=== PATIENT | male | born 1940 | race Caucasian/White ===

== ENCOUNTER → 2019-12-05 13:00 | Outpatient (BNVA) | payer MEDICARE, SELFPAY | PROVIDERS: Visit Provider Nurse Practitioner Family | DX: I10 Essential (primary) hypertension (principal); F17.200 Nicotine dependence, unspecified, uncomplicated; J44.9 Chronic obstructive pulmonary disease, unspecified | CPT/HCPCS: 80053; 80061; 85025 ==

== ENCOUNTER 2020-01-25 14:19 | Inpatient (IN) | payer MEDICARE, SELFPAY ==
[2020-01-25] VITALS (55 sets, daily range): BP systolic 67–133; BP diastolic 37–84; PULSE 77–126; RESP 16–40; TEMP 36.6–37.6; O2SAT 66–100; BMI 20.9
--- NOTE | 2020-01-25 | CTR_ITS ---
PROCEDURE INFORMATION: Exam: CT Pelvis Without Contrast; Skeletal Exam date and time: 01/25/2020 9:35 PM Age: 79 years old Clinical indication: Injury or trauma; Initial encounter; Blunt trauma (contusions or hematomas); Bilateral; Pelvic region; Patient HX: C/O lbp, sacral and hip pain with difficulty ambulating post fall; Additional info: Hip and sacral pain TECHNIQUE: Imaging protocol: Computed tomography images of the pelvis without contrast. Exam focused on the skeletal structures. Radiation optimization: All CT scans at this facility use at least one of these dose optimization techniques: automated exposure control; mA and/or kV adjustment per patient size (includes targeted exams where dose is matched to clinical indication); or iterative reconstruction. COMPARISON: CT abdomen pelvis wo con [id number] 01/25/2020 4:49 PM RADIATION DOSE METRICS: Total DLP (mGy-cm): 215.05 FINDINGS: Tubes, catheters and devices: A balloon bladder catheter is present. Stomach and bowel: There is no evidence of intestinal perforation or obstruction. Bones/joints: There is a nondisplaced isolated fracture of the left greater trochanter. No left subcapital or intertrochanteric femur fracture. No additional acute fracture in the pelvis. There is mild subcutaneous edema lateral to the left femur fracture. There is severe degenerative changes in the lumbar spine as described on the lumbar spine CT report of the same day. There is diffuse osteopenia. There are moderate degenerative changes in the hip joints. Old healed fractures of the right inferior pubic ramus and right acetabulum are noted with bridging bone. No acute sacral fracture. There are moderate degenerative changes in the sacroiliac joints. Soft tissues: Unremarkable. Other findings: No evidence of avascular necrosis CT/CT pelvis wo con [id number] IMPRESSION: 1. There is a nondisplaced isolated fracture of the left greater trochanter. No left subcapital or intertrochanteric femur fracture. Old healed pelvic fractures are noted. 2. Severe degenerative changes in the spine are noted. Radiation Dose CTDIVOL = (mGy): DLP = 215.05 (mGy-cm)
--- NOTE | 2020-01-25 14:39 | XRR_ITS ---
PROCEDURE INFORMATION: Exam: XR Chest, 1 View Exam date and time: 01/25/2020 2:46 PM Age: 79 years old Clinical indication: Shortness of breath; Additional info: Dyspnea/cough TECHNIQUE: Imaging protocol: XR of the chest Views: 1 view. COMPARISON: No relevant prior studies available. FINDINGS: Lungs: Unremarkable. No consolidation. Pleural space: Unremarkable. No pleural effusion. No pneumothorax. Heart/Mediastinum: Unremarkable. No cardiomegaly. Bones/joints: Unremarkable. XR/XR chest 1V portable [id number] IMPRESSION: No acute findings.
--- NOTE | 2020-01-25 14:42 | ECG_ITS ---
[facility] Test Date: 2020-01-25 Pat Name: Gordon Gooden Department: Room: Gender: Male Structural Drafter: : 1940 Requested By: Abdoul Power Order Number: [id number] Akhil MD: Karine Jama M.D. Measurements Intervals [place] Rate: 105 P: [place]: -1 QRS: -54 QRSD: 93 T: 77 QT: 415 QTc: 549 Interpretive Statements ATRIAL FIBRILLATION WITH RAPID VENTRICULAR RESPONSE WITH ABERRANT CONDUCTION OR VENTRICULAR PREMATURE COMPLEXES LEFT ANTERIOR FASCICULAR BLOCK [QRS AXIS <= -45, QR IN I, RS IN II] ST DEVIATION AND MODERATE T-WAVE ABNORMALITY, CONSIDER ANTEROLATERAL ISCHEMIA [-0.1+ mV T WAVE IN V3-V6] Compared to ECG 07/19/2017 11:58:04 Aberrant conduction of supraventricular beat(s) now present Left anterior fascicular block now present T-wave abnormality now present Possible ischemia now present Sinus rhythm no longer present Left ventricular hypertrophy no longer present Electronically Signed On 01-25-2020 18:12:19 CDT by Karine Jama M.D. [id number]
[2020-01-25 14:46] LABS: ABG PCO2 31.9 mmHg (35-45); ABG PH Result 7.35 (7.35-7.45); HCO3 ABG 17.6 mmol/L (22-26)
--- NOTE | 2020-01-25 14:46 | W.ED.SOB ---
HPI - SOB/Dyspnea General: Chief Complaint: Shortness of Breath/Dyspnea Stated Complaint: RESP DISTRESS Time Seen by Provider: 01/25/20 14:37 History of Present Illness: HPI Narrative: 79-year-old male brought in by EMS with shortness of breath, he arrived with CPAP on. Recheck CPAP after a month a nonrebreather and his sats are at 90% see gases below. He is not able to give any history his did arrive and I went to talk to her she states he has been very sleepy lately please complained of anything there is been no complaint of fever. No nausea vomiting or diarrhea no one else at home is been sick he is not any chest or abdominal pain he usually sees nurse practitioner and mammaoth since Dr. Carlos retired. As far as the is aware he is not had any change of medicines recently. Initially when the patient arrived to talk to him he stated he wanted to be intubated however is not aware of time place or person I talked to the she is adamant that he did not want to be intubated at any point. MD elicited complaint: shortness of breath Pertinent past history: COPD Onset (ago): day(s) Timing: constant Severity: mild Exacerbating factors: exertion Relieving factors: oxygen, rest and upright position Known history of: COPD Associated symptoms: Deny cough, myalgias, rash or sense of impending doom Treatment prior to arrival: oxygen Review of Systems General: Reports: ROS unobtainable due to medical condition and ROS unobtainable due to mental status PFSH ED PFSH: Medical History Cancer, epiglottis COPD (chronic obstructive pulmonary disease) Hx of radiation therapy Hypertension Smoker unmotivated to quit Surgical History No significant past surgical history Family History Other Healthy adult Social History Smoking and tobacco status: current every day smoker cigarettes Packs smoked per day: 1.5 Alcohol intake: never Substance/Drug Use: never Household members: spouse Marital status: Current occupational status: retired Physical Exam Const: GENERAL APPEARANCE: cooperative and lethargic ORIENTATION/CONSCIOUSNESS: Yes lethargic HENMT: COMMON NORMALS: normocephalic and atraumatic HEAD & SCALP: normocephalic and atraumatic Eye: COMMON NORMALS: Equal, round and reactive pupils present, EOMs intact bilaterally, conjunctivae normal and no scleral icterus CONJUNCTIVA: Yes conjunctivae normal PUPIL: Yes Equal, round and reactive pupils present Neck/C-Spine: COMMON NORMALS: no lymphadenopathy, supple and no JVD Lymph: LYMPHATIC: no lymphadenopathy noted and no lymphedema noted Resp: EFFORT & INSPECTION: No able to speak in complete sentences AUSCULTATION: rales bilateral at the base and diminished lung sounds Cardio: COMMON NORMALS: no JVD RATE: tachycardic RHYTHM: abnormal rhythm irregularly irregular GI: COMMON NORMALS: Soft to palpation and No hepatosplenomegaly present AUSCULTATION: Yes normoactive bowel sounds PALPATION: Yes Soft to palpation, No Tenderness to palpation present (GI), No Guarding due to palpation present (GI) and Yes No hepatosplenomegaly present Extremity: COMMON NORMALS: normal to inspection, capillary refill normal, no clubbing, cyanosis or edema, no calf tenderness and no pedal edema Neuro: SENSORIUM/ORIENTATION: Yes lethargic Skin: COMMON NORMALS: no rashes or lesions noted GENERAL SKIN EXAM: no rashes or lesions noted Course Vital Signs: Vital signs: Vital Signs Temperature 97.9 F 01/27/20 04:00 Pulse Rate 100 01/27/20 05:00 Respiratory Rate 18 01/27/20 05:00 Blood Pressure 124/70 01/27/20 05:00 Pulse Oximetry 91 01/27/20 05:00 MDM - SOB/Dyspnea MDM Narrative: Medical decision making narrative: Initial blood pressure and 70 systolic patient responded very well to a fluid bolus pressure improved to 120 27 systolic he is in atrial fibrillation. Blood gases were good. He was switched to a BiPAP and is maintaining well. He is in atrial fibrillation. Linder was placed patient had a large amount of urine out and also had significant hematuria CT shows hydronephrosis and hydroureter. He has an elevated d-dimer although not some the source of clot at this point we did start him on heparin. He has no acute ST changes but does have elevated troponin. Finally has significant breakdown of the skin of the scrotum and penis almost appears as herpetic in nature there are no vesicles. With BiPAP he became more conscious and he denies significant pain of the penis. Discussed Dr. Mcgee will admit to the ICU. Currently he is on dopamine and BiPAP as well as heparin. Lab Data: Labs: Lab Results 01/25/20 01/25/20 01/25/20 Range/Units 14:10 14:29 14:29 WBC (4.0-10.0) 10^3/ uL RBC (4.1-5.3) 10^6/u L Hgb (11.7-16.6) g/dL Hct (42.0-52.0) % MCV (80-94) fL MCH (28.0-34.0) pg MCHC (30.0-36.0) g/dL RDW (12.1-15.1) % Plt Count (130-400) 10^3/c mm MPV (7.4-10.4) fL Neut % (Auto) % Lymph % (Auto) % Parke % (Auto) % Eos % (Auto) % Baso % (Auto) % Neut # (Auto) (1.8-7.7) 10^3/u L Lymph # (Auto) (0.8-4.8) 10^3/u L Parke # (Auto) (0.2-0.9) 10^3/u L Eos # (Auto) (0.0-0.8) 10^3/u L Baso # (Auto) (0.0-0.1) 10^3/u L Nucleated RBC % (a uto) % Nucleated RBCs # /100WBC PT 14.60 (12.1-14.9) SECO NDS INR 1.11 (0.8-1.2) APTT 26.5 (23.9-36.7) SECO NDS Fibrinogen 651 H (174-498) mg/dL D-Dimer >= 20.00 H (0-0.59) ug/mIFE U Specimen Type Art Sample Site Lt brach ABG pH 7.35 (7.35-7.45) ABG pCO2 31.9 L (35-45) mmHg ABG pO2 138.0 H (80.0-100.0) mmH g ABG HCO3 17.6 L (22-26) mmol/L ABG O2 Saturation 98.9 ABG Base Excess -7.0 L (-2.0-2.0) mmol/ L Jaime Test Na Hematocrit 41.2 L (42-52) % Hgb O2 Saturation 97.5 (95-100) % Carboxyhemoglobin 0.9 (0.4-20.1) %THgb Methemoglobin 0.4 (0.4-1.5) % Total Hemoglobin 13.4 L (14-18) g/dL Sodium 141.0 139 (131-143) mmol/L Potassium 3.4 L 3.7 (3.5-5.0) mmol/L Glucose 141.0 H 132 H (70-115) mg/dL Ionized Calcium 1.1 (1.1-1.4) mmol/L O2 Delivery Device Nrb O2 Liters/Min 15.0 % FiO2 100.0 % Specimen Drawn By [employer] Estate Appraiser ID Gd Chloride 101 (98-107) mmol/L Carbon Dioxide 18 L (22-29) mmol/L Anion Gap 23.7 H (5-19) BUN 55 H (8-23) mg/dL Creatinine 2.8 H (0.7-1.2) mg/dL GFR Calculation Not Reportable Estimat Average Gl ucose Hemoglobin A1c (4.0-6.0) % Calculated Osmolal ity 288 (285-295) mOsm/k g Lactic Acid (0.5-2.2) mmol/L Lactic Acid (Sepsi s) (0.5-2.2) mmol/L Calcium 8.3 L (8.5-10.5) mg/dL Magnesium 2.6 H (1.7-2.3) mg/dL Ferritin 511 H (30-400) ng/mL Total Bilirubin 1.4 H (0.15-1.2) mg/dL AST 28 (0-40) U/L ALT 24 (0-41) U/L Alkaline Phosphata se 90 (40-130) IU/L Lactate Dehydrogen ase 243 H (135-225) U/L Troponin T Baselin e (0-15) ng/L Troponin T 120 Min cowlitz (0-15) ng/L Delta Troponin T (0-10) ABS# C-Reactive Protein 151.2 H (0.0-4.9) mg/L NT-Pro-B Natriuret Pep 3617 H (0-450) pg/mL Total Protein 7.1 (6.6-8.7) g/dL Albumin 3.4 L (3.5-5.2) g/dL Globulin 3.7 (1.3-4.6) g/dL Triglycerides (0-150) mg/dL Cholesterol (0-200) mg/dL LDL Cholesterol, C alc (50-129) mg/dL Total VLDL Cholest renato (0-30) mg/dL HDL Cholesterol (60-100) mg/dL Cholesterol/HDL Ra joi (1.0-5.00) mg/dL Procalcitonin 0.48 (0-0.5) ng/mL Urine Color (Yellow) Urine Appearance (CLEAR) Urine pH (5-7) Ur Specific Gravit y (1.005-1.030) Urine Protein (Negative) Urine Glucose (UA) (Normal) Urine Ketones (Negative) Urine Blood (Negative) Urine Nitrate (Negative) Urine Bilirubin (NEGATIVE) Urine Urobilinogen (Negative) mg/dL Ur Leukocyte Anupama ase (Negative) Urine RBC (0-2) /hpf Urine WBC (0-5) /hpf Ur Squamous Epith Cells (0-5) Amorphous Sediment Urine Bacteria (NONE) SARS-CoV-2 Ag (Rap id) (Negative) 01/25/20 01/25/20 01/25/20 Range/Units 14:29 14:29 14:29 WBC 18.9 H (4.0-10.0) 10^3/ uL RBC 4.46 (4.1-5.3) 10^6/u L Hgb 13.4 (11.7-16.6) g/dL Hct 41.9 L (42.0-52.0) % MCV 93.9 (80-94) fL MCH 30.0 (28.0-34.0) pg MCHC 32.0 (30.0-36.0) g/dL RDW 15.3 H (12.1-15.1) % Plt Count 300 (130-400) 10^3/c mm MPV 11.7 H (7.4-10.4) fL Neut % (Auto) 91.6 % Lymph % (Auto) 2.9 % Parke % (Auto) 4.4 % Eos % (Auto) 0.1 % Baso % (Auto) 0.2 % Neut # (Auto) 17.29 H (1.8-7.7) 10^3/u L Lymph # (Auto) 0.6 L (0.8-4.8) 10^3/u L Parke # (Auto) 0.8 (0.2-0.9) 10^3/u L Eos # (Auto) 0.0 (0.0-0.8) 10^3/u L Baso # (Auto) 0.0 (0.0-0.1) 10^3/u L Nucleated RBC % (a uto) 0 % Nucleated RBCs # 0.0 /100WBC PT (12.1-14.9) SECO NDS INR (0.8-1.2) APTT (23.9-36.7) SECO NDS Fibrinogen (174-498) mg/dL D-Dimer (0-0.59) ug/mIFE U Specimen Type Sample Site ABG pH (7.35-7.45) ABG pCO2 (35-45) mmHg ABG pO2 (80.0-100.0) mmH g ABG HCO3 (22-26) mmol/L ABG O2 Saturation ABG Base Excess (-2.0-2.0) mmol/ L Jaime Test Hematocrit (42-52) % Hgb O2 Saturation (95-100) % Carboxyhemoglobin (0.4-20.1) %THgb Methemoglobin (0.4-1.5) % Total Hemoglobin (14-18) g/dL Sodium (131-143) mmol/L Potassium (3.5-5.0) mmol/L Glucose (70-115) mg/dL Ionized Calcium (1.1-1.4) mmol/L O2 Delivery Device O2 Liters/Min % FiO2 % Specimen Drawn By Commercial Real Estate Appraiser ID Chloride ([id number]) mmol/L Carbon Dioxide (22-29) mmol/L Anion Gap (5-19) BUN (8-23) mg/dL Creatinine (0.7-1.2) mg/dL GFR Calculation Estimat Average Gl ucose Hemoglobin A1c (4.0-6.0) % Calculated Osmolal ity (285-295) mOsm/k g Lactic Acid (0.5-2.2) mmol/L Lactic Acid (Sepsi s) (0.5-2.2) mmol/L Calcium (8.5-10.5) mg/dL Magnesium (1.7-2.3) mg/dL Ferritin (30-400) ng/mL Total Bilirubin (0.15-1.2) mg/dL AST (0-40) U/L ALT (0-41) U/L Alkaline Phosphata se (40-130) IU/L Lactate Dehydrogen ase (135-225) U/L Troponin T Baselin e 87 H (0-15) ng/L Troponin T 120 Min cowlitz (0-15) ng/L Delta Troponin T (0-10) ABS# C-Reactive Protein (0.0-4.9) mg/L NT-Pro-B Natriuret Pep (0-450) pg/mL Total Protein (6.6-8.7) g/dL Albumin (3.5-5.2) g/dL Globulin (1.3-4.6) g/dL Triglycerides 73 (0-150) mg/dL Cholesterol 116 (0-200) mg/dL LDL Cholesterol, C alc 67 (50-129) mg/dL Total VLDL Cholest renato 15 (0-30) mg/dL HDL Cholesterol 34 L (60-100) mg/dL Cholesterol/HDL Ra joi 3.41 (1.0-5.00) mg/dL Procalcitonin (0-0.5) ng/mL Urine Color (Yellow) Urine Appearance (CLEAR) Urine pH (5-7) Ur Specific Gravit y (1.005-1.030) Urine Protein (Negative) Urine Glucose (UA) (Normal) Urine Ketones (Negative) Urine Blood (Negative) Urine Nitrate (Negative) Urine Bilirubin (NEGATIVE) Urine Urobilinogen (Negative) mg/dL Ur Leukocyte Anupama ase (Negative) Urine RBC (0-2) /hpf Urine WBC (0-5) /hpf Ur Squamous Epith Cells (0-5) Amorphous Sediment Urine Bacteria (NONE) SARS-CoV-2 Ag (Rap id) (Negative) 01/25/20 01/25/20 01/25/20 Range/Units 14:40 14:44 16:25 WBC (4.0-10.0) 10^3/ uL RBC (4.1-5.3) 10^6/u L Hgb (11.7-16.6) g/dL Hct (42.0-52.0) % MCV (80-94) fL MCH (28.0-34.0) pg MCHC (30.0-36.0) g/dL RDW (12.1-15.1) % Plt Count (130-400) 10^3/c mm MPV (7.4-10.4) fL Neut % (Auto) % Lymph % (Auto) % Parke % (Auto) % Eos % (Auto) % Baso % (Auto) % Neut # (Auto) (1.8-7.7) 10^3/u L Lymph # (Auto) (0.8-4.8) 10^3/u L Parke # (Auto) (0.2-0.9) 10^3/u L Eos # (Auto) (0.0-0.8) 10^3/u L Baso # (Auto) (0.0-0.1) 10^3/u L Nucleated RBC % (a uto) % Nucleated RBCs # /100WBC PT (12.1-14.9) SECO NDS INR (0.8-1.2) APTT (23.9-36.7) SECO NDS Fibrinogen (174-498) mg/dL D-Dimer (0-0.59) ug/mIFE U Specimen Type Sample Site ABG pH (7.35-7.45) ABG pCO2 (35-45) mmHg ABG pO2 (80.0-100.0) mmH g ABG HCO3 (22-26) mmol/L ABG O2 Saturation ABG Base Excess (-2.0-2.0) mmol/ L Jaime Test Hematocrit (42-52) % Hgb O2 Saturation (95-100) % Carboxyhemoglobin (0.4-20.1) %THgb Methemoglobin (0.4-1.5) % Total Hemoglobin (14-18) g/dL Sodium (131-143) mmol/L Potassium (3.5-5.0) mmol/L Glucose (70-115) mg/dL Ionized Calcium (1.1-1.4) mmol/L O2 Delivery Device O2 Liters/Min % FiO2 % Specimen Drawn By Commercial Real Estate Appraiser ID Chloride (98-107) mmol/L Carbon Dioxide (22-29) mmol/L Anion Gap (5-19) BUN (8-23) mg/dL Creatinine (0.7-1.2) mg/dL GFR Calculation Estimat Average Gl ucose Hemoglobin A1c (4.0-6.0) % Calculated Osmolal ity (285-295) mOsm/k g Lactic Acid 4.3 H* (0.5-2.2) mmol/L Lactic Acid (Sepsi s) (0.5-2.2) mmol/L Calcium (8.5-10.5) mg/dL Magnesium (1.7-2.3) mg/dL Ferritin (30-400) ng/mL Total Bilirubin (0.15-1.2) mg/dL AST (0-40) U/L ALT (0-41) U/L Alkaline Phosphata se (40-130) IU/L Lactate Dehydrogen ase (135-225) U/L Troponin T Baselin e (0-15) ng/L Troponin T 120 Min cowlitz 119.6 H (0-15) ng/L Delta Troponin T 32.6 H* (0-10) ABS# C-Reactive Protein (0.0-4.9) mg/L NT-Pro-B Natriuret Pep (0-450) pg/mL Total Protein (6.6-8.7) g/dL Albumin (3.5-5.2) g/dL Globulin (1.3-4.6) g/dL Triglycerides (0-150) mg/dL Cholesterol (0-200) mg/dL LDL Cholesterol, C alc (50-129) mg/dL Total VLDL Cholest renato (0-30) mg/dL HDL Cholesterol (60-100) mg/dL Cholesterol/HDL Ra joi (1.0-5.00) mg/dL Procalcitonin (0-0.5) ng/mL Urine Color (Yellow) Urine Appearance (CLEAR) Urine pH (5-7) Ur Specific Gravit y (1.005-1.030) Urine Protein (Negative) Urine Glucose (UA) (Normal) Urine Ketones (Negative) Urine Blood (Negative) Urine Nitrate (Negative) Urine Bilirubin (NEGATIVE) Urine Urobilinogen (Negative) mg/dL Ur Leukocyte Anupama ase (Negative) Urine RBC (0-2) /hpf Urine WBC (0-5) /hpf Ur Squamous Epith Cells (0-5) Amorphous Sediment Urine Bacteria (NONE) SARS-CoV-2 Ag (Rap id) Negative (Negative) 01/25/20 01/25/20 01/25/20 Range/Units 16:25 16:30 17:39 WBC (4.0-10.0) 10^3/ uL RBC (4.1-5.3) 10^6/u L Hgb (11.7-16.6) g/dL Hct (42.0-52.0) % MCV (80-94) fL MCH (28.0-34.0) pg MCHC (30.0-36.0) g/dL RDW (12.1-15.1) % Plt Count (130-400) 10^3/c mm MPV (7.4-10.4) fL Neut % (Auto) % Lymph % (Auto) % Parke % (Auto) % Eos % (Auto) % Baso % (Auto) % Neut # (Auto) (1.8-7.7) 10^3/u L Lymph # (Auto) (0.8-4.8) 10^3/u L Parke # (Auto) (0.2-0.9) 10^3/u L Eos # (Auto) (0.0-0.8) 10^3/u L Baso # (Auto) (0.0-0.1) 10^3/u L Nucleated RBC % (a uto) % Nucleated RBCs # /100WBC PT (12.1-14.9) SECO NDS INR (0.8-1.2) APTT (23.9-36.7) SECO NDS Fibrinogen (174-498) mg/dL D-Dimer (0-0.59) ug/mIFE U Specimen Type Sample Site ABG pH (7.35-7.45) ABG pCO2 (35-45) mmHg ABG pO2 (80.0-100.0) mmH g ABG HCO3 (22-26) mmol/L ABG O2 Saturation ABG Base Excess (-2.0-2.0) mmol/ L Jaime Test Hematocrit (42-52) % Hgb O2 Saturation (95-100) % Carboxyhemoglobin (0.4-20.1) %THgb Methemoglobin (0.4-1.5) % Total Hemoglobin (14-18) g/dL Sodium (131-143) mmol/L Potassium (3.5-5.0) mmol/L Glucose (70-115) mg/dL Ionized Calcium (1.1-1.4) mmol/L O2 Delivery Device O2 Liters/Min % FiO2 % Specimen Drawn By Commercial Real Estate Appraiser ID Chloride (98-107) mmol/L Carbon Dioxide (22-29) mmol/L Anion Gap (5-19) BUN (8-23) mg/dL Creatinine (0.7-1.2) mg/dL GFR Calculation Estimat Average Gl ucose 111 Hemoglobin A1c 5.5 (4.0-6.0) % Calculated Osmolal ity (285-295) mOsm/k g Lactic Acid (0.5-2.2) mmol/L Lactic Acid (Sepsi s) 2.5 H (0.5-2.2) mmol/L Calcium (8.5-10.5) mg/dL Magnesium (1.7-2.3) mg/dL Ferritin (30-400) ng/mL Total Bilirubin (0.15-1.2) mg/dL AST (0-40) U/L ALT (0-41) U/L Alkaline Phosphata se (40-130) IU/L Lactate Dehydrogen ase (135-225) U/L Troponin T Baselin e (0-15) ng/L Troponin T 120 Min cowlitz (0-15) ng/L Delta Troponin T (0-10) ABS# C-Reactive Protein (0.0-4.9) mg/L NT-Pro-B Natriuret Pep (0-450) pg/mL Total Protein (6.6-8.7) g/dL Albumin (3.5-5.2) g/dL Globulin (1.3-4.6) g/dL Triglycerides (0-150) mg/dL Cholesterol (0-200) mg/dL LDL Cholesterol, C alc (50-129) mg/dL Total VLDL Cholest renato (0-30) mg/dL HDL Cholesterol (60-100) mg/dL Cholesterol/HDL Ra joi (1.0-5.00) mg/dL Procalcitonin (0-0.5) ng/mL Urine Color Red (Yellow) Urine Appearance Bloody A (CLEAR) Urine pH 9 H (5-7) Ur Specific Gravit y 1.010 (1.005-1.030) Urine Protein 1+ H (Negative) Urine Glucose (UA) Norm (Normal) Urine Ketones Negative (Negative) Urine Blood 3+ H (Negative) Urine Nitrate Negative (Negative) Urine Bilirubin Neg (NEGATIVE) Urine Urobilinogen Norm (Negative) mg/dL Ur Leukocyte Anupama ase 1+ H (Negative) Urine RBC Too numerous to c nt H (0-2) /hpf Urine WBC 5-10 H (0-5) /hpf Ur Squamous Epith Cells None (0-5) Amorphous Sediment Not Reportable Urine Bacteria 3+ H (NONE) SARS-CoV-2 Ag (Rap id) (Negative) Discharge Plan Discharge Patient Disposition: Admitted As Inpatient Admit Provider: Jacinto Mcgee Clinical Impression: Sepsis, Hematuria, Acute urinary retention, Rash of genital area, LASHON (acute kidney injury), Elevated d-dimer, A-fib, Troponin level elevated Condition: Stable Interventions: ED Discharge Assessment Last Done: 01/25/20 18:56 ED Charges Last Done: 01/25/20 18:56 Discharge Date/Time: 01/25/20 18:57 Coding Level of Care Code ED Implementation Engineer 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
[2020-01-25 14:47] LABS: Blood Gas Operator Identificat GD; Oxygen Device NRB; Oxygen Saturation ABG 98.9; Potassium Level - ABG 3.4 mmol/L (3.5-5.0)
[2020-01-25 14:48] LABS: Arterial Blood Gas Hematocrit 41.2 % (42-52); Blood Gas Sample Site LT BRACH; Blood Gas Sample Type ART; Carboxyhemoglobin 0.9 %THgb (0.4-20.1); HGB O2 Sat 97.5 % (95-100); Ionized Calcium Level - ABG 1.1 mmol/L (1.1-1.4); Methemoglobin 0.4 % (0.4-1.5); Total Hemoglobin 13.4 g/dL (14-18)
[2020-01-25] MEDS: sodium chloride 0.9% 1,769.01 ML 1769 ML IV (14:50)
[2020-01-25] MEDS: levofloxacin-dextrose 5 % 750 MG/150 ML PREMIX 100 MG IV (15:00)
[2020-01-25 15:11] LABS: Basophils % 0.2 %; Eosinophils % 0.1 %; Hematocrit 41.9 % (42.0-52.0); Hemoglobin 13.4 g/dL (11.7-16.6); Lymphocytes # 0.6 10^3/uL (0.8-4.8); Lymphocytes % 2.9 %; Mean Corpuscular Volume 93.9 fL (80-94); Mean Platelet Volume 11.7 fL (7.4-10.4); Monocytes # 0.8 10^3/uL (0.2-0.9); Monocytes % 4.4 %; Neutrophils # 17.29 10^3/uL (1.8-7.7); Neutrophils % 91.6 %; Nucleated Red Blood Cells % 0 %; Platelet Count 300 10^3/cmm (130-400); Red Blood Count 4.46 10^6/uL (4.1-5.3); Red Cell Distribution Width 15.3 % (12.1-15.1); White Blood Count 18.9 10^3/uL (4.0-10.0)
[2020-01-25 15:18] LABS: INR 1.11 (0.8-1.2)
[2020-01-25 15:19] LABS: Fibrinogen 651 mg/dL (174-498); Partial Thromboplastin Time 26.5 SECONDS (23.9-36.7)
[2020-01-25 15:30] LABS: Troponin(5th) Baseline 87 ng/L (0-15)
[2020-01-25 15:36] LABS: D Dimer >= 20.00 ug/mIFEU (0-0.59); NT Pro B Type Natriuretic Pept 3617 pg/mL (0-450); Procalcitonin 0.48 ng/mL (0-0.5)
[2020-01-25 15:38] LABS: SARS Covid-2 Antigen Negative (Negative)
[2020-01-25 15:48] LABS: Alanine Aminotransferase 24 U/L (0-41); Albumin Level 3.4 g/dL (3.5-5.2); Alkaline Phosphatase 90 IU/L (40-130); Anion Gap 23.7 (5-19); Aspartate Amino Transferase 28 U/L (0-40); Blood Urea Nitrogen 55 mg/dL (8-23); C Reactive Protein 151.2 mg/L (0.0-4.9); Calcium 8.3 mg/dL (8.5-10.5); Carbon Dioxide 18 mmol/L (22-29); Chloride 101 mmol/L (98-107); Ferritin 511 ng/mL (30-400); Globulin 3.7 g/dL (1.3-4.6); Glucose 132 mg/dL (65-115); Lactate Dehydrogenase 243 U/L (135-225); Magnesium 2.6 mg/dL (1.7-2.3); Osmolality Calculated 288 mOsm/kg (285-295); Potassium 3.7 mmol/L (3.5-5.1); Sodium 139 mmol/L (136-145); Total Bilirubin 1.4 mg/dL (0.15-1.2); Total Protein 7.1 g/dL (6.6-8.7)
[2020-01-25 15:49] LABS: Lactic Sepsis W/Reflex 4.3 mmol/L (0.5-2.2)
--- NOTE | 2020-01-25 16:06 | USR_ITS ---
PROCEDURE INFORMATION: Exam: US Duplex Lower Extremity Veins, Bilateral Exam date and time: 01/25/2020 4:40 PM Age: 79 years old Clinical indication: Abnormal findings; Abnormal lab test; Elevated d-dimer; Additional info: Elevated d dimer TECHNIQUE: Imaging protocol: Real-time duplex ultrasound of the extremities with 2-D restrepo scale, color Doppler flow and spectral waveform analysis with image documentation. Complete exam focused on the bilateral lower extremity veins. COMPARISON: No relevant prior studies available. FINDINGS: Right deep veins: Unremarkable. The common femoral, femoral, proximal profunda femoral and popliteal veins are patent without thrombus. Normal Doppler waveforms. Normal compressibility and/or augmentation response. Right superficial veins: Saphenofemoral junction is patent without thrombus. Left deep veins: Unremarkable. The common femoral, femoral, proximal profunda femoral and popliteal veins are patent without thrombus. Normal Doppler waveforms. Normal compressibility and/or augmentation response. Left superficial veins: Saphenofemoral junction is patent without thrombus. Soft tissues: Unremarkable. Other findings: Incidental note is made that the bilateral calf veins are not well visualized. US/CV venous duplex [facility] [id number] IMPRESSION: No evidence of deep vein thrombosis.
[2020-01-25] MEDS: DOPamine drip 400 MG/250 ML PREMIX 13.3 MG IV (16:34)
--- NOTE | 2020-01-25 16:35 | CTR_ITS ---
PROCEDURE INFORMATION: Exam: CT Abdomen And Pelvis Without Contrast Exam date and time: 01/25/2020 4:36 PM Age: 79 years old Clinical indication: Abdominal pain; Generalized; Patient HX: Urinary retention - gross hematuria - abd pain - elev wbc; Additional info: Urinary retention, abd pain, elevated wbc TECHNIQUE: Imaging protocol: Computed tomography of the abdomen and pelvis without contrast. Radiation optimization: All CT scans at this facility use at least one of these dose optimization techniques: automated exposure control; mA and/or kV adjustment per patient size (includes targeted exams where dose is matched to clinical indication); or iterative reconstruction. COMPARISON: CR Hip 2-3v RIGHT wwo Pelv* [id number] 10/09/2017 10:19 AM RADIATION DOSE METRICS: Total DLP (mGy-cm): 268.16 FINDINGS: Tubes, catheters and devices: A balloon bladder catheter is present. Lungs: There is ground-glass opacity in the left lung base compatible with pneumonitis/early pneumonic infiltrate. There is subpleural atelectasis of the dependent portions of the lungs. Mediastinal space: A moderate hiatal hernia is present. Liver: Unremarkable.No mass. Gallbladder and bile ducts: The gallbladder demonstrates layering density consistent with noncalcified stones or sludge. Pancreas: Normal. No ductal dilation. Spleen: Normal. No splenomegaly. Adrenals: Normal. No mass. Kidneys and ureters: There is moderate left hydronephrosis and hydroureter and mild right hydronephrosis and hydroureter but no obstructing calculi. Bilateral renal vascular calcifications are noted without definite nephrolithiasis. Stomach and bowel: Extensive diverticulosis is present in the distal colon. There is no evidence of intestinal perforation or obstruction. There is no evidence of colitis/diverticulitis. Appendix: No evidence of appendicitis. Intraperitoneal space: Unremarkable. No free air. No significant fluid collection. Retroperitoneal space: No retroperitoneal fluid or leak. Vasculature: There are atherosclerotic changes in the aorta. 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 The right common iliac artery measures 2.1 cm in the left measures 1.6 cm. Lymph nodes: Unremarkable.No enlarged lymph nodes. Bladder: The bladder wall is thickened but the bladder is also decompressed in this is nonspecific. Reproductive: The prostate demonstrates moderate nonspecific enlargement. The seminal vesicles are normal. Bones/joints: Old healed right pubic rami fractures are noted. There is bilateral spondylolysis of L5 with grade 1 spondylolisthesis of L5 on S1. There is severe degenerative changes in the lumbar spine. No acute bony abnormality. Soft tissues: Unremarkable. Other findings: There are moderate to severe emphysematous changes. CT/CT abdomen pelvis wo con [id number] IMPRESSION: 1. There is ground-glass opacity in the left lung base compatible with pneumonitis/early pneumonic infiltrate. 2. Bilateral hydronephrosis left greater than right without obstructing calculi. The bladder wall appears thickened although it is collapsed in this appearance may reflect bladder outlet obstruction due to prostatomegaly. 3. Diverticulosis without diverticulitis. No bowel thickening or inflammatory changes are identified. Radiation Dose CTDIVOL = (mGy): DLP = 268.16 (mGy-cm)
[2020-01-25 16:36] LABS: Reflex Lactate Order REFLEX LACTIC ORDERD
--- NOTE | 2020-01-25 16:42 | ECG_ITS ---
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 Measurements Intervals Heidrick Rate: 102 P: 258 ID: [id number] QRS: -72 QRSD: 78 T: 56 QT: 374 QTc: 488 Interpretive Statements ECTOPIC ATRIAL TACHYCARDIA WITH OCCASIONAL VENTRICULAR PREMATURE COMPLEXES LEFT AXIS DEVIATION [QRS AXIS < -30] POSSIBLE RIGHT VENTRICULAR CONDUCTION DELAY [RSR (QR) IN V1/V2] Compared to ECG 01/25/2020 14:32:32 Left-axis deviation now present Atrial fibrillation no longer present Aberrant conduction of supraventricular beat(s) no longer present Left anterior fascicular block no longer present T-wave abnormality no longer present Possible ischemia no longer present Electronically Signed On 01-25-2020 18:15:07 CDT by Karine Jama M.D. [id number]
[2020-01-25 16:48] LABS: Glucose Urine UA Norm (Normal); Protein Urine 1+ (Negative); Urine Appearance Bloody (CLEAR); Urine Color Red (Yellow); pH Urine 9 (5-7)
[2020-01-25 16:49] LABS: Add Urine Culture? Yes; Add Urine Microscopic? YES; Bacteria Urine 3+; Bilirubin Urine Neg (NEGATIVE); Blood Urine 3+ (Negative); Ketones Urine Negative (Negative); Leukocyte Esterase Urine 1+ (Negative); Nitrate Urine Negative (Negative); RBC Urine TOO NUMEROUS TO CNT /hpf (0-2); Urobilinogen Urine Norm (Negative)
--- NOTE | 2020-01-25 16:53 | PC.NURSE ---
1700 mL of bloody urine drained from catheter bag .
[2020-01-25 17:00] LABS: Troponin 5 2HR 119.6 ng/L (0-15); Troponin 5 2HR Delta 32.6 ABS# (0-10)
[2020-01-25] MEDS: heparin 5,000 unit/mL INJ 1 mL 5000 UNIT INJECTION (18:03)
[2020-01-25 18:19] LABS: Lactic Acid level (Lactate) 2.5 mmol/L (0.5-2.2)
--- NOTE | 2020-01-25 18:50 | PM.HP ---
Providers/Chief Complaint Admitting Physician: Jacinto Mcgee Chief Complaint: RESP DISTRESS History of Present Illness Gordon Gooden is a 79 year old male with history of laryngeal cancer, status post surgery, radiation therapy 1.5-2 years ago prescription with his , former smoker, but recently picked up smoking in about 6 months ago, says since then he has been coughing quite a bit, also his not been mobile, mostly spending time on a couch or in bed, she states that he takes an inhaler due to the prior laryngeal cancer. Is not aware of history of COPD, although this appears to be recorded in the past medical history, and there is emphysema noted on imaging, he states that he smokes about 1&1/2 packs/day currently. EMS was called for assessment due to shortness of breath, he arrived on CPAP. In ER he is noted hypotensive, with leukocytosis 18.9, A. fib with RVR, heart rates in 120s, blood pressure as low as 67/37, with acute kidney injury, creatinine 2.8, was started on dopamine support in ER after fluid boluses. His mental status did improve after fluid bolus. He also received a dose of Levaquin due to noted left lower lobe pneumonia on CT abdomen pelvis. In ER on placement of Linder noted to have bloody urine, 1700 mL emptied from the bag. Noted elevated troponin with positive delta, baseline 87, 2-hour troponin I 120. Noted elevated d-dimer over 20. Due to high risk of PE, as well as concern for possible NSTEMI he is started on anticoagulation with heparin drip. COVID-19 rapid antigen was tested and is negative. He was on BiPAP initially, however, had an episode of vomiting, and subsequently switched to simple mask. He has been tolerating this well. Saturations staying high 90s. He denies shortness of breath. He denies any chest pain or pressure. Denies any discomfort whatsoever actually. He knows he is in the hospital in [place], he does not remember the year. He denies having any issues with cough. Denies any hemoptysis. No complaints of chest pain or hemoptysis noted by his or [id number]. He and family deny prior hematuria. On CT abdomen pelvis noted to have hydronephrosis, left greater than right, with thickened urinary bladder wall, with concern for bladder outlet obstruction. He is on Cardizem drip for atrial fibrillation with RVR. Patient currently is awake and alert, hard of hearing, but conversant, although perhaps mildly confused. He does appear to understand enough that he is medically unwell. He does state that he would want attempted resuscitation in case of cardiopulmonary arrest. Per discussion with his she does confirm that they had previously discussed this and he did state that he would not want intubation. She agrees that perhaps he may have been meaning that he would not want prolonged resuscitation attempts or life support. Review of Systems Const: Denies: fever(s), chills, body aches or malaise Eyes: Denies: change in vision or eye redness ENMT: Denies: throat pain, oral sores or ear or mastoid pain Card: Denies: chest pain, edema, pre-syncope or dyspnea on exertion Resp: Denies: dyspnea, productive cough, change in phlegm color or hemoptysis GI: Denies: abdominal pain, nausea, vomiting, diarrhea, constipation, hematochezia or melena : Denies: flank pain, difficulty urinating, urinary frequency or hematuria Musc: Denies: back pain, joint swelling or joint redness Skin/Breast: Denies: rash, sores or new lesions Neuro: Denies: headache(s), numbness in extremities, weakness in extremities, dizziness, confusion or seizure-like activity Endo: Denies: polyuria or polydipsia Mirza/Lymph: Denies: easy bleeding or purpura All/Imm: Denies: urticaria, throat swelling or tongue swelling Medications/Allergies Home Medications Medication Instructions Recorded Confirmed Last Taken Type lisinopril 10 mg PO DAILY 01/25/20 01/25/20 Unknown History Allergies Allergy/AdvReac Type Severity Reaction Status Date / Time No Known Allergies Allergy Verified 01/25/20 14:31 PFSH Acute PFSH: Medical History Cancer, epiglottis COPD (chronic obstructive pulmonary disease) Hx of radiation therapy Hypertension Smoker unmotivated to quit Surgical History No significant past surgical history Family History Other Healthy adult Social History Smoking and tobacco status: current every day smoker cigarettes Packs smoked per day: 1.5 Alcohol intake: never Substance/Drug Use: never Household members: spouse Marital status: Current occupational status: retired Vitals/I&O/Wt Last Vital Signs Temp 99.6 F 01/25/20 14:24 Pulse 117 H 01/25/20 16:40 Resp 32 H 01/25/20 16:40 BP 86/53 01/25/20 16:40 Pulse Ox 96 01/25/20 16:40 Weight last 48 hrs Weight 58.967 kg Physical Exam Const: COMMON NORMALS: no acute distress and alert ORIENTATION/CONSCIOUSNESS: Yes awake, Yes oriented to person, Yes oriented to place and Yes confused (mildly. Is aware has low blood pressure. Is not sure how he wound up in the hospital.); not oriented to time OTHER: Disheveled. Smoke stained skin on the neck, nicotine stains on fingers. HENMT: COMMON NORMALS: oropharynx normal Neck/C-Spine: COMMON NORMALS: no JVD Resp: COMMON NORMALS: normal respiratory effort AUSCULTATION: rhonchi and wheezes Cardio: COMMON NORMALS: no JVD, regular rhythm, S1 normal heart sound present, S2 normal heart sound present and No murmurs present (Cardio) RATE: tachycardic RHYTHM: abnormal rhythm irregularly irregular HEART SOUNDS: S1 normal heart sound present and S2 normal heart sound present GI: COMMON NORMALS: Normal to inspection, nondistended, normoactive bowel sounds present, Soft to palpation and non-tender PALPATION: Yes Soft to palpation : SCROTUM: Yes erythematous and Yes Scrotal lesions present Extremity: COMMON NORMALS: no joint enlargement and no pedal edema Neuro: COMMON NORMALS: moves all extremities and no focal motor deficits MENINGEAL SIGNS: Yes no meningeal signs Skin: COMMON NORMALS: no rashes or lesions noted RASHES: rashes noted (genital) Urinary Catheter Management^: Linder: Cath Placed During This Visit: no Reason for Continuing Indwelling Catheter: Other Data : 01/25/20 14:29 01/25/20 14:29 Micro: Microbiology 01/25/20 14:45 Blood Culture - Preliminary Blood SPECIMEN COLLECTED 01/25/20 14:40 Blood Culture - Preliminary Blood SPECIMEN COLLECTED A&P Assessment and plan (1) Sepsis: Septic shock with leukocytosis of 18.9, tachypnea up to 33, tachycardia on presentation. Noted pneumonia left lower lobe. Possibility of urinary tract infection with hematuria, thickened urinary bladder wall, although suspicion for UTI is less. Lactic acid following resuscitation down from 4.3-2.5. Blood cultures drawn. Started on Levaquin. Received 30 cc/kg IV fluid challenge. Currently receiving dopamine infusion. Blood pressures have improved. He does appear quite dry. Will repeat additional small bolus. See if he responds. Attempt to wean down dopamine. Continue Levaquin. We will add Zosyn due to concern for possible aspiration given prior laryngeal radiation therapy, as well as his reports he mostly sleeps on the left side, and that appears where his infiltrate is. Discussed his critical condition with him, as well as with his . They understand that given he does not see a physician often, there may be other undiagnosed conditions, in addition to already complicated medical picture with septic shock, concern for possible PE, currently unable to evaluate more closely with CTA due to renal failure, requirement for anticoagulation, as well as concomitant hematuria. They understand the diagnostic and treatment plan, and are agreeable to proceed here. In case of cardiopulmonary arrest he does want attempted resuscitation. also reports per prior discussion he would not want prolonged attempts or prolonged life support. Status: Acute (2) Pneumonia: Noted left lower lobe groundglass opacity. COVID-19 is negative. Follow sputum culture. Continue Levaquin. Added Zosyn due to concern for possible aspiration given he has been more lethargic recently, sleeps mostly on the left side, and with history of laryngeal radiation therapy. Discussed with his , discussed also that he has underlying emphysema, COPD, which may make his recovery more difficult. He does not appear to be in exacerbation currently as well with wheezing, rhonchi on exam, cough, respiratory distress on presentation. Status: Acute (3) Bilateral hydronephrosis: This appears to be secondary to bladder outlet obstruction. Linder catheter placed in ER, but subsequently with hematuria. Due to need for anticoagulation appreciate urology recommendations. Priority is to make sure bladder is draining at this time, flashes, and possible CBI will be requested. His hemoglobin is not low, and chronic hematuria is not reported. He does have some thickening of bladder wall, with smoking history, elevated d-dimer, may benefit from additional evaluation after he recovers to exclude other potential underlying problems, perhaps even malignancy as discussed with him and his . Status: Acute (4) Hematuria: As above. We discussed also currently concern for possible underlying PE, and with hypotension, tachycardia, and acute renal failure, empiric anticoagulation until he can more safely undergo additional imaging by CTA. Will order VQ scan and see if this is possible/if he will be stable enough for this. Hematuria makes his anticoagulation more difficult. Will follow hemoglobin. If he is not able to tolerate anticoagulation, discussed alternative measures may need to be considered, possibly obtaining CTA regardless of renal function, and at the risk of contrast nephropathy, perhaps worsening renal failure, perhaps progressing to need for hemodialysis, if VTE noted, possibly needing placement of IVC filter. Patient understand the risks involved, at this time would like to proceed with anticoagulation, monitoring of hemoglobin, and urinary catheter management to prevent clots/obstruction. Status: Acute Qualifiers: Hematuria type: gross Qualified Code(s): R31.0 - Gross hematuria (5) LASHON (acute kidney injury): Acute kidney injury, with creatinine 2.8. Normal creatinine appears to be around 1. Appears he takes lisinopril at home, this may be multifactorial secondary hypotension, possibly also secondary to lisinopril, but also may be post renal with noted hydronephrosis, urinary retention secondary to bladder outlet obstruction. This should be relieved with placement of Linder catheter, continue catheter management due to hematuria as above. Lisinopril is on hold. Support blood pressure, avoid hypotension. Monitor EVANGELISTA, renal function. Avoid nephrotoxins. Status: Acute (6) Elevated d-dimer: Waited beyond 20. At this time not clear what causes. Lower extremity duplex is negative. High suspicion for PE as he is high risk with recent immobility, smoking, male gender, other risk factors. Concern for possibility of either recurrence of malignancy or new malignancy given heavy smoking. For now empirically continue heparin drip. Monitor hemoglobin. Status: Acute (7) Paroxysmal atrial fibrillation with RVR: Discussed with him and his . Currently empirically on anticoagulation due to concern for possible VTE, discussed long-term he may benefit from anticoagulation due to risk of CVA with underlying hypertension, and his age. Currently atrial fibrillation with RVR, heart rates in 120s. Was started on Cardizem drip, however, blood pressure soft. Will discontinue. Switch to amiodarone. Treat underlying conditions as above. Atrial fibrillation appears to be new finding. Once his heart rates improved, consider additional assessment by TTE. Once condition improves, consider additional assessment/stratification for coronary artery disease given risk factors. Status: Acute (8) Smoker unmotivated to quit: He was instructed previously to no longer smoke given the severity of cancer, with high risk of recurrence per discussion with his , however, states that he picked up smoking again about 6 months ago. He states smokes currently about 1.5 packs/day. Encourage cessation given detrimental effect of smoking to multiple organ systems, as well as problems noted here. Provide nicotine supplements if having withdrawal. Status: Acute (9) COPD (chronic obstructive pulmonary disease): COPD with acute exacerbation, wheezing, rhonchi on exam. Antibiotics as above. Due to respiratory stress on presentation we will add IV steroids. Breathing treatments. Sputum culture. Oxygen support. BiPAP as needed. Encourage smoking cessation. Status: Acute (10) Troponin level elevated: There is mild-moderate troponin elevation. Discussed with him and his . He has no chest pain. Discussed with him and his . He is currently in atrial fibrillation with RVR, hypotensive, with septic shock. This is more likely to be demand ischemia secondary to his other acute medical conditions, with mismatch and demand supply. He is at risk of coronary disease as well, and so once he is more stable may benefit from additional assessment for coronary disease. Discussed with him and his cannot exclude that he is not having a non-STEMI, although at this time he is started on anticoagulation as above, given hematuria, currently will not start aspirin. He is unable to receive beta-vini. We will check lipid profile. A1c. Continue to manage underlying conditions as above, maintain blood pressure. Assess TTE once his heart rate is under better control. Status: Acute (11) Hypertension: Lisinopril on hold due to hypotension, acute kidney injury. Status: Acute (12) Rash of genital area: For now we will add nystatin cream. Cannot exclude possibility of HSV, although no blisters are noted. No rash noted elsewhere. No sign of Rashid's gangrene. Maintain Linder catheter in place. Reassess. Antibiotics as above. reports he has recently funcionally declined. Has had urinary and fecal incontinence, perhaps after the fall. Possible cellulitis. Will check chlamydia/gonorrhea panel. HSV swab. Will place under contact isolation for now. Status: Acute Additional A&P Information Lactic acidosis Leukocytosis History of laryngeal cancer, status post radiation and chemotherapy, did not have surgery from what I can see from his follow-up with Dr. Tyson (although seems to think he may have). Recent functional decline: reports that for the past 6 weeks or so he has been mostly sleeping during the day, he has pretty much not been ambulatory. She does report that he had a fall and has been complaining of leg pain. We will go ahead and image bilateral hips given his fall and immobility. She does report bowel and bladder incontinence. Will assess also CT lumbar/sacral spine to exclude acute cord compression. Noncontrast due to acute kidney injury. Attestations Medical Necessity Statement*: Admission of over 2 midnights continued for assessment of management of septic shock, A. fib with RVR, acute kidney injury, possible PE, COPD exacerbation, troponin elevation, hematuria, other problems. Critical Care Time: In addition to noncritical issues 90 minutes critical care time spent on assessment management of immediately life-threatening issues of septic shock, hypotension, with organ injury with acute kidney injury, troponin elevation, atrial fibrillation with RVR, assessment of hemodynamic status, pressor support, assessment of underlying etiology, antibiotic therapy, assessment and management of hematuria while requiring anticoagulation, assessment for possible acute cord compression, and other problems outlined above. Assessment and plan discussed with ER physician, ER and ICU nursing staff, patient, family, and [facility] ascp consultant physician. 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
[2020-01-25] MEDS: heparin drip 25,000 UNIT/500 ML PREMIX 16.5 UNIT IV (18:55)
--- NOTE | 2020-01-25 19:02 | P.CONIM_ITS ---
Providers/Reason For Consult Consulting Physican/Specialty*: Urology/Sellers Reason for Consult*: Urinary Retention / Gross Hematuri Attending Physician: Jacinto Mcgee History of Present Illness History of Present Illness Gordon Gooden is a 79 year old male presenting in ED septic. Shirley placed with apparently large volume (1700cc) of bloody urine returned. CT: Bilateral hydronephrosis and thickened bladder wall (post shirley) Patient stated no bloody urine prior but not a reliable historian at this time at least due to acute illness. Urine has remained bloody but catheter seems to functioning. Complicated by plan to use heparin for concern for possible PE. 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 Consulted to provide assistance with the above urologic issues Review of Systems General: Reports: ROS unobtainable due to mental status (Not able to give reliable answers) Meds/Allergies Home Medications and Allergies Home Medications Medication Instructions Recorded Confirmed Last Taken Type lisinopril 10 mg PO DAILY 01/25/20 01/25/20 Unknown History Allergies Allergy/AdvReac Type Severity Reaction Status Date / Time No Known Allergies Allergy Verified 01/25/20 14:31 Current Medications Current Medications Generic Name Dose Route Start Last Admin Trade Name Freq PRN Reason Stop Dose Admin Dopamine HCl/Dextrose 400 mg in 250 mls @ 6.634 mls/hr 01/25/20 16:15 01/25/20 16:34 Intropin Drip IV 6 mcg/kg/min CONT PENNY 13.3 mls/hr Administration Protocol 3 MCG/KG/MIN Heparin Sodium/Sodium Chloride 25,000 unit in 500 mls @ 0 mls/hr 01/25/20 18:15 01/25/20 18:55 Heparin Drip IV 14 unit/kg/hr .Q0M PENNY 16.5 mls/hr Administration Protocol Per Protocol PFSH Acute PFSH: Medical History Cancer, epiglottis COPD (chronic obstructive pulmonary disease) Hx of radiation therapy Hypertension Smoker unmotivated to quit Surgical History No significant past surgical history Family History Other Healthy adult Social History Smoking and tobacco status: current every day smoker cigarettes Packs smoked per day: 1.5 Alcohol intake: never Substance/Drug Use: never Household members: spouse Marital status: Current occupational status: retired Vitals/I&O/Wt Last Vital Signs Temp 99.6 F 01/25/20 14:24 Pulse 112 H 01/25/20 18:56 Resp 20 H 01/25/20 18:56 BP 98/45 01/25/20 18:56 Pulse Ox 97 01/25/20 18:56 Weight last 48 hrs Weight 130 lb Physical Exam Const: GENERAL APPEARANCE: cooperative and ill appearing NUTRITIONAL APPEARANCE: cachectic HENMT: COMMON NORMALS: normocephalic and atraumatic HEAD & SCALP: normocephalic and atraumatic Resp: EFFORT & INSPECTION: No respiratory distress and No labored : OTHER: Uncircumcised phallus with erythema, Shirley catheter draining bloody urine. No clots Extremity: COMMON NORMALS: no clubbing, cyanosis or edema Psych: COMMON NORMALS: negative for mental status grossly normal and negative for Normal thought process present ATTITUDE: Yes calm THOUGHT PROCESS: abnormal Urinary Catheter Management^: Shirley: Cath Placed During This Visit: no Reason for Continuing Indwelling Catheter: Other Data Micro: Micro: Microbiology 01/25/20 14:45 Blood Culture - Pr eliminary Blood [facility] 01/25/20 14:40 Blood Culture - Pr eliminary Blood [facility] A&P Assessment and plan (1) Hematuria: Place large bore 3 way shirley. Manually irrrigate and start CBI once bladder free of clots. Status: Acute Qualifiers: Hematuria type: gross Qualified Code(s): R31.0 - Gross hematuria (2) Acute urinary retention: Looks like chronic to a degree with bilateral associated hydro. Maintain shirley Status: Acute (3) Bilateral hydronephrosis: Likely secondary to bladder outlet obstruction. Status: Acute Consult Attestations Medical Necessity Statement: See attending. Coding Level of Care Code Acute Story Reader for [facility] Sydnie Diagnoses Hematuria R31.0 Hematuria type: gross Acute urinary retention R33.8 Bilateral hydronephrosis N13.30
[2020-01-25 19:29] LABS: Platelet Count 244 10^3/cmm (130-400)
--- NOTE | 2020-01-25 20:12 | CTR_ITS ---
PROCEDURE INFORMATION: Exam: CT Lumbar Spine Without Contrast Exam date and time: 01/25/2020 10:30 PM Age: 79 years old Clinical indication: Injury or trauma; Initial encounter; Blunt trauma (contusions or hematomas); Patient HX: C/O lbp and difficulty ambulating post fall; Additional info: Fall, immobility, urinary and fecal incontinuence TECHNIQUE: Imaging protocol: Computed tomography images of the lumbar spine without contrast. Radiation optimization: All CT scans at this facility use at least one of these dose optimization techniques: automated exposure control; mA and/or kV adjustment per patient size (includes targeted exams where dose is matched to clinical indication); or iterative reconstruction. COMPARISON: No relevant prior studies available. RADIATION DOSE METRICS: Total DLP (mGy-cm): 1483.93 FINDINGS: Vertebrae: There is diffuse osteopenia. There is bilateral spondylolysis of L5 with grade 1 spondylolisthesis of L5 on S1. There is degenerative grade 1 spondylolisthesis of L4 on L5. The vertebral body heights are maintained. No acute fracture. Discs/Spinal canal/Neural foramina: There is severe degenerative changes in the lumbar spine. There is severe stenosis of the spinal canal at L4-L5 due to a small disc bulge and marked facet and ligamentum flavum hypertrophy accentuated by the spondylolisthesis. There is a small disc bulge at L5-S1 with moderate to severe bilateral foraminal narrowing but no central canal stenosis. At L3-L4, there is a small disc bulge but no stenosis or significant foraminal narrowing. At L2-L3, there are posterior osteophytes with a small disc bulge. No critical stenosis. Kidneys and ureters: There is moderate left hydronephrosis extending out of the field of view and mild to moderate right hydronephrosis without obstructing calculi. Renal vascular calcifications are noted. Vasculature: There is aneurysmal dilatation of the distal abdominal aorta measuring 2.9 x 3.3 cm in size. No evidence of leak or retroperitoneal fluid. Soft tissues: Unremarkable. CT/CT lumbar spine wo con* [id number] IMPRESSION: 1. There is severe stenosis of the spinal canal at L4-L5 due to a small disc bulge and marked facet and ligamentum flavum hypertrophy accentuated by the spondylolisthesis. 2. Severe degenerative changes. No acute bony abnormality. 3. Multiple levels of foraminal narrowing and stenosis greatest at L4-L5 where there is severe stenosis due to the combination of a disc bulge, spondylolisthesis and marked bony proliferative changes. 4. There is moderate left hydronephrosis extending out of the field of view and mild to moderate right hydronephrosis without obstructing calculi. 3.3 cm distal abdominal aortic aneurysm. Radiation Dose CTDIVOL = (mGy): DLP = 1483.93 (mGy-cm)
[2020-01-25] MEDS: sodium chloride 0.9% 1,000 ML 150 ML IV (20:32)
[2020-01-25] MEDS: piperacillin-tazobactam 3.375 GM in sodium chloride 0.9% (plus) 50 ML IV (20:33)
--- NOTE | 2020-01-25 20:42 | ECG_ITS ---
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 Measurements Intervals [place] Rate: 103 P: [place]: -1 QRS: -68 QRSD: 92 T: 77 QT: 379 QTc: 498 Interpretive Statements ATRIAL FIBRILLATION WITH RAPID VENTRICULAR RESPONSE MARKED LEFT AXIS DEVIATION [QRS AXIS < -30] POSSIBLE RIGHT VENTRICULAR CONDUCTION DELAY [RSR (QR) IN V1/V2] ANTEROSEPTAL MYOCARDIAL INFARCTION [40+ ms Q WAVE IN V1-V4], OF INDETERMINATE AGE Compared to ECG 01/25/2020 16:20:24 Myocardial infarct finding now present Ventricular premature complex(es) no longer present Electronically Signed On 01-26-2020 19:00:06 CDT by Karine Jama M.D. [id number]
[2020-01-25] MEDS: ipratropium-albuterol 3 mL Neb INHALATION (21:20)
[2020-01-25 21:29] LABS: Troponin 5 6HR 166.4 ng/L (0-15); Troponin 5 6HR Delta 79.4 ng/L (0-12)
[2020-01-25 21:36] LABS: Chol HDL Ratio 3.41 mg/dL (1.0-5.00); Cholesterol 116 mg/dL (0-200); HDL Cholesterol 34 mg/dL (60-100); LDL Cholesterol Calculated 67 mg/dL (50-129); Triglycerides 73 mg/dL (0-150); VLDL Cholestrol Calculation 15 mg/dL (0-30)
--- NOTE | 2020-01-25 21:37 | PC.NURSE ---
Contacted Dr. Russell re: order verification, verbal orders received. Linder catheter changed out to a 20F 3-way for possible CBI per order from Dr. Sellers. Patient specimen from penis collected for testing, patient tolerated all well.
[2020-01-25 21:42] LABS: Estmated Average Glucose 111; Hemoglobin A1C 5.5 % (4.0-6.0)
[2020-01-25] MEDS: pantoprazole 40 mg SDV IVP (22:16)
[2020-01-25] MEDS: metoprolol tartrate 25 mg Tablet 12.5 MG PO (22:16)
--- NOTE | 2020-01-25 23:21 | PC.NURSE ---
Shirley catheter exchanged for a 20F 3-way CBI catheter per Dr. Sellers, shirley insertion difficult to visualize urethral opening, second RN assisted, able to advance catheter with adequate urine return noted in shirley tubing. Will irrigate periodically throughout shift.
[2020-01-25 23:53] LABS: Hemoglobin 11.6 g/dL (11.7-16.6)
[2020-01-26] VITALS (49 sets, daily range): BP systolic 70–139; BP diastolic 38–91; PULSE 64–98; RESP 0–31; TEMP 36.6–36.7; O2SAT 77–100
[2020-01-26 00:06] LABS: Alanine Aminotransferase 20 U/L (0-41); Albumin Level 2.7 g/dL (3.5-5.2); Alkaline Phosphatase 80 IU/L (40-130); Anion Gap 18.5 (5-19); Aspartate Amino Transferase 29 U/L (0-40); Blood Urea Nitrogen 59 mg/dL (8-23); Calcium 7.9 mg/dL (8.5-10.5); Carbon Dioxide 19 mmol/L (22-29); Chloride 110 mmol/L (98-107); Globulin 2.9 g/dL (1.3-4.6); Glucose 113 mg/dL (65-115); Osmolality Calculated 298 mOsm/kg (285-295); Potassium 3.5 mmol/L (3.5-5.1); Sodium 144 mmol/L (136-145); Total Bilirubin 0.8 mg/dL (0.15-1.2); Total Protein 5.6 g/dL (6.6-8.7)
--- NOTE | 2020-01-26 00:25 | PC.NURSE ---
Oxygen probe unable to adequately read patient's oxygen levels. Multiple probes have been placed, replaced, and moved. Occasional waveform reads 95% for SPO2. Patient on bipap now, no respiratory distress noted.
[2020-01-26 00:30] LABS: Partial Thromboplastin Time 66.3 SECONDS (23.9-36.7)
--- NOTE | 2020-01-26 00:46 | PC.NURSE ---
Bipap placed on patient by RT, patient attempts to take bipap mask off, reorientation attempted.
[2020-01-26] MEDS: sodium chloride 0.9% 1,000 ML 150 ML IV ×3 (02:51→16:43)
[2020-01-26] MEDS: ipratropium-albuterol 3 mL Neb INHALATION ×4 (04:05→20:27)
[2020-01-26 05:27] LABS: Basophils % 0.1 %; Hematocrit 33.5 % (42.0-52.0); Hemoglobin 10.5 g/dL (11.7-16.6); Lymphocytes # 0.4 10^3/uL (0.8-4.8); Lymphocytes % 2.8 %; Mean Corpuscular HGB Conc 31.3 g/dL (30.0-36.0); Mean Corpuscular Volume 95.7 fL (80-94); Mean Platelet Volume 11.6 fL (7.4-10.4); Monocytes # 0.6 10^3/uL (0.2-0.9); Neutrophils # 12.81 10^3/uL (1.8-7.7); Neutrophils % 92.5 %; Nucleated Red Blood Cells % 0 %; Platelet Count 209 10^3/cmm (130-400); Red Cell Distribution Width 15.3 % (12.1-15.1); White Blood Count 13.9 10^3/uL (4.0-10.0)
[2020-01-26 05:47] LABS: Partial Thromboplastin Time 62.7 SECONDS (23.9-36.7)
[2020-01-26 05:54] LABS: Alanine Aminotransferase 17 U/L (0-41); Albumin Level 2.4 g/dL (3.5-5.2); Alkaline Phosphatase 70 IU/L (40-130); Anion Gap 15.7 (5-19); Aspartate Amino Transferase 22 U/L (0-40); Blood Urea Nitrogen 55 mg/dL (8-23); Calcium 7.7 mg/dL (8.5-10.5); Carbon Dioxide 19 mmol/L (22-29); Chloride 113 mmol/L (98-107); Globulin 2.8 g/dL (1.3-4.6); Glucose 110 mg/dL (65-115); Osmolality Calculated 297 mOsm/kg (285-295); Potassium 3.7 mmol/L (3.5-5.1); Sodium 144 mmol/L (136-145); Total Bilirubin 0.6 mg/dL (0.15-1.2); Total Protein 5.2 g/dL (6.6-8.7)
[2020-01-26] MEDS: pantoprazole 40 mg SDV IVP (08:28)
[2020-01-26] MEDS: piperacillin-tazobactam 3.375 GM in sodium chloride 0.9% (plus) 50 ML IV ×2 (08:29→20:18)
--- NOTE | 2020-01-26 09:39 | P.PN_ITS ---
Subjective Subjective: Interval history: He is somnolent this morning, but wakes up to loud voice, answers questions, falls back asleep. Denies pain or discomfort. Denies chest pain or pressure. Denies abdominal discomfort. Vitals/I&O/Wt Last Vital Signs Temp 97.9 F 01/26/20 04:00 Pulse 78 01/26/20 08:00 Resp 31 H 01/26/20 08:00 BP 114/70 01/26/20 08:00 Pulse Ox 92 01/26/20 08:00 01/25/20 01/26/20 01/26/20 22:59 06:59 14:59 Intake Total 997.5 / 997.5 1000 / 1000 Output Total 300 / 300 650 / 950 250 / 250 Balance -300 / -300 347.5 / 47.5 750 / 750 Weight last 48 hrs Weight 58.967 kg Weight 58.967 kg Physical Exam Const: COMMON NORMALS: no acute distress and alert ORIENTATION/CONSCIOUSNESS: Yes awake, Yes oriented to person, Yes oriented to place and Yes confused (mildly. Is aware has low blood pressure. Is not sure how he wound up in the hospital.); not oriented to time OTHER: Somnolent. Wakes up to loud voice and shoulder shake. Disheveled. Smoke stained skin on the neck, nicotine stains on fingers. HENMT: COMMON NORMALS: oropharynx normal Neck/C-Spine: COMMON NORMALS: no meningeal signs and no JVD Resp: COMMON NORMALS: normal respiratory effort AUSCULTATION: no rhonchi and wheezes (mild on L. Better today.) Cardio: COMMON NORMALS: no JVD, regular rhythm, S1 normal heart sound present, S2 normal heart sound present and No murmurs present (Cardio) RATE: tachycardic RHYTHM: regular rhythm and abnormal rhythm irregularly irregular HEART SOUNDS: S1 normal heart sound present and S2 normal heart sound present GI: COMMON NORMALS: Normal to inspection, nondistended, normoactive bowel sounds present, Soft to palpation and non-tender PALPATION: Yes Soft to palpation : SCROTUM: Yes erythematous and Yes Scrotal lesions present (dry cracked, erythematous skin on penis and scrotum) Extremity: COMMON NORMALS: no joint enlargement and no pedal edema Neuro: COMMON NORMALS: moves all extremities and no focal motor deficits SENSORIUM/ORIENTATION: Yes alert, Yes oriented to person, Yes oriented to place and No oriented to time MENINGEAL SIGNS: Yes no meningeal signs Skin: COMMON NORMALS: no rashes or lesions noted GENERAL SKIN EXAM: no rashes or lesions noted RASHES: rashes noted (genital) Urinary Catheter Management^: Linder: Cath Placed During This Visit: yes, but has since been removed by the nurse Reason for Continuing Indwelling Catheter: Accurate Measurement of Urinary Output in Critically Ill Patients Date Urinary Catheter Removed: 01/25/20 Time Urinary Catheter Discontinued: 22:20 3-way Urethral CBI: Cath Placed During This Visit: no Reason for Continuing Indwelling Catheter: Accurate Measurement of Urinary Output in Critically Ill Patients Data : 01/26/20 05:17 01/26/20 05:17 Micro: Microbiology 01/25/20 14:40 Blood Culture - Preliminary Blood Gram positive martin 01/25/20 14:45 Blood Culture - Preliminary Blood SPECIMEN COLLECTED A&P Assessment and plan (1) Sepsis: Shock has resolved. He was weaned off pressor, currently blood pressures are good. He is afebrile. Leukocytosis is somewhat better at 13.9. Pneumonia left lower lobe. Possibility of urinary tract infection with hematuria, thickened urinary bladder wall, although suspicion for UTI is less. Lactic acid improved. Blood cultures drawn. Continue Levaquin, Zosyn. Concern for possible aspiration given prior laryngeal radiation therapy, as well as his reports he mostly sleeps on the left side, and that appears where his infiltrate is. Atempted to call spouse for an update, but could not reach her. In case of cardiopulmonary arrest he does want attempted resuscitation. also reports per prior discussion he would not want prolonged attempts or prolonged life support. Status: Acute (2) Pneumonia: Follow-up sputum culture. Continue Levaquin, Zosyn. Concern for possible aspiration. Concern for underlying PE given elevated risk, hypoxia, tachycardia, low blood pressure. High risk. VQ ordered, but has to be able to stay still for it. Consider CTA if renal function improves sufficiently. Empirically on anticoagulation for now. Noted left lower lobe groundglass opacity. COVID-19 rapid antigen (97% sensitivity) is negative. Possible aspiration given he has been more lethargic recently, sleeps mostly on the left side, and with history of laryngeal radiation therapy. Also with COPD exacerbation with wheezing, rhonchi. Status: Acute (3) Bilateral hydronephrosis: Continue decompression with Linder. This appears to be secondary to bladder outlet obstruction. Linder catheter placed in ER, but subsequently with hematuria. Due to need for anticoagulation appreciate urology recommendations. Priority is to make sure bladder is draining at this time, flashes, and possible CBI will be requested. His hemoglobin is not low, and chronic hematuria is not reported. He does have some thickening of bladder wall, with smoking history, elevated d-dimer, may benefit from additional evaluation after he recovers to exclude other potential underlying problems, perhaps even malignancy as discussed with him and his . Status: Acute (4) Hematuria: Improved today. As above. For now continues empirically on anticoagulation. Monitor hemoglobin. Suspected due to injury from Linder. But will need additional work-up for other possible causes of hematuria and bladder wall thickening after he improves given underlying risk factors for malignancy. Status: Acute Qualifiers: Hematuria type: gross Qualified Code(s): R31.0 - Gross hematuria (5) LASHON (acute kidney injury): With mild improvement with fluid challenge, decompression of hydronephrosis. Hold lisinopril. Monitor EVANGELISTA, renal function. Maintain blood pressures. Appears he takes lisinopril at home, this may be multifactorial secondary hypotension, possibly also secondary to lisinopril, but also may be post renal with noted bilateral hydronephrosis on presentation. Avoid nephrotoxins. Status: Acute (6) Elevated d-dimer: D-dimer elevated beyond 20. At this time not clear what causes. Lower extremity duplex is negative. High suspicion for PE as he is high risk with recent immobility, smoking, male gender, other risk factors. Concern for possibility of either recurrence of malignancy or new malignancy given heavy smoking. For now empirically continue heparin drip. Monitor hemoglobin. We will need additional work-up after he recovers. Status: Acute (7) Paroxysmal atrial fibrillation with RVR: HR 70-80. Continue low dose metoprolol. Treat underlying causes. Given risk factors long-term if can tolerate would benefit from anticoagulation for stroke prevention. Currently empirically on anticoagulation due to concern for possible VTE, discussed long-term he may benefit from anticoagulation due to risk of CVA with underlying hypertension, and his age. Treat underlying conditions as above. Atrial fibrillation appears to be new finding. Once his heart rates improved, consider additional assessment by TTE. Once condition improves, consider additional assessment/stratification for coronary artery disease given risk factors. Status: Acute (8) COPD (chronic obstructive pulmonary disease): Acute exacerbation of COPD, today sounds better, although still having mild wheezing on the left. Will decrease steroid frequency. Taper off as tolerating. Antibiotics as above. Breathing treatments. Sputum culture. Oxygen support. BiPAP as needed. Encourage smoking cessation. Status: Acute (9) Troponin level elevated: He is still not having any chest pain. EKG has not been suggestive of acute KY, and so suspect that is more likely demand ischemia/type II [place], however, NSTEMI is possible still, with troponin rising with significant delta, up to the highest 166. His hematuria has improved. Hemoglobin is with mild decline, however, without profound anemia. We will start him on some aspirin. Monitor for any worsening of bleeding, and aspirin may need to be discontinued. He is not a candidate currently for more invasive risk stratification/management. Continue low-dose beta-vini. Will add statin. A1c is 5.5. Continue to encourage smoking cessation. Monitor blood pressures and optimize control long- term. In addition he may need additional assessment with perhaps a stress test once he becomes more stable for underlying coronary disease which may be contributing to the current picture. Continue to manage underlying conditions as above, maintain blood pressure. Assess TTE. Status: Acute (10) Hypertension: Lisinopril on hold due to hypotension, acute kidney injury. Metoprolol. Status: Acute (11) Rash of genital area: For now we will add nystatin cream. Cannot exclude possibility of HSV, although no blisters are noted. No rash noted elsewhere. No sign of Rashid's gangrene. Maintain Linder catheter in place. Reassess. Antibiotics as above. reports he has recently funcionally declined. Has had urinary and fecal incontinence, perhaps after the fall. Possible cellulitis, but does not appear like typical cellullitis. Add linezolid. Check chlamydia/gonorrhea panel. HSV swab. Contact isolation for now. Status: Acute (12) Smoker unmotivated to quit: He was instructed previously to no longer smoke given the severity of cancer, with high risk of recurrence per discussion with his , however, states that he picked up smoking again about 6 months ago. He states smokes currently about 1.5 packs/day. Encourage cessation given detrimental effect of smoking to multiple organ systems, as well as problems noted here. Provide nicotine supplements if having withdrawal. Status: Acute (13) Acute anemia: Hemoglobin did decrease from initial 13.4, down to 10.5, however, was quite hemoconcentrated on presentation, dehydrated. Did receive quite a bit of IV fluid. Does have acute blood loss secondary to hematuria. Will check Hemoccult as well. Hematuria is better today, however, is still needing therapeutic anticoagulation empirically due to high concern for PE until he is able to be closer assessed for it. Also started on aspirin due to possible non-STEMI. We will monitor hemoglobin. Transfuse if decreased below 8-9 given cannot rule out that he does not have coronary ischemia, if develops profuse bleeding, may need to discontinue anticoagulation, aspirin or both. Status: Acute Additional A&P Information Lactic acidosis Leukocytosis History of laryngeal cancer, status post radiation and chemotherapy, did not have surgery from what I can see from his follow-up with Dr. Tyson (although seems to think he may have). Recent functional decline: reports that for the past 6 weeks or so he has been mostly sleeping during the day, he has pretty much not been ambulatory. She does report that he had a fall and has been complaining of leg pain. We will go ahead and image bilateral hips given his fall and immobility. She does report bowel and bladder incontinence. Will assess also CT lumbar/sacral spine to exclude acute cord compression. Noncontrast due to acute kidney injury. Early decub sores noted on bony promences on back, elbow and a few other locations. Reposition frequently. Improve nutrition once he is able to tolerate diet reliably. Attestations Medical Necessity Statement*: Continue admission for assessment of management of sepsis, pneumonia, possible UTI, high suspicion for PE, empirically on anticoagulation, also with hematuria, bladder outlet obstruction, acute kidney injury, troponin elevation, and other medical problems noted above. Coding Level of Care Code Acute Global Marketing Operations Manager for g Fwd Exam Comprehensive Diagnoses Sepsis A41.9 Pneumonia J18.9 Bilateral hydronephrosis N13.30 Hematuria R31.0 Hematuria type: gross LASHON (acute kidney injury) N17.9 Elevated d-dimer R79.89 Paroxysmal atrial fibrillation with RVR I48.0 COPD (chronic obstructive pulmonary disease) J44.9 Troponin level elevated R79.89 Hypertension I10 Rash of genital area R21 Smoker unmotivated to quit F17.200 Acute anemia D64.9
--- NOTE | 2020-01-26 10:10 | PC.NURSE ---
Addendum entered by Chloe Dhillon RN 01/26/20 10:14: Is alert and oriented to self only. Original Note: Behavior This nurse entered patients room to reposition him and he refused. While this nurse was standing in doorway of room patient began pulling and attempting to remove cords. Patient was redirected and then turned himself to left side.
[2020-01-26] MEDS: aspirin 325 mg Tablet PO (11:21)
--- NOTE | 2020-01-26 11:52 | PC.RESP ---
Smoking Cessation and Pulmonary Rehab information sent to patient.
[2020-01-26 12:00] LABS: Hemoglobin 10.7 g/dL (11.7-16.6)
[2020-01-26] MEDS: linezolid premix 600 MG/300 ML PREMIX 300 MG IV (12:17)
[2020-01-26 18:40] LABS: Partial Thromboplastin Time 72.2 SECONDS (23.9-36.7)
[2020-01-26] MEDS: atorvastatin 40 mg Tablet PO (20:18)
--- NOTE | 2020-01-26 20:38 | PC.NURSE ---
Patient lying on left side, refusing to turn and reposition. Educated patient regarding left hip area becoming more red, susceptible to breakdown/infection, patient did not seem to understand. New optiform placed on maicol prominence, patient highly encouraged to turn to right side, tolerated well.
[2020-01-26] MEDS: heparin drip 25,000 UNIT/500 ML PREMIX 16.5 UNIT IV (21:39)
[2020-01-27] VITALS (46 sets, daily range): BP systolic 97–139; BP diastolic 55–108; PULSE 66–113; RESP 11–33; TEMP 36.5–36.6; O2SAT 78–97
[2020-01-27] MEDS: sodium chloride 0.9% 1,000 ML 150 ML IV ×4 (00:25→20:41)
[2020-01-27 01:14] LABS: Partial Thromboplastin Time 110.6 SECONDS (23.9-36.7)
[2020-01-27] MEDS: linezolid premix 600 MG/300 ML PREMIX 300 MG IV ×2 (01:49→11:45)
[2020-01-27] MEDS: ipratropium-albuterol 3 mL Neb INHALATION (03:04)
[2020-01-27 05:41] LABS: Basophils % 0.1 %; Hemoglobin 10.1 g/dL (11.7-16.6); Lymphocytes # 0.3 10^3/uL (0.8-4.8); Mean Corpuscular HGB Conc 29.7 g/dL (30.0-36.0); Mean Corpuscular Hemoglobin 28.9 pg (28.0-34.0); Mean Corpuscular Volume 97.4 fL (80-94); Mean Platelet Volume 11.6 fL (7.4-10.4); Monocytes # 0.6 10^3/uL (0.2-0.9); Monocytes % 4.1 %; Neutrophils # 12.85 10^3/uL (1.8-7.7); Neutrophils % 93.1 %; Nucleated Red Blood Cells % 0 %; Platelet Count 208 10^3/cmm (130-400); Red Blood Count 3.49 10^6/uL (4.1-5.3); Red Cell Distribution Width 15.4 % (12.1-15.1); White Blood Count 13.8 10^3/uL (4.0-10.0)
[2020-01-27 05:57] LABS: Alanine Aminotransferase 15 U/L (0-41); Albumin Level 2.2 g/dL (3.5-5.2); Alkaline Phosphatase 61 IU/L (40-130); Anion Gap 12.5 (5-19); Aspartate Amino Transferase 19 U/L (0-40); Blood Urea Nitrogen 37 mg/dL (8-23); Calcium 7.6 mg/dL (8.5-10.5); Carbon Dioxide 19 mmol/L (22-29); Chloride 114 mmol/L (98-107); Globulin 2.9 g/dL (1.3-4.6); Glucose 153 mg/dL (65-115); Osmolality Calculated 295 mOsm/kg (285-295); Potassium 3.5 mmol/L (3.5-5.1); Sodium 142 mmol/L (136-145); Total Bilirubin 0.4 mg/dL (0.15-1.2); Total Protein 5.1 g/dL (6.6-8.7)
[2020-01-27 06:00] LABS: Partial Thromboplastin Time 98.2 SECONDS (23.9-36.7)
--- NOTE | 2020-01-27 06:00 | XR_ITS ---
WS: [id number] EXAM: AP CHEST: PORTABLE UPRIGHT DATE OF EXAM: 01/27/2020, 0537 hours COMPARISON: Chest x-ray from 01/25/2020. HISTORY: Patient is 79 years old with hypoxemia. History of throat cancer.. FINDINGS: The cardiac silhouette is stable and considered within normal limits. The mediastinal contours are similar. Calcified plaque in the aorta. The pulmonary vascularity is normal. Chronic lung changes seen. Underlying interstitial fibrotic changes are demonstrated. The right lung is hyperinflated but otherwise clear. There has been interval progression of infiltrate in the left lung base suggesting an underlying pneumonitis. Trace left effusion. No pneumothorax. Bone density is decreased. Arthritis in both shoulders with secondary signs of full thickness rotator cuff tearing felt to be present. XR/XR chest 1V portable [id number] IMPRESSION: COPD changes with hyperinflation and fibrosis. Findings suggesting a developing pneumonia left lung base either in the lingula or lower lobe. Trace left effus ion.
--- NOTE | 2020-01-27 07:25 | PM.PN ---
Subjective Subjective: Interval history: He is somnolent this morning, but wakes up to loud voice, answers questions, falls back asleep. Denies pain or discomfort. Denies chest pain or pressure. Denies abdominal discomfort. Vitals/I&O/Wt Last Vital Signs Temp 97.9 F 01/27/20 04:00 Pulse 100 01/27/20 05:00 Resp 18 01/27/20 05:00 BP 124/70 01/27/20 05:00 Pulse Ox 91 01/27/20 05:00 01/26/20 01/27/20 01/27/20 22:59 06:59 14:59 Intake Total 1811.1 / 3211.1 1118.70 / 4329.80 Output Total 450 / 1150 1300 / 2450 Balance 1361.1 / 2061.1 -181.30 / 1879.80 Weight last 48 hrs Weight 58.74 kg Weight 58.967 kg Weight 58.967 kg Physical Exam Const: COMMON NORMALS: no acute distress and patient oriented x3 Resp: COMMON NORMALS: normal respiratory effort and clear to auscultation bilaterally (But overall decreased air movement throughout) AUSCULTATION: clear to auscultation bilaterally (But overall decreased air movement throughout) Cardio: COMMON NORMALS: S2 normal heart sound present RHYTHM: abnormal rhythm irregularly irregular HEART SOUNDS: S2 normal heart sound present OTHER: No lower extremity edema GI: COMMON NORMALS: Normal to inspection, nondistended, normoactive bowel sounds present, Soft to palpation and non-tender PALPATION: Yes Soft to palpation Neuro: COMMON NORMALS: patient oriented x3 and no focal motor deficits Skin: NARRATIVE SKIN EXAM: Small slightly indurated lesion on penis, appears chronic Urinary Catheter Management^: Linder: Cath Placed During This Visit: yes, but has since been removed by the nurse Reason for Continuing Indwelling Catheter: Accurate Measurement of Urinary Output in Critically Ill Patients Date Urinary Catheter Removed: 01/25/20 Time Urinary Catheter Discontinued: 22:20 3-way Urethral CBI: Cath Placed During This Visit: no Reason for Continuing Indwelling Catheter: Accurate Measurement of Urinary Output in Critically Ill Patients Data : 01/27/20 05:35 01/27/20 05:35 Micro: Microbiology 01/25/20 14:45 Blood Culture - Preliminary Blood NEGATIVE TO DATE 01/25/20 14:40 Blood Culture - Preliminary Blood Gram positive martin A&P Assessment and plan (1) Sepsis: Shock has resolved. He was weaned off pressor, currently blood pressures are good. He is afebrile. Leukocytosis is somewhat better at 13.9. Pneumonia left lower lobe. Possibility of urinary tract infection with hematuria, thickened urinary bladder wall, although suspicion for UTI is less. Lactic acid improved. Blood cultures drawn. Continue Levaquin, Zosyn. Concern for possible aspiration given prior laryngeal radiation therapy, as well as his reports he mostly sleeps on the left side, and that appears where his infiltrate is. Atempted to call spouse for an update, but could not reach her. In case of cardiopulmonary arrest he does want attempted resuscitation. also reports per prior discussion he would not want prolonged attempts or prolonged life support. Status: Acute (2) Pneumonia: Community-acquired pneumonia. Follow-up sputum culture. Continue Levaquin, Zosyn. Concern for possible aspiration. Concern for underlying PE given elevated risk, hypoxia, tachycardia, low blood pressure. High risk. VQ ordered, but has to be able to stay still for it. Consider CTA if renal function improves sufficiently. Empirically on anticoagulation for now. Noted left lower lobe groundglass opacity. COVID-19 rapid antigen (97% sensitivity) is negative. Possible aspiration given he has been more lethargic recently, sleeps mostly on the left side, and with history of laryngeal radiation therapy. Also with COPD exacerbation with wheezing, rhonchi. Status: Acute (3) Bilateral hydronephrosis: Continue decompression with Linder. This appears to be secondary to bladder outlet obstruction. Linder catheter placed in ER, but subsequently with hematuria. Due to need for anticoagulation appreciate urology recommendations. Priority is to make sure bladder is draining at this time, flashes, and possible CBI will be requested. His hemoglobin is not low, and chronic hematuria is not reported. He does have some thickening of bladder wall, with smoking history, elevated d-dimer, may benefit from additional evaluation after he recovers to exclude other potential underlying problems, perhaps even malignancy as discussed with him and his . Status: Acute (4) Hematuria: Improved today. As above. For now continues empirically on anticoagulation. Monitor hemoglobin. Suspected due to injury from Linder. But will need additional work-up for other possible causes of hematuria and bladder wall thickening after he improves given underlying risk factors for malignancy. Status: Acute Qualifiers: Hematuria type: gross Qualified Code(s): R31.0 - Gross hematuria (5) LASHON (acute kidney injury): With mild improvement with fluid challenge, decompression of hydronephrosis. Hold lisinopril. Monitor EVANGELISTA, renal function. Maintain blood pressures. Appears he takes lisinopril at home, this may be multifactorial secondary hypotension, possibly also secondary to lisinopril, but also may be post renal with noted bilateral hydronephrosis on presentation. Avoid nephrotoxins. Status: Acute (6) Elevated d-dimer: D-dimer elevated beyond 20. At this time not clear what causes. Lower extremity duplex is negative. High suspicion for PE as he is high risk with recent immobility, smoking, male gender, other risk factors. Concern for possibility of either recurrence of malignancy or new malignancy given heavy smoking. For now empirically continue heparin drip. Monitor hemoglobin. We will need additional work-up after he recovers. Status: Acute (7) Paroxysmal atrial fibrillation with RVR: HR 70-80. Continue low dose metoprolol. Treat underlying causes. Given risk factors long-term if can tolerate would benefit from anticoagulation for stroke prevention. Currently empirically on anticoagulation due to concern for possible VTE, discussed long-term he may benefit from anticoagulation due to risk of CVA with underlying hypertension, and his age. Treat underlying conditions as above. Atrial fibrillation appears to be new finding. Once his heart rates improved, consider additional assessment by TTE. Once condition improves, consider additional assessment/stratification for coronary artery disease given risk factors. Status: Acute (8) COPD (chronic obstructive pulmonary disease): Acute exacerbation of COPD, today sounds better, although still having mild wheezing on the left. Will decrease steroid frequency. Taper off as tolerating. Antibiotics as above. Breathing treatments. Sputum culture. Oxygen support. BiPAP as needed. Encourage smoking cessation. Status: Acute (9) Troponin level elevated: He is still not having any chest pain. EKG has not been suggestive of acute WV, and so suspect that is more likely demand ischemia/type II [place], however, NSTEMI is possible still, with troponin rising with significant delta, up to the highest 166. His hematuria has improved. Hemoglobin is with mild decline, however, without profound anemia. We will start him on some aspirin. Monitor for any worsening of bleeding, and aspirin may need to be discontinued. He is not a candidate currently for more invasive risk stratification/management. Continue low-dose beta-vini. Will add statin. A1c is 5.5. Continue to encourage smoking cessation. Monitor blood pressures and optimize control long-term. In addition he may need additional assessment with perhaps a stress test once he becomes more stable for underlying coronary disease which may be contributing to the current picture. Continue to manage underlying conditions as above, maintain blood pressure. Assess TTE. Status: Acute (10) Hypertension: Lisinopril on hold due to hypotension, acute kidney injury. Metoprolol. Status: Acute (11) Rash of genital area: For now we will add nystatin cream. Cannot exclude possibility of HSV, although no blisters are noted. No rash noted elsewhere. No sign of Rashid's gangrene. Maintain Linder catheter in place. Reassess. Antibiotics as above. reports he has recently funcionally declined. Has had urinary and fecal incontinence, perhaps after the fall. Possible cellulitis, but does not appear like typical cellullitis. Add linezolid. Check chlamydia/gonorrhea panel. HSV swab. Contact isolation for now. Status: Acute (12) Smoker unmotivated to quit: He was instructed previously to no longer smoke given the severity of cancer, with high risk of recurrence per discussion with his , however, states that he picked up smoking again about 6 months ago. He states smokes currently about 1.5 packs/day. Encourage cessation given detrimental effect of smoking to multiple organ systems, as well as problems noted here. Provide nicotine supplements if having withdrawal. Status: Acute (13) Acute anemia: Hemoglobin did decrease from initial 13.4, down to 10.5, however, was quite hemoconcentrated on presentation, dehydrated. Did receive quite a bit of IV fluid. Does have acute blood loss secondary to hematuria. Will check Hemoccult as well. Hematuria is better today, however, is still needing therapeutic anticoagulation empirically due to high concern for PE until he is able to be closer assessed for it. Also started on aspirin due to possible non-STEMI. We will monitor hemoglobin. Transfuse if decreased below 8-9 given cannot rule out that he does not have coronary ischemia, if develops profuse bleeding, may need to discontinue anticoagulation, aspirin or both. Status: Acute Additional A&P Information Non-ST elevation WV, most likely of type II secondary to A. fib and pneumonia. Present on admission. Acute hypoxic respiratory failure, present on admission. Secondary to pneumonia. Lactic acidosis Leukocytosis History of laryngeal cancer, status post radiation and chemotherapy, did not have surgery from what I can see from his follow-up with Dr. Tyson (although seems to think he may have). Recent functional decline: reports that for the past 6 weeks or so he has been mostly sleeping during the day, he has pretty much not been ambulatory. She does report that he had a fall and has been complaining of leg pain. We will go ahead and image bilateral hips given his fall and immobility. She does report bowel and bladder incontinence. Will assess also CT lumbar/sacral spine to exclude acute cord compression. Noncontrast due to acute kidney injury. Early decub sores noted on bony promences on back, elbow and a few other locations. Reposition frequently. Improve nutrition once he is able to tolerate diet reliably. PLAN: Discontinue Zosyn and continue Levaquin and linezolid for now. Start patient on Cardizem as his heart rate at times goes in 110s to 120s. Discontinue heparin drip and start patient on Eliquis for stroke prevention. Monitor hemoglobin and platelets. Will discontinue steroids as patient currently is not in COPD exacerbation and most likely it is currently the cause of patient's leukocytosis. Patient's hematuria appears to be clearing. Awaiting echocardiogram. Will keep patient in ICU for now as he still requires 5 L of oxygen Attestations Medical Necessity Statement*: Patient with hypoxic respiratory failure, pneumonia and A. fib with RVR requires close ICU monitoring and treatment. Time Spent in Patient Care: 16 - 35 minutes Coding Level of Care Code Acute Shift Superintendent Caustic Cresylate for g Fwd Diagnoses Sepsis A41.9 Pneumonia J18.9 Bilateral hydronephrosis N13.30 Hematuria R31.0 Hematuria type: gross LASHON (acute kidney injury) N17.9 Elevated d-dimer R79.89 Paroxysmal atrial fibrillation with RVR I48.0 COPD (chronic obstructive pulmonary disease) J44.9 Troponin level elevated R79.89 Hypertension I10 Rash of genital area R21 Smoker unmotivated to quit F17.200 Acute anemia D64.9
[2020-01-27] MEDS: dilTIAZem 30 mg Tablet PO ×3 (08:05→20:40)
[2020-01-27] MEDS: apixaban 5 mg Tablet 2.5 MG PO ×2 (08:05→18:49)
[2020-01-27] MEDS: pantoprazole 40 mg SDV IVP (08:06)
[2020-01-27] MEDS: aspirin 81 mg EC Tablet PO (08:06)
[2020-01-27 12:43] LABS: Rapid Plasma Reagin Syphilis Nonreactive (Nonreactive)
[2020-01-27] MEDS: levofloxacin-dextrose 5 % 750 MG/150 ML PREMIX 100 MG IV (14:18)
--- NOTE | 2020-01-27 18:15 | PC.NURSE ---
Patient has been lying on left side for majority of shift. Education provided on measures to decrease incidents of skin breakdown, and importance of turning schedule. Pt continued to refuse turn. Pillows placed around bony prominences, and friction management completed. Multiple attempts throughout shift to set up for bed bath, change of linens, and change of gown. Pt refused each attempt. Rag was used to wipe down arm areas, and new reinforcement used to IV sites dressings. Pillow cases also changed. Pt was educated on initial refusal of Elliquis medication, and its use of combatting against formation of clots in cases of A Fib presentation. After completion of education, patient agreed to take medication. Due to patient fidgeting, Pulse Ox difficult to obtain. Spot checks has been done, and shows SPO2 is actually greater than 90%.
--- NOTE | 2020-01-27 20:08 | PC.NURSE ---
Patient refused initial attempt at bed bath, linen changed. Lights turned on in room, patient shown dirty linens underneath him, given bed bath despite patient refusal at first. Patient noted to not be AOx4, so bed bath and linen change given, optiform changed on various spots on patient. Patient tolerated fairly well.
[2020-01-27] MEDS: atorvastatin 40 mg Tablet PO (20:41)
--- NOTE | 2020-01-27 21:30 | USCV_ITS ---
Gordon Gooden Age: 79 Gender: M : 1940 Exam Date: 01/27/2020 07:36 Ordering Phys: Jacinto Mcgee MD Technologist: Hilda Alejandre Exam Location: [facility] [place] Indication: Hypotension, new atrial fibrillation, possible pulmonary embolus BP: 124 / 70 HR: 78 Rhythm: Technical Quality: Technically difficult study MEASUREMENTS (Male / Female) Normal Values 2D ECHO LV Diastolic Diameter PLAX 4.1 cm 4.2 - 5.9 / 3.9 - 5.3 cm LV Systolic Diameter PLAX 3.6 cm LV Chamber Size 4.1 cm IVS Diastolic Thickness 1.0 cm 0.6 - 1.0 / 0.6 - 0.9 cm IVS Systolic Thickness 1.2 cm LVPW Diastolic Thickness 1.2 cm 0.6 - 1.0 / 0.6 - 0.9 cm LVPW Systolic Thickness 2.1 cm RV Chamber Size 3.5 cm LVOT Diameter 2.0 cm LV Ejection Fraction 2D Teich 30.2 % LV Ejection Fraction MOD 2C 55.9 % LV Ejection Fraction 2C AL 55.7 % LA Diameter 3.3 cm LA Width 3.1 cm LA Height 4.1 cm RA Width 3.0 cm RA Height 4.2 cm Aorta at Sinotubular Diameter 2.9 cm M-MODE LV Diastolic Diameter MM 4.8 cm 4.2 - 5.9 / 3.9 - 5.3 cm LV Systolic Diameter MM 3.4 cm LV Ejection Fraction MM Teich 55.8 % IVS Diastolic Thickness MM 1.8 cm 0.6 - 1.0 / 0.6 - 0.9 cm IVS Systolic Thickness MM 1.9 cm LVPW Diastolic Thickness MM 1.3 cm 0.6 - 1.0 / 0.6 - 0.9 cm LVPW Systolic Thickness MM 1.9 cm RV Diastolic Diameter MM 1.9 cm Aortic Annulus Diameter 3.7 cm LA Ao Ratio MM 0.9 MV E Point Septal Separation 0.8 cm DOPPLER AV Peak Velocity 186.0 cm/s LVOT Peak Velocity 80.0 cm/s AV Area Cont Eq vti 1.5 cm squared AV Area Cont Eq pk 1.4 cm squared MV Area PHT 5.0 cm squared MV E' Velocity 72.0 cm/s TR Peak Velocity 304.0 cm/s TR Peak Gradient 37.0 mmHg TV Peak E Velocity 74.0 cm/s Right Atrial Pressure 3.0 mmHg Pulmonary Artery Systolic Pressu 40.0 mmHg PV Peak Velocity 43.0 cm/s RV Acceleration Time 0.1 s RV Ejection Time 0.2 s RV AcT/ET 0.3 FINDINGS Left Ventricle Normal left ventricular cavity size. Ventricle left ventricular cavity is not well visualized and foreshortened therefore cannot assess LV function accurately however it appeared to me it is moderately reduced with possible EF around 40%. There appeared to be global hypokinesis. Right Ventricle Normal right ventricular size. Moderate pulmonary hypertension, RVSP 40 mmHg. Right Atrium Moderately increased right atrial size. Left Atrium Moderately increased left atrial size. Mitral Valve Moderately thickened mitral valve. No mitral valve stenosis. Trace mitral valve regurgitation. Aortic Valve Severe aortic valve calcification. Moderate aortic valve stenosis, mean gradient 7.2 mmHg, KENDRA 1.5 cm squared. Tricuspid Valve [id number] tricuspid valve regurgitation. Pulmonic Valve Structurally normal pulmonic valve without significant stenosis. There is no pulmonic regurgitation. Pericardium Normal pericardium without effusion. Aorta Normal ascending aorta dimension. CONCLUSIONS 1-Normal left ventricular cavity size. Ventricle left ventricular cavity is not well visualized and foreshortened therefore cannot assess LV function accurately however it appeared to me it is moderately reduced with possible EF around 40%. There appeared to be global hypokinesis. 2-Normal right ventricular size. Moderate pulmonary hypertension, RVSP 40 mmHg. 3-Moderately increased left atrial size. 4-Moderately increased right atrial size. 5-Moderately thickened mitral valve. No mitral valve stenosis. Trace mitral valve regurgitation. 6-Severe aortic valve calcification. Moderate aortic valve stenosis, mean gradient 7.2 mmHg, KENDRA 1.5 cm squared. 9-Fmli-lb-moderate tricuspid valve regurgitation. 8-There is no pericardial effusion. 9-Right atrial pressure is around 5 mm of mercury. 10-No significant change since the prior echocardiogram study of 11/13/2017. Karine Jama MD (Electronically Signed) Final Date: 27 January 2020 19:58 S
[2020-01-28] VITALS (28 sets, daily range): BP systolic 100–167; BP diastolic 60–112; PULSE 63–98; RESP 11–32; TEMP 36–36.9; O2SAT 82–94
--- NOTE | 2020-01-28 00:38 | PC.NURSE ---
Patient educated and reminded multiple times to wear his nasal cannula providing supplemental oxygen. Patient rounded on frequently, oxygen tubing found to be around neck and not in nose/mouth. Patient states don't worry about it! . Oxygen replaced into appropriate orifices to provide adequate oxygenation.
[2020-01-28] MEDS: linezolid premix 600 MG/300 ML PREMIX 300 MG IV ×2 (01:13→14:20)
[2020-01-28] MEDS: sodium chloride 0.9% 1,000 ML 150 ML IV ×2 (03:17→09:11)
[2020-01-28 03:33] LABS: Basophils % 0.1 %; Hematocrit 32.3 % (42.0-52.0); Hemoglobin 9.7 g/dL (11.7-16.6); Lymphocytes # 0.6 10^3/uL (0.8-4.8); Lymphocytes % 4.2 %; Mean Corpuscular Hemoglobin 28.7 pg (28.0-34.0); Mean Corpuscular Volume 95.6 fL (80-94); Mean Platelet Volume 12.1 fL (7.4-10.4); Monocytes # 0.8 10^3/uL (0.2-0.9); Monocytes % 5.8 %; Neutrophils # 12.41 10^3/uL (1.8-7.7); Neutrophils % 89.2 %; Nucleated Red Blood Cells % 0 %; Platelet Count 236 10^3/cmm (130-400); Red Blood Count 3.38 10^6/uL (4.1-5.3); Red Cell Distribution Width 15.3 % (12.1-15.1); White Blood Count 13.9 10^3/uL (4.0-10.0)
--- NOTE | 2020-01-28 04:13 | PC.NURSE ---
Patient refusing turns, remains on left side despite education.
[2020-01-28 04:24] LABS: Alanine Aminotransferase 14 U/L (0-41); Albumin Level 2.2 g/dL (3.5-5.2); Alkaline Phosphatase 63 IU/L (40-130); Anion Gap 11.4 (5-19); Aspartate Amino Transferase 21 U/L (0-40); Blood Urea Nitrogen 25 mg/dL (8-23); Calcium 7.4 mg/dL (8.5-10.5); Carbon Dioxide 21 mmol/L (22-29); Chloride 111 mmol/L (98-107); Globulin 2.6 g/dL (1.3-4.6); Glucose 126 mg/dL (65-115); Osmolality Calculated 288 mOsm/kg (285-295); Potassium 3.4 mmol/L (3.5-5.1); Sodium 140 mmol/L (136-145); Total Bilirubin 0.3 mg/dL (0.15-1.2); Total Protein 4.8 g/dL (6.6-8.7)
--- NOTE | 2020-01-28 08:15 | PC.SOCIAL ---
IMM Page 2 of IMM explained to patient. Initialed, dated, and timed and placed in chart. Copy provided to patient.
--- NOTE | 2020-01-28 08:28 | P.PN_ITS ---
Subjective Subjective: Interval history: Patient reports feeling better this morning compared to yesterday. He denies shortness of breath or chest pain. Denies abdominal pain. His oxygen requirement appears to be improving. Vitals are stable. White blood cell count did not change much but platelets increased slightly. EF is 40% on echocardiogram with global hypokinesis. Urine and blood culture came back with gram-negative martin. Vitals/I&O/Wt Last Vital Signs Temp 97.7 F 01/28/20 04:00 Pulse 83 01/28/20 04:00 Resp 19 H 01/28/20 04:00 BP 133/90 01/28/20 04:00 Pulse Ox 90 01/28/20 04:00 01/27/20 01/28/20 01/28/20 22:59 06:59 14:59 Intake Total 2265 / 4406.0 990 / 5396.0 Output Total 775 / 1425 1100 / 2525 Balance 1490 / 2981.0 -110 / 2871.0 Weight last 48 hrs Weight 58.513 kg Weight 58.74 kg Physical Exam Const: COMMON NORMALS: no acute distress and patient oriented x3 Resp: COMMON NORMALS: normal respiratory effort OTHER: Mild diffuse expiratory wheezing noted. Cardio: COMMON NORMALS: S2 normal heart sound present RHYTHM: abnormal rhythm irregularly irregular HEART SOUNDS: S2 normal heart sound present OTHER: No lower extremity edema GI: COMMON NORMALS: Normal to inspection, nondistended, normoactive bowel sounds present, Soft to palpation and non-tender PALPATION: Yes Soft to palpation Neuro: COMMON NORMALS: patient oriented x3 and no focal motor deficits Skin: NARRATIVE SKIN EXAM: Small slightly indurated lesion on penis, appears chronic Urinary Catheter Management^: Linder: Cath Placed During This Visit: yes, but has since been removed by the nurse Reason for Continuing Indwelling Catheter: Accurate Measurement of Urinary Output in Critically Ill Patients Date Urinary Catheter Removed: 01/25/20 Time Urinary Catheter Discontinued: 22:20 3-way Urethral CBI: Cath Placed During This Visit: no Reason for Continuing Indwelling Catheter: Accurate Measurement of Urinary Output in Critically Ill Patients Data : 01/28/20 03:10 01/28/20 03:10 Micro: Microbiology 01/25/20 14:40 Blood Culture - Preliminary Blood Gram Negative Rods 01/26/20 16:10 Chlamydia trachomatis (LAKHWINDER) - Final Urine Random Neisseria gonorrhoeae (LAKHWINDER) - Final 01/25/20 16:30 Urine Culture - Preliminary Urine,Clean Catch Gram Negative Rods A&P Assessment and plan (1) Sepsis: Shock has resolved. He was weaned off pressor, currently blood pressures are good. He is afebrile. Leukocytosis is somewhat better at 13.9. Pneumonia left lower lobe. Possibility of urinary tract infection with hematuria, thickened urinary bladder wall, although suspicion for UTI is less. Lactic acid improved. Blood cultures drawn. Continue Levaquin, Zosyn. Concern for possible aspiration given prior laryngeal radiation therapy, as well as his reports he mostly sleeps on the left side, and that appears where his infiltrate is. Atempted to call spouse for an update, but could not reach her. In case of cardiopulmonary arrest he does want attempted resuscitation. also reports per prior discussion he would not want prolonged attempts or prolonged life support. Status: Acute (2) Pneumonia: Community-acquired pneumonia. Follow-up sputum culture. Continue Levaquin, Zosyn. Concern for possible aspiration. Concern for underlying PE given elevated risk, hypoxia, tachycardia, low blood pressure. High risk. VQ ordered, but has to be able to stay still for it. Con electric spot welder CTA if renal function improves sufficiently. Empirically on anticoagulation for now. Noted left lower lobe groundglass opacity. COVID-19 rapid antigen (97% sensitivity) is negative. Possible aspiration given he has been more lethargic recently, sleeps mostly on the left side, and with history of laryngeal radiation therapy. Also with COPD exacerbation with wheezing, rhonchi. Status: Acute (3) Bilateral hydronephrosis: Continue decompression with Linder. This appears to be secondary to bladder outlet obstruction. Linder catheter placed in ER, but subsequently with hematuria. Due to need for anticoagulation appreciate urology recommendations. Priority is to make sure bladder is draining at this time, flashes, and possible CBI will be requested. His hemoglobin is not low, and chronic hematuria is not reported. He does have some thickening of bladder wall, with smoking history, elevated d-dimer, may benefit from additional evaluation after he recovers to exclude other potential underlying problems, perhaps even malignancy as discussed with him and his . Status: Acute (4) Hematuria: Improved today. As above. For now continues empirically on anticoagulation. Monitor hemoglobin. Suspected due to injury from Linder. But will need additional work-up for other possible causes of hematuria and bladder wall thickening after he improves given underlying risk factors for malignancy. Status: Acute Qualifiers: Hematuria type: gross Qualified Code(s): R31.0 - Gross hematuria (5) LASHON (acute kidney injury): With mild improvement with fluid challenge, decompression of hydronephrosis. Hold lisinopril. Monitor EVANGELISTA, renal function. Maintain blood pressures. Appears he takes lisinopril at home, this may be multifactorial secondary hypotension, possibly also secondary to lisinopril, but also may be post renal with noted bilateral hydronephrosis on presentation. Avoid nephrotoxins. Status: Acute (6) Elevated d-dimer: D-dimer elevated beyond 20. At this time not clear what causes. Lower extremity duplex is negative. High suspicion for PE as he is high risk with recent immobility, smoking, male gender, other risk factors. Concern for possibility of either recurrence of malignancy or new malignancy given heavy smoking. For now empirically continue heparin drip. Monitor hemoglobin. We will need additional work-up after he recovers. Status: Acute (7) Paroxysmal atrial fibrillation with RVR: HR 70-80. Continue low dose metoprolol. Treat underlying causes. Given risk factors long-term if can tolerate would benefit from anticoagulation for stroke prevention. Currently empirically on anticoagulation due to concern for possible VTE, discussed long-term he may benefit from anticoagulation due to risk of CVA with underlying hypertension, and his age. Treat underlying conditions as above. Atrial fibrillation appears to be new finding. Once his heart rates improved, consider additional assessment by TTE. Once condition improves, consider additional assessment/stratification for coronary artery disease given risk factors. Status: Acute (8) COPD (chronic obstructive pulmonary disease): Acute exacerbation of COPD, today sounds better, although still having mild wheezing on the left. Will decrease steroid frequency. Taper off as tolerating. Antibiotics as above. Breathing treatments. Sputum culture. Oxygen support. BiPAP as needed. Encourage smoking cessation. Status: Acute (9) Troponin level elevated: He is still not having any chest pain. EKG has not been suggestive of acute IA, and so suspect that is more likely demand ischemia/type II IA, however, NSTEMI is possible still, with troponin rising with significant delta, up to the highest 166. His hematuria has improved. Hemoglobin is with mild decline, however, without profound anemia. We will start him on some aspirin. Monitor for any worsening of bleeding, and aspirin may need to be discontinued. He is not a candidate currently for more invasive risk stratification /management. Continue low-dose beta-vini. Will add statin. A1c is 5.5. Continue to encourage smoking cessation. Monitor blood pressures and optimize control long- term. In addition he may need additional assessment with perhaps a stress test once he becomes more stable for underlying coronary disease which may be contributing to the current picture. Continue to manage underlying conditions as above, maintain blood pressure. Assess TTE. Status: Acute (10) Hypertension: Lisinopril on hold due to hypotension, acute kidney injury. Metoprolol. Status: Acute (11) Rash of genital area: For now we will add nystatin cream. Cannot exclude possibility of HSV, although no blisters are noted. No rash noted elsewhere. No sign of Rashid's gangrene. Maintain Linder catheter in place. Reassess. Antibiotics as above. reports he has recently funcionally declined. Has had urinary and fecal incontinence, perhaps after the fall. Possible cellulitis, but does not appear like typical cellullitis. Add linezolid. Check chlamydia/gonorrhea panel. HSV swab. Contact isolation for now. Status: Acute (12) Smoker unmotivated to quit: He was instructed previously to no longer smoke given the severity of cancer, with high risk of recurrence per discussion with his , however, states that he picked up smoking again about 6 months ago. He states smokes currently about 1.5 packs/day. Encourage cessation given detrimental effect of smoking to multiple organ systems, as well as problems noted here. Provide nicotine supplements if having withdrawal. Status: Acute (13) Acute anemia: Hemoglobin did decrease from initial 13.4, down to 10.5, however, was quite hemoconcentrated on presentation, dehydrated. Did receive quite a bit of IV fluid. Does have acute blood loss secondary to hematuria. Will check Hemoccult as well. Hematuria is better today, however, is still needing therapeutic anticoagulation empirically due to high concern for PE until he is able to be closer assessed for it. Also started on aspirin due to possible non-STEMI. We will monitor hemoglobin. Transfuse if decreased below 8-9 given cannot rule out that he does not have coronary ischemia, if develops profuse bleeding, may need to discontinue anticoagulation, aspirin or both. Status: Acute (14) Systolic heart failure: Appears chronic and present on admission. Currently compensated Status: Acute (15) Bacteremia: With gram-negative martin. Appears to be growing same pathogen in urine. Status: Acute Additional A&P Information Non-ST elevation IA, most likely of type II secondary to A. fib and pneumonia. Present on admission. Acute hypoxic respiratory failure, present on admission. Secondary to pneu monia. Lactic acidosis Leukocytosis History of laryngeal cancer, status post radiation and chemotherapy, did not have surgery from what I can see from his follow-up with Dr. Tyson (although seems to think he may have). Recent functional decline: reports that for the past 6 weeks or so he has been mostly sleeping during the day, he has pretty much not been ambulatory. She does report that he had a fall and has been complaining of leg pain. We will go ahead and image bilateral hips given his fall and immobility. She does report bowel and bladder incontinence. Will assess also CT lumbar/sacral spine to exclude acute cord compression. Noncontrast due to acute kidney injury. Early decub sores noted on bony promences on back, elbow and a few other locations. Reposition frequently. Improve nutrition once he is able to tolerate diet reliably. PLAN: Continue ICU monitoring for now due to COPD exacerbation and medication changes. I think patient will benefit more from beta-vini than Cardizem despite having underlying significant COPD. Will transition to bisoprolol. Add Advair and continue with DuoNeb. Continue current antibiotics and add ceftriaxone for now until urine and blood culture is back. Start Flomax and if blood pressure permits uptitrate to twice daily. Consider adding back steroids but continue close monitoring. Physical and Occupational Therapy. Attestations Medical Necessity Statement*: Patient with bacteremia, atrial fibrillation with rapid ventricular response, cardiomyopathy and acute kidney injury requires close ICU monitoring and treatment given multiple medication changes and high risk for deterioration. Critical Care Time: Critical Care Time (min): 35 Coding Level of Care Code Acute [employer]pl[employer] for Rosalio Fwprim[employer] Diagnoses Sepsis A41.9 Pneumonia J18.9 Bilateral hydronephrosis N13.30 Hematuria R31.0 Hematuria type: gross LASHON (acute kidney injury) N17.9 Elevated d-dimer R79.89 Paroxysmal atrial fibrillation with RVR I48.0 COPD (chronic obstructive pulmonary disease) J44.9 Troponin level elevated R79.89 Hypertension I10 Rash of genital area R21 Smoker unmotivated to quit F17.200 Acute anemia D64.9 Systolic heart failure I50.20 Bacteremia R78.81
[2020-01-28] MEDS: apixaban 5 mg Tablet 2.5 MG PO ×2 (09:13→18:24)
[2020-01-28] MEDS: tamsulosin 0.4 mg Capsule PO (09:13)
[2020-01-28] MEDS: aspirin 81 mg EC Tablet PO (09:14)
[2020-01-28] MEDS: potassium chloride ER 10 mEq Tablet 40 MEQ PO (09:15)
[2020-01-28] MEDS: cefTRIAXone 1,000 MG in sodium chloride 0.9% (plus) 50 ML 100 MG IV (09:16)
[2020-01-28] MEDS: pantoprazole 40 mg SDV IVP (09:16)
--- NOTE | 2020-01-28 12:26 | PM.PN ---
Subjective Subjective: Interval history: Urology follow-up Have been following every day. His urine has been pink until today. Last night apparently they irrigated the catheter aggressively and got a lot of clot out and since then his urine has remained primarily yellow. Catheter seems to be draining well. He is much more lucid. Still some inappropriate answers to questions. It appears that he is moving [facility] post hospital stay. Because of the evidence of chronic urinary retention likely responsible for the gross hematuria after catheter placement as well as bilateral hydronephrosis I think it is reasonable to leave the catheter in at discharge and do follow-up completion of evaluation in my office after a couple weeks of bladder drainage. If his urine remains as clear as it is today I would recommend a smaller catheter placed, routine 16 [place] catheter at discharge and I will do a voiding trial and cystoscopy in my office. Vitals/I&O/Wt Last Vital Signs Temp 97.7 F 01/28/20 04:00 Pulse 90 01/28/20 08:00 Resp 14 01/28/20 08:00 BP 167/112 01/28/20 08:00 Pulse Ox 85 L 01/28/20 08:00 01/27/20 01/28/20 01/28/20 22:59 06:59 14:59 Intake Total 2265 / 4406.0 990 / 5396.0 885 / 885 Output Total 775 / 1425 1100 / 2525 Balance 1490 / 2981.0 -110 / 2871.0 885 / 885 Weight last 48 hrs Weight 129 lb Weight 129 lb 8 oz Physical Exam Const: COMMON NORMALS: no acute distress and alert Resp: COMMON NORMALS: negative for normal respiratory effort EFFORT & INSPECTION: No Actively coughing Neuro: SENSORIUM/ORIENTATION: Yes alert Psych: COMMON NORMALS: cooperative ATTITUDE: Yes calm and Yes engaged Urinary Catheter Management^: Linder: Cath Placed During This Visit: yes, but has since been removed by the nurse Reason for Continuing Indwelling Catheter: Accurate Measurement of Urinary Output in Critically Ill Patients Date Urinary Catheter Removed: 01/25/20 Time Urinary Catheter Discontinued: 22:20 3-way Urethral CBI: Cath Placed During This Visit: no Reason for Continuing Indwelling Catheter: Accurate Measurement of Urinary Output in Critically Ill Patients Data : 01/28/20 03:10 01/28/20 03:10 Micro: Microbiology 01/25/20 16:30 Urine Culture - Final Urine,Clean Catch Proteus mirabilis esbl 01/25/20 14:40 Blood Culture - Preliminary Blood Gram Negative Rods 01/26/20 16:10 Chlamydia trachomatis (LAKHWINDER) - Final Urine Random Neisseria gonorrhoeae (LAKHWINDER) - Final A&P Assessment and plan (1) Hematuria: Likely secondary to bladder distention. Will need a cystoscopy on follow-up after recovers from his acute illness. Status: Acute Qualifiers: Hematuria type: gross Qualified Code(s): R31.0 - Gross hematuria (2) Acute urinary retention: Actually appears to be chronic based on bilateral hydronephrosis and bladder wall thickening. Kidney function has dramatically improved since catheter placement. Creatinine 1.3 today. At this point he is not a reliable candidate for SCIC. We will recommend initiation of TAMSULOSIN 0.4 mg p.o. nightly to be followed by voiding trial in my office on follow-up Status: Acute (3) Bilateral hydronephrosis: Secondary to bladder outlet obstruction. 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
--- NOTE | 2020-01-28 13:39 | PC.NURSE ---
took over for primary nurse, gave imipinem/cilastatin upon start of shift.
--- NOTE | 2020-01-28 19:09 | PC.NURSE ---
Pt continues to refuse to roll over. when staff rolls him to his right side he immediatly rolls back to his left side.
[2020-01-28] MEDS: atorvastatin 40 mg Tablet PO (20:02)
--- NOTE | 2020-01-28 20:07 | PC.NURSE ---
Patient stated to RN Don't you ever quit? when RN attempted to put oxygen back on. Oxygen placed back on patient, but patient frequently refuses to wear it correctly. Patient also refusing to turn in bed. Vitals stable.
--- NOTE | 2020-01-28 21:30 | PC.NURSE ---
Patient pulled right AC IV out, cleaned up despite patient refusing. Patient work of breathing increased, exp wheezes, accessory muscles utilized. Oxygen probe changed, patient satting mid 70%'s, gave patient ultimatum to either wear nasal cannula or bipap mask, as he is still a full code. Patient reluctantly agreed to wear nasal cannula.
[2020-01-29] VITALS (26 sets, daily range): BP systolic 99–149; BP diastolic 62–106; PULSE 71–110; RESP 15–28; TEMP 35.8–36.9; O2SAT 87–97
--- NOTE | 2020-01-29 00:30 | PC.NURSE ---
Patient refusing to have temperature taken, refuses oxygen per nasal cannula, O2 sat% mid-80's on room air.
[2020-01-29] MEDS: linezolid premix 600 MG/300 ML PREMIX 300 MG IV (01:36)
[2020-01-29 04:45] LABS: Basophils % 0.1 %; Hematocrit 34.9 % (42.0-52.0); Hemoglobin 10.8 g/dL (11.7-16.6); Lymphocytes # 0.7 10^3/uL (0.8-4.8); Mean Corpuscular HGB Conc 30.9 g/dL (30.0-36.0); Mean Corpuscular Hemoglobin 28.8 pg (28.0-34.0); Mean Corpuscular Volume 93.1 fL (80-94); Monocytes # 0.8 10^3/uL (0.2-0.9); Monocytes % 6.5 %; Neutrophils # 10.19 10^3/uL (1.8-7.7); Neutrophils % 86.7 %; Nucleated Red Blood Cells % 0 %; Platelet Count 254 10^3/cmm (130-400); Red Blood Count 3.75 10^6/uL (4.1-5.3); White Blood Count 11.7 10^3/uL (4.0-10.0)
[2020-01-29 05:04] LABS: Alanine Aminotransferase 20 U/L (0-41); Albumin Level 2.3 g/dL (3.5-5.2); Alkaline Phosphatase 73 IU/L (40-130); Anion Gap 10.2 (5-19); Aspartate Amino Transferase 27 U/L (0-40); Blood Urea Nitrogen 16 mg/dL (8-23); Calcium 7.3 mg/dL (8.5-10.5); Carbon Dioxide 25 mmol/L (22-29); Chloride 105 mmol/L (98-107); Globulin 2.8 g/dL (1.3-4.6); Glucose 112 mg/dL (65-115); Osmolality Calculated 281 mOsm/kg (285-295); Potassium 3.2 mmol/L (3.5-5.1); Sodium 137 mmol/L (136-145); Total Bilirubin 0.4 mg/dL (0.15-1.2); Total Protein 5.1 g/dL (6.6-8.7)
[2020-01-29] MEDS: sodium chloride 0.9% 1,000 ML 150 ML IV ×4 (05:08→16:04)
--- NOTE | 2020-01-29 06:13 | PC.NURSE ---
Patient continues to pull IV's out, refuse turns, take gown off, and take EKG leads off. Refuses to wear oxygen or wear SPO2 sensor. Education attempted but futile with patient's attitude. Patient continues to yell at staff, saying he's NOT at the hospital! .
--- NOTE | 2020-01-29 08:19 | PC.NURSE ---
Let Dr Vyas know that pt lungs are coarse today, he is more confused and refuses to wear his 02, eat or roll off his left side. No orders received at this time.
--- NOTE | 2020-01-29 08:25 | P.PN_ITS ---
Subjective Subjective: Interval history: Patient denies shortness of breath or chest pain. Denies abdominal pain. Always removes his oxygen and always tries to lay on his left side despite frequent repositioning by RNs. He is saturating in the low 90s on room air this morning. White blood cell count improves and down to 11.7. His creatinine also improved. He is upset that his cannot visit him. His urinary culture came back with ESBL Proteus mirabilis but blood culture 1 out of 2 also grows Proteus but not ESBL and only resistant to tetracycline. Vitals/I&O/Wt Last Vital Signs Temp 98.5 F 01/29/20 04:00 Pulse 100 01/29/20 05:00 Resp 15 01/29/20 05:00 BP 142/90 01/29/20 05:00 Pulse Ox 90 01/29/20 03:00 01/28/20 01/29/20 01/29/20 22:59 06:59 14:59 Intake Total 1470 / 2755 572.5 / 3327.5 Output Total 400 / 825 2100 / 2925 Balance 1070 / 1930 -1527.5 / 402.5 Weight last 48 hrs Weight 58.513 kg Weight 58.513 kg Physical Exam Const: COMMON NORMALS: no acute distress and patient oriented x3 Resp: COMMON NORMALS: normal respiratory effort OTHER: Very faint mostly upper zones expiratory wheezing noted but better compared to yesterday. Cardio: COMMON NORMALS: S2 normal heart sound present RHYTHM: abnormal rhythm irregularly irregular HEART SOUNDS: S2 normal heart sound present OTHER: No lower extremity edema GI: COMMON NORMALS: Normal to inspection, nondistended, normoactive bowel sounds present, Soft to palpation and non-tender PALPATION: Yes Soft to palpation Neuro: COMMON NORMALS: patient oriented x3 and no focal motor deficits Skin: NARRATIVE SKIN EXAM: Small slightly indurated lesion on penis, appears chronic Urinary Catheter Management^: Linder: Cath Placed During This Visit: yes, but has since been removed by the nurse Reason for Continuing Indwelling Catheter: Accurate Measurement of Urinary Output in Critically Ill Patients Date Urinary Catheter Removed: 01/25/20 Time Urinary Catheter Discontinued: 22:20 3-way Urethral CBI: Cath Placed During This Visit: no Reason for Continuing Indwelling Catheter: Accurate Measurement of Urinary Output in Critically Ill Patients Data : 01/29/20 04:25 01/29/20 04:25 Micro: Microbiology 01/25/20 14:40 Blood Culture - Preliminary Blood Proteus mirabilis 01/25/20 16:30 Urine Culture - Final Urine,Clean Catch Proteus mirabilis esbl A&P Assessment and plan (1) Sepsis: Shock has resolved. He was weaned off pressor, currently blood pressures are good. He is afebrile. Leukocytosis is somewhat better at 13.9. Pneumonia left lower lobe. Possibility of urinary tract infection with hematuria, thickened urinary bladder wall, although suspicion for UTI is less. Lactic acid improved. Blood cultures drawn. Continue Levaquin, Zosyn. Concern for possible aspiration given prior laryngeal radiation therapy, as well as his reports he mostly sleeps on the left side, and that appears where his infiltrate is. Atempted to call spouse for an update, but could not reach her. In case of cardiopulmonary arrest he does want attempted resuscitation. also reports per prior discussion he would not want prolonged attempts or prolonged life support. Status: Acute (2) Pneumonia: Community-acquired pneumonia. Follow-up sputum culture. Continue Levaquin, Zosyn. Concern for possible as piration. Concern for underlying PE given elevated risk, hypoxia, tachycardia, low blood pressure. High risk. VQ ordered, but has to be able to stay still for it. Consider CTA if renal function improves sufficiently. Empirically on anticoagulation for now. Noted left lower lobe groundglass opacity. COVID-19 rapid antigen (97% sensitivity) is negative. Possible aspiration given he has been more lethargic recently, sleeps mostly on the left side, and with history of laryngeal radiation therapy. Also with COPD exacerbation with wheezing, rhonchi. Status: Acute (3) Bilateral hydronephrosis: Continue decompression with Linder. This appears to be secondary to bladder outlet obstruction. Linder catheter placed in ER, but subsequently with hematuria. Due to need for anticoagulation appreciate urology recommendations. Priority is to make sure bladder is draining at this time, flashes, and possible CBI will be requested. His hemoglobin is not low, and chronic hematuria is not reported. He does have some thickening of bladder wall, with smoking history, elevated d-dimer, may benefit from additional evaluation after he recovers to exclude other potential underlying problems, perhaps even malignancy as discussed with him and his . Status: Acute (4) Hematuria: Improved today. As above. For now continues empirically on anticoagulation. Monitor hemoglobin. Suspected due to injury from Linder. But will need additional work-up for other possible causes of hematuria and bladder wall thickening after he improves given underlying risk factors for malignancy. Status: Acute Qualifiers: Hematuria type: gross Qualified Code(s): R31.0 - Gross hematuria (5) LASHON (acute kidney injury): With mild improvement with fluid challenge, decompression of hydronephrosis. Hold lisinopril. Monitor EVANGELISTA, renal function. Maintain blood pressures. Appears he takes lisinopril at home, this may be multifactorial secondary hypotension, possibly also secondary to lisinopril, but also may be post renal with noted bilateral hydronephrosis on presentation. Avoid nephrotoxins. Status: Acute (6) Elevated d-dimer: D-dimer elevated beyond 20. At this time not clear what causes. Lower extremity duplex is negative. High suspicion for PE as he is high risk with recent immobility, smoking, male gender, other risk factors. Concern for possibility of either recurrence of malignancy or new malignancy given heavy smoking. For now empirically continue heparin drip. Monitor hemoglobin. We will need additional work-up after he recovers. Status: Acute (7) Paroxysmal atrial fibrillation with RVR: HR 70-80. Continue low dose metoprolol. Treat underlying causes. Given risk factors long-term if can tolerate would benefit from anticoagulation for stroke prevention. Currently empirically on anticoagulation due to concern for possible VTE, discussed long-term he may benefit from anticoagulation due to risk of CVA with underlying hypertension, and his age. Treat underlying conditions as above. Atrial fibrillation appears to be new finding. Once his heart rates improved, consider additional assessment by TTE. Once condition improves, consider additional assessment/stratification for coronary artery disease given risk factors. Status: Acute (8) COPD (chronic obstructive pulmonary disease): Acute exacerbation of COPD, today sounds better, although still having mild wheezing on the left. Will decrease steroid frequency. Taper off as tolerating. Antibiotics as above. Breathing treatments. Sputum culture. Oxygen support. BiPAP as needed. Encourage smoking cessation. Status: Acute (9) Troponin level elevated: He is still not having any chest pain. EKG has not been suggestive of acute UT, and so suspect that is more likely demand ischemia/type II UT, however, NSTEMI is possible still, with troponin rising with significant delta, up to the highest 166. His hematuria has improved. Hemoglobin is with mild decline, however, without profound anemia. We will start him on some aspirin. Monitor for any worsening of bleeding, and aspirin may need to be discontinued. He is not a candidate currently for more invasive risk stratification/management. Continue low-dose beta-vini. Will add statin. A1c is 5.5. Continue to encourage smoking cessation. Monitor blood pressures and optimize control long- term. In addition he may need additional assessment with perhaps a stress test once he becomes more stable for underlying coronary disease which may be contributing to the current picture. Continue to manage underlying conditions as above, maintain blood pressure. Assess TTE. Status: Acute (10) Hypertension: Lisinopril on hold due to hypotension, acute kidney injury. Metoprolol. Status: Acute (11) Rash of genital area: For now we will add nystatin cream. Cannot exclude possibility of HSV, although no blisters are noted. No rash noted elsewhere. No sign of Rashid's gangrene. Maintain Linder catheter in place. Reassess. Antibiotics as above. reports he has recently funcionally declined. Has had urinary and fecal incontinence, perhaps after the fall. Possible cellulitis, but does not appear like typical cellullitis. Add linezolid. Check chlamydia/gonorrhea panel. HSV swab. Contact isolation for now. Status: Acute (12) Smoker unmotivated to quit: He was instructed previously to no longer smoke given the severity of cancer, with high risk of recurrence per discussion with his , however, states that he picked up smoking again about 6 months ago. He states smokes currently about 1.5 packs/day. Encourage cessation given detrimental effect of smoking to multiple organ systems, as well as problems noted here. Provide nicotine supplements if having withdrawal. Status: Acute (13) Acute anemia: Hemoglobin did decrease from initial 13.4, down to 10.5, however, was quite hemoconcentrated on presentation, dehydrated. Did receive quite a bit of IV fluid. Does have acute blood loss secondary to hematuria. Will check Hemoccult as well. Hematuria is better today, however, is still needing therapeutic anticoagulation empirically due to high concern for PE until he is able to be closer assessed for it. Also started on aspirin due to possible non-STEMI. We will monitor hemoglobin. Transfuse if decreased below 8-9 given cannot rule out that he does not have coronary ischemia, if develops profuse bleeding, may need to discontinue anticoagulation, aspirin or both. Status: Acute (14) Systolic heart failure: Appears chronic and present on admission. Currently compensated Status: Acute (15) Bacteremia: With gram-negative martin. Appears to be growing same pathogen in urine. Status: Acute Additional A&P Information Non-ST elevation UT, most likely of type II secondary to A. fib and pneumonia. Present on admission. Acute hypoxic respiratory failure, present on admission. Secondary to pneumonia. Lactic acidosis Leukocytosis History of laryngeal cancer, status post radiation and chemotherapy, did not have surgery from what I can see from his follow-up with Dr. Tyson (although seems to think he may have). Recent functional decline: reports that for the past 6 weeks or so he has been mostly sleeping during the day, he has pretty much not been ambulatory. She does report that he had a fall and has been complaining of leg pain. We will go ahead and image bilateral hips given his fall and immobility. She does report bowel and bladder incontinence. Will assess also CT lumbar/sacral spine to exclude acute cord compression. Noncontrast due to acute kidney injury. Early decub sores noted on bony promences on back, elbow and a few other locations. Reposition frequently. Improve nutrition once he is able to tolerate diet reliably. PLAN: Continue respiratory treatments. Increase bisoprolol to 10 mg daily and restart lisinopril. Narrow down antibiotics to Primaxin. Will request PICC line placement with plan to continue patient on ertapenem for at least 12 more days post discharge Outpatient antibiotic administration will need to be arranged. Placement to nursing facility to complete antibiotics would be preferable. Continue with Linder catheter care until patient follows up with Dr. Sellers on outpatient basis. Attestations Medical Necessity Statement*: Patient with UTI and bacteremia requires close inpatient monitoring and treatment till appropriate outpatient arrangements are made and patient deemed safe to be discharged. Time Spent in Patient Care: Greater than 35 minutes Coding Level of Care Code Acute Toolroom Clerk for [facility] Fwd Diagnoses Sepsis A41.9 Pneumonia J18.9 Bilateral hydronephrosis N13.30 Hematuria R31.0 Hematuria type: gross LASHON (acute kidney injury) N17.9 Elevated d-dimer R79.89 Paroxysmal atrial fibrillation with RVR I48.0 COPD (chronic obstructive pulmonary disease) J44.9 Troponin level elevated R79.89 Hypertension I10 Rash of genital area R21 Smoker unmotivated to quit F17.200 Acute anemia D64.9 Systolic heart failure I50.20 Bacteremia R78.81
[2020-01-29] MEDS: ipratropium-albuterol 3 mL Neb INHALATION ×3 (08:42→21:35)
[2020-01-29] MEDS: aspirin 81 mg EC Tablet PO (10:16)
[2020-01-29] MEDS: tamsulosin 0.4 mg Capsule PO (10:17)
[2020-01-29] MEDS: potassium chloride ER 10 mEq Tablet 40 MEQ PO ×2 (10:23→17:55)
[2020-01-29] MEDS: pantoprazole DR 40 mg Tablet PO (10:24)
[2020-01-29] MEDS: apixaban 5 mg Tablet 2.5 MG PO ×2 (10:26→17:54)
--- NOTE | 2020-01-29 11:39 | PC.OT ---
OT note: Pt having in room procedure, unable to participate in OT at this time. Will attempt again as able.
--- NOTE | 2020-01-29 13:48 | PC.NURSE ---
Patient refused to cooperate with turning. Patient will not lay on right side when prompted to turn, despite several attempts. Pillow placed to discourage turning back over, patient pulls pillow out and returns to left side.
--- NOTE | 2020-01-29 14:03 | PC.NURSE ---
pt refuses to keep o2 on or lay on a different side as his left.
--- NOTE | 2020-01-29 14:50 | PC.NURSE ---
Call put in to Dr. Vyas regarding pt condition. He is using his accessory muscles to breath, very confused pulling tubes and his IV out, refusing to wear 02. staff requested CXR, blood gases, possible Precedex with soft restraints, use of Bipap. No new orders at this time.
--- NOTE | 2020-01-29 14:57 | PC.NURSE ---
PICC nurse unable to get Picc in. roofing laborer called to see if Edgar Phillips RN could attempt. No answer in rags laborer.
--- NOTE | 2020-01-29 17:39 | PC.NURSE ---
Addendum entered by Char White RN 01/29/20 18:03: verbal instruction also given at bedside to stop iv fluids Original Note: Dr Vyas at bedside to speak with about patients wishes and code status. patient having labored abd breathing and lung sounds are course and audible at door way Patients discussed with Dr Vyas that patient and had spoke about this situation awhile back before patient became hospitalized wants patient wishes to be know patient wishes to not to be intubated or on any life support verbal instructions from Dr. Vyas to give 40mg ivp lasix x1 now and 40meq of po potassium x1 now
[2020-01-29] MEDS: FUROsemide 10 mg/mL SDV 4mL 40 MG IVP (17:54)
[2020-01-29] MEDS: lisinopril 10 mg Tablet PO (17:55)
[2020-01-29] MEDS: morphine 4 mg/mL SDV 1 mL 2 MG IVP (20:17)
--- NOTE | 2020-01-29 20:44 | PC.NURSE ---
Patient very restless. Refusing all care will not allow us to place leads on for telemetry. Respiratory therapy and this nurse have tried multiple times to encourage patient to wear BiPap. Patient refusing Bipap therapy and asking for cigarettes. Attempts to reorient patient have not been successful. Patient continues to want to get up and go smoke. Patient would not allow this nurse to take vital signs either at this time. Will continue to monitor and encourage patient to be compliant with care. Patient now on Oxygen with cannula in his mouth. Patient continues to refuse all care. Will continue to monitor and assist as needed and allowed by patient.
[2020-01-29] MEDS: ziprasidone 20 mg/mL SDV IM (21:29)
--- NOTE | 2020-01-29 21:31 | PC.NURSE ---
Patient extremely confused. Removed bipap, telemetry, iv, attempting to pull out shirley and climb out of bed. Re-direction not having any affect. Informed Dr Medina of patient behavior and doctor placed order.
[2020-01-29] MEDS: atorvastatin 40 mg Tablet PO (22:09)
[2020-01-30] VITALS (14 sets, daily range): BP systolic 87–134; BP diastolic 47–82; PULSE 56–95; RESP 14–20; TEMP 36.1–36.8; O2SAT 74–99; BMI 20.8
[2020-01-30] MEDS: ipratropium-albuterol 3 mL Neb INHALATION ×3 (02:40→15:54)
[2020-01-30 05:52] LABS: Basophils % 0.1 %; Eosinophils % 0.2 %; Hematocrit 33.7 % (42.0-52.0); Hemoglobin 10.8 g/dL (11.7-16.6); Lymphocytes # 0.6 10^3/uL (0.8-4.8); Lymphocytes % 4.9 %; Mean Corpuscular Hemoglobin 29.8 pg (28.0-34.0); Mean Corpuscular Volume 92.8 fL (80-94); Monocytes # 0.7 10^3/uL (0.2-0.9); Monocytes % 5.4 %; Neutrophils # 11.13 10^3/uL (1.8-7.7); Neutrophils % 88.8 %; Nucleated Red Blood Cells % 0 %; Platelet Count 242 10^3/cmm (130-400); Red Blood Count 3.63 10^6/uL (4.1-5.3); White Blood Count 12.5 10^3/uL (4.0-10.0)
[2020-01-30 08:06] LABS: Alanine Aminotransferase 25 U/L (0-41); Albumin Level 2.7 g/dL (3.5-5.2); Alkaline Phosphatase 74 IU/L (40-130); Blood Urea Nitrogen 19 mg/dL (8-23); Calcium 7.4 mg/dL (8.5-10.5); Carbon Dioxide 28 mmol/L (22-29); Chloride 104 mmol/L (98-107); Globulin 2.8 g/dL (1.3-4.6); Glucose 84 mg/dL (65-115); Osmolality Calculated 286 mOsm/kg (285-295); Sodium 140 mmol/L (136-145); Total Bilirubin 0.5 mg/dL (0.15-1.2); Total Protein 5.5 g/dL (6.6-8.7)
[2020-01-30 08:12] LABS: Anion Gap 12.2 (5-19); Aspartate Amino Transferase 30 U/L (0-40); Potassium 4.2 mmol/L (3.5-5.1)
--- NOTE | 2020-01-30 08:31 | P.PN_ITS ---
Subjective Subjective: Interval history: I have discussed with patient's yesterday at bedside. requested CODE STATUS to be switched to allow natural . She reported that they had discussion previously and this was patient's wish. He has been hypoxic last evening and fluids were discontinued and patient was given 1 dose IV Lasix. He was placed on BiPAP and this morning appears to be doing well. He is still somnolent this morning but saturates 100% on 30% FiO2. Vitals/I&O/Wt Last Vital Signs Temp 98.2 F 01/30/20 04:00 Pulse 75 01/30/20 04:00 Resp 20 H 01/30/20 04:00 BP 99/74 01/30/20 04:00 Pulse Ox 97 01/30/20 04:00 01/29/20 01/30/20 01/30/20 22:59 06:59 14:59 Intake Total 262.5 / 1582.5 Balance 262.5 / 782.5 Weight last 48 hrs Weight 58.513 kg Weight 58.513 kg Physical Exam Const: COMMON NORMALS: no acute distress Resp: COMMON NORMALS: normal respiratory effort OTHER: Clear throughout. Cardio: COMMON NORMALS: S2 normal heart sound present RHYTHM: abnormal rhythm irregularly irregular HEART SOUNDS: S2 normal heart sound present OTHER: No lower extremity edema GI: COMMON NORMALS: Normal to inspection, nondistended, normoactive bowel sounds present, Soft to palpation and non-tender PALPATION: Yes Soft to palpation Neuro: COMMON NORMALS: no focal motor deficits (On gross examination.) Urinary Catheter Management^: Linder: Cath Placed During This Visit: yes, but has since been removed by the nurse Reason for Continuing Indwelling Catheter: Accurate Measurement of Urinary Outpu t in Critically Ill Patients Date Urinary Catheter Removed: 01/25/20 Time Urinary Catheter Discontinued: 22:20 3-way Urethral CBI: Cath Placed During This Visit: no Reason for Continuing Indwelling Catheter: Accurate Measurement of Urinary Output in Critically Ill Patients Data : 01/30/20 05:35 01/30/20 07:24 A&P Assessment and plan (1) Sepsis: Shock has resolved. He was weaned off pressor, currently blood pressures are good. He is afebrile. Leukocytosis is somewhat better at 13.9. Pneumonia left lower lobe. Possibility of urinary tract infection with hematuria, thickened urinary bladder wall, although suspicion for UTI is less. Lactic acid improved. Blood cultures drawn. Continue Levaquin, Zosyn. Concern for possible aspiration given prior laryngeal radiation therapy, as well as his reports he mostly sleeps on the left side, and that appears where his infiltrate is. Atempted to call spouse for an update, but could not reach her. In case of cardiopulmonary arrest he does want attempted resuscitation. also reports per prior discussion he would not want prolonged attempts or prolonged life support. Status: Acute (2) Pneumonia: Community-acquired pneumonia. Follow-up sputum culture. Continue Levaquin, Zosyn. Concern for possible aspiration. Concern for underlying PE given elevated risk, hypoxia, tachycardia, low blood pressure. High risk. VQ ordered, but has to be able to stay still for it. Consider CTA if renal function improves sufficiently. Empirically on anticoagulation for now. Noted left lower lobe groundglass opacity. COVID-19 rapid antigen (97% sensitivity) is negative. Possible aspiration given he has been more lethargic recently, sleeps mostly on the left side, and with history of laryngeal radiation therapy. Also with COPD exacerbation with wheezing, rhonchi. Status: Acute (3) Bilateral hydronephrosis: Continue decompression with Linder. This appears to be secondary to bladder outlet obstruction. Linder catheter placed in ER, but subsequently with hematuria. Due to need for anticoagulation appreciate urology recommendations. Priority is to make sure bladder is draining at this time, flashes, and possible CBI will be requested. His hemoglobin is not low, and chronic hematuria is not reported. He does have some thickening of bladder wall, with smoking history, elevated d-dimer, may benefit from additional evaluation after he recovers to exclude other potential underlying problems, perhaps even malignancy as discussed with him and his . Status: Acute (4) Hematuria: Improved today. As above. For now continues empirically on anticoagulation. Monitor hemoglobin. Suspected due to injury from Linder. But will need additional work-up for other possible causes of hematuria and bladder wall thickening after he improves given underlying risk factors for malignancy. Status: Acute Qualifiers: Hematuria type: gross Qualified Code(s): R31.0 - Gross hematuria (5) LASHON (acute kidney injury): With mild improvement with fluid challenge, decompression of hydronephrosis. Hold lisinopril. Monitor EVANGELISTA, renal function. Maintain blood pressures. Appears he takes lisinopril at home, this may be multifactorial secondary hypotension, possibly also secondary to lisinopril, but also may be post renal with noted bilateral hydronephrosis on presentation. Avoid nephrotoxins. Status: Acute (6) Elevated d-dimer: D-dimer elevated beyond 20. At this time not clear what causes. Lower extremity duplex is negative. High suspicion for PE as he is high risk with recent immobility, smoking, male gender, other risk factors. Concern for possibility of either recurrence of malignancy or new malignancy given heavy smoking. For now empirically continue heparin drip. Monitor hemoglobin. We will need additional work-up after he recovers. Status: Acute (7) Paroxysmal atrial fibrillation with RVR: HR 70-80. Continue low dose metoprolol. Treat underlying causes. Given risk factors long-term if can tolerate would benefit from anticoagulation for stroke prevention. Currently empirically on anticoagulation due to concern for possible VTE, discussed long-term he may benefit from anticoagulation due to risk of CVA with underlying hypertension, and his age. Treat underlying conditions as above. Atrial fibrillation appears to be new finding. Once his heart rates improved, consider additional assessment by TTE. Once condition improves, consider additional assessment/stratification for coronary artery disease given risk factors. Status: Acute (8) COPD (chronic obstructive pulmonary disease): Acute exacerbation of COPD, today sounds better, although still having mild wheezing on the left. Will decrease steroid frequency. Taper off as tolerating. Antibiotics as above. Breathing treatments. Sputum culture. Oxygen support. BiPAP as needed. Encourage smoking cessation. Status: Acute (9) Troponin level elevated: He is still not having any chest pain. EKG has not been suggestive of acute W[place], and so suspect that is more likely demand ischemia/type II [place], however, NSTEMI is possible still, with troponin rising with significant delta, up to the highest 166. His hematuria has improved. Hemoglobin is with mild decline, however, without profound anemia. We will start him on some aspirin. Monitor for any worsening of bleeding, and aspirin may need to be discontinued. He is not a candidate currently for more invasive risk stratification/management. Continue low-dose beta-vini. Will add statin. A1c is 5.5. Continue to encourage smoking cessation. Monitor blood pressures and optimize control long- term. In addition he may need additional assessment with perhaps a stress test once he becomes more stable for underlying coronary disease which may be contributing to the current picture. Continue to manage underlying conditions as above, maintain blood pressure. Assess TTE. Status: Acute (10) Hypertension: Lisinopril on hold due to hypotension, acute kidney injury. Metoprolol. Status: Acute (11) Rash of genital area: For now we will add nystatin cream. Cannot exclude possibility of HSV, although no blisters are noted. No rash noted elsewhere. No sign of Rashid's gangrene. Maintain Linder catheter in place. Reassess. Antibiotics as above. reports he has recently funcionally declined. Has had urinary and fecal incontinence, perhaps after the fall. Possible cellulitis, but does not appear like typical cellullitis. Add linezolid. Check chlamydia/gonorrhea panel. HSV swab. Contact isolation for now. Status: Acute (12) Smoker unmotivated to quit: He was instructed previously to no longer smoke given the severity of cancer, with high risk of recurrence per discussion with his , however, states that he picked up smoking again about 6 months ago. He states smokes currently about 1.5 packs/day. Encourage cessation given detrimental effect of smoking to multiple organ systems, as well as problems noted here. Provide nicotine supplements if having withdrawal. Status: Acute (13) Acute anemia: Hemoglobin did decrease from initial 13.4, down to 10.5, however, was quite hemoconcentrated on presentation, dehydrated. Did receive quite a bit of IV fluid. Does have acute blood loss secondary to hematuria. Will check Hemoccult as well. Hematuria is better today, however, is still needing therapeutic anticoagulation empirically due to high concern for PE until he is able to be closer assessed for it. Also started on aspirin due to possible non-STEMI. We will monitor hemoglobin. Transfuse if decreased below 8-9 given cannot rule out that he does not have coronary ischemia, if develops profuse bleeding, may need to discontinue anticoagulation, aspirin or both. Status: Acute (14) Systolic heart failure: Appears chronic and present on admission. Currently compensated Status: Acute (15) Bacteremia: Due to Proteus mirabilis Status: Acute Additional A&P Information Non-ST elevation W[place], most likely of type II secondary to A. fib and pneumonia. Present on admission. Acute hypoxic respiratory failure, present on admission. Secondary to pneumonia. Lactic acidosis Leukocytosis History of laryngeal cancer, status post radiation and chemotherapy, did not have surgery from what I can see from his follow-up with Dr. Tyson (although seems to think he may have). Recent functional decline: reports that for the past 6 weeks or so he has been mostly sleeping during the day, he has pretty much not been ambulatory. She does report that he had a fall and has been complaining of leg pain. We will go ahead and image bilateral hips given his fall and immobility. She does report bowel and bladder incontinence. Will assess also CT lumbar/sacral spine to exclude acute cord compression. Noncontrast due to acute kidney injury. Early decub sores noted on bony promences on back, elbow and a few other locations. Reposition frequently. Improve nutrition once he is able to tolerate diet reliably. Urinary tract infection. With ESBL Proteus mirabilis. Likely present on admission. PLAN: Discussed with who wants to continue with IV antibiotics at home and she is willing to learn how to administer. Patient will require ertapenem 1 g daily for approximately 10 days. Will reevaluate patient shortly once BiPAP is removed. Monitor white blood cell count and if continues to improve consider adding linezolid. As pneumonia still could play a role. Continue with Linder catheter care until patient follows up with Dr. Sellers on outpatient basis. Attestations Medical Necessity Statement*: Patient with significant infectious process requires close inpatient monitoring and treatment until deemed safe for discharge. Time Spent in Patient Care: 16 - 35 minutes Coding Level of Care Code Acute Supervisor Production Managing for [facility] Fwd Diagnoses Sepsis A41.9 Pneumonia J18.9 Bilateral hydronephrosis N13.30 Hematuria R31.0 Hematuria type: gross LASHON (acute kidney injury) N17.9 Elevated d-dimer R79.89 Paroxysmal atrial fibrillation with RVR I48.0 COPD (chronic obstructive pulmonary disease) J44.9 Troponin level elevated R79.89 Hypertension I10 Rash of genital area R21 Smoker unmotivated to quit F17.200 Acute anemia D64.9 Systolic heart failure I50.20 Bacteremia R78.81
--- NOTE | 2020-01-30 09:03 | PC.OT ---
Attempted occupational therapy functional mobility eval and treatment. Patient refused and declined participation.
--- NOTE | 2020-01-30 09:25 | PC.SOCIAL ---
IMM Updated Page 2 of IMM updated and given to patient. Patient confused at this time, so also called family and explained to them by phone. Initialed, dated, and timed and placed back in chart.
[2020-01-30] MEDS: pantoprazole DR 40 mg Tablet PO (09:32)
[2020-01-30] MEDS: apixaban 5 mg Tablet 2.5 MG PO (09:32)
[2020-01-30] MEDS: tamsulosin 0.4 mg Capsule PO (09:32)
[2020-01-30] MEDS: lisinopril 10 mg Tablet PO (09:32)
[2020-01-30] MEDS: aspirin 81 mg EC Tablet PO (09:32)
[2020-01-30] MEDS: lanolin oint 7 gm 1 APPLIC TOPICAL (17:42)
--- NOTE | 2020-01-30 19:33 | PC.NURSE ---
pt has been confused,occas combative today.refuses to eat.refuses bath,oral care, pulls monitor leads off and tugs at urinary catheter.gets in sideways position in bed with head resting on bedrail and does not want to be moved.wore bipap for appox 3 hrs today and tolerated fairly well.tends to prefer oxymask to nasal cannula,when bipap is off.noted to have blood clot in urinary catheter tubing.dr so notified.irrigated with sterile ns, and return of bloody urine noted.apixaban placed on hold.later,blood noted from urinary meatus.pt pulls at catheter..it is secured with statlock.continue to redirect and reorient pt.bed alarm is set
[2020-01-30] MEDS: ziprasidone 20 mg/mL SDV IM (20:22)
[2020-01-30] MEDS: atorvastatin 40 mg Tablet PO (20:24)
[2020-01-30 22:20] LABS: HSV 1 DNA NOT DETECTED; HSV 2 DNA NOT DETECTED
[2020-01-31] VITALS (11 sets, daily range): BP systolic 90–127; BP diastolic 54–62; PULSE 54–83; RESP 16–21; TEMP 36.4–36.7; O2SAT 59–100; BMI 20.8
[2020-01-31 06:08] LABS: Alanine Aminotransferase 20 U/L (0-41); Albumin Level 2.6 g/dL (3.5-5.2); Alkaline Phosphatase 73 IU/L (40-130); Anion Gap 11.9 (5-19); Aspartate Amino Transferase 25 U/L (0-40); Blood Urea Nitrogen 25 mg/dL (8-23); Calcium 7.4 mg/dL (8.5-10.5); Carbon Dioxide 30 mmol/L (22-29); Chloride 107 mmol/L (98-107); Globulin 2.1 g/dL (1.3-4.6); Glucose 73 mg/dL (65-115); Osmolality Calculated 293 mOsm/kg (285-295); Potassium 4.9 mmol/L (3.5-5.1); Sodium 144 mmol/L (136-145); Total Bilirubin 0.5 mg/dL (0.15-1.2); Total Protein 4.7 g/dL (6.6-8.7)
[2020-01-31 06:41] LABS: Basophils % 0.1 %; Eosinophils % 0.4 %; Hematocrit 34.8 % (42.0-52.0); Lymphocytes # 0.5 10^3/uL (0.8-4.8); Lymphocytes % 4.1 %; Mean Corpuscular HGB Conc 31.6 g/dL (30.0-36.0); Mean Corpuscular Hemoglobin 30.1 pg (28.0-34.0); Mean Corpuscular Volume 95.1 fL (80-94); Mean Platelet Volume 11.4 fL (7.4-10.4); Monocytes # 0.7 10^3/uL (0.2-0.9); Monocytes % 6.1 %; Neutrophils # 10.06 10^3/uL (1.8-7.7); Neutrophils % 88.5 %; Nucleated Red Blood Cells % 0 %; Platelet Count 262 10^3/cmm (130-400); Red Blood Count 3.66 10^6/uL (4.1-5.3); Red Cell Distribution Width 15.2 % (12.1-15.1); White Blood Count 11.4 10^3/uL (4.0-10.0)
--- NOTE | 2020-01-31 07:39 | PC.NURSE ---
Patient started out the night very restless and uncooperative. Patient sat on side of bed and would not allow staff to assist him to the bed side commode. Patient had incontinent episode of BM and was very non compliant with cares. Patient continued to pull at Catheter and EKG leads as well as oxygen tubing. Patient was belligerent with staff. Provider notified and new order obtained for Geodon 20 mg IM. Patient recieved injection and left to sit on side of bed for a while with bed alarm on. Patient became cooperative and allowed staff to clean him up and assist him back to bed. Patient compliant with cares after that time. Patient laid in bed with eyes closed for the rest of the shift. Urine still red in color due to trauma from pulling on shirley. Will continue to monitor and assist as needed report given to oncoming shift.
[2020-01-31] MEDS: ipratropium-albuterol 3 mL Neb INHALATION ×2 (08:25→21:35)
--- NOTE | 2020-01-31 09:56 | PC.NURSE ---
this nurse attempted to insert picc line. this nurse was unsuccessful. attempted 3 times. icu nurse, liliana bardales. nurse stated patients spouse was refusing to let him go to the halfway so she wasn't sure patient was even going to need picc line.
--- NOTE | 2020-01-31 11:19 | PC.CHAP ---
Pastoral Care Encounter/Spiritual Assessment Type of Contact [] Declined wet crown blocking operator visit [] Patient/Family/Request visit [] Outpatient visit [] Follow-up visit [] Physician referral [] Code/Alert [] Routine visit [] Staff referral [] Actively dying [] Patient sleeping [] Family support [] [] Out of room [] Palliative care [] [] Receiving care in room [] Pre-surgical visit [] Trauma [] Long length of stay [] ICU visit [X] Other:Nurse specifically asked that we not visit with him. Relational/Emotional Strength [] Patient feels connected with others/family/visitors/staff [] Distress [] Loneliness/isolation [] Abandonment Spirituality of Patient [] Person of Natalie [] Attends Quaker of their Natalie [] Believes in Prayer [] Reads Bible or Spiritism materials [] There are Spiritual issues to be addressed Streetcar Starter Interventions [] Prayer [] Active listening [] Non-anxious presence [] Spiritual/emotional support [] Crisis/trauma care [] Spiritual counseling [] Bereavement support [] Provided bereavement packet [] Provided Bible/devotional materials [] Provided toy/stuffed animal, coloring book to patient or family member [] Provided Communion [] Anointing/[place] [] Salvation [] Completed spiritual assessment [] Other: Impact on Illness or Injury [] Angry [] Fearful [] Anxious [] Often cries [] Exhaustion [] Unable to work [] Unable to attend yazidism [] Unable to walk/stand [] Unable to read [] Unable to drive [] Unable to eat/drink [] Unable to sleep [] Unable to be with family [] Patient intubated [] Other: Summary Time spent with patient
--- NOTE | 2020-01-31 15:03 | P.PN_ITS ---
Subjective Subjective: Interval history: Patient appears to be doing better but still appears slightly confused. He did much better yesterday when his visited. He does not appear in any distress. His oxygen requirement improved. White blood cell count is down. Vitals appear to be stable. Remains afebrile. Patient developed hematuria yesterday and Linder catheter was irrigated. This morning his catheter still shows evidence of hematuria but less concentrated compared to yesterday as per RN. Eliquis was discontinued because of it. Hemoglobin appears to be stable Vitals/I&O/Wt Last Vital Signs Temp 97.9 F 01/31/20 10:56 Pulse 71 01/31/20 10:56 Resp 18 01/31/20 10:56 BP 127/59 01/31/20 10:56 Pulse Ox 100 01/31/20 10:56 01/31/20 01/31/20 01/31/20 06:59 14:59 22:59 Intake Total 200 / 770 Output Total 200 / 1500 Balance 0 / -730 Weight last 48 hrs Weight 58.513 kg Weight 58.513 kg Physical Exam Const: COMMON NORMALS: no acute distress Resp: COMMON NORMALS: normal respiratory effort OTHER: Clear throughout. Cardio: COMMON NORMALS: S2 normal heart sound present RHYTHM: abnormal rhythm irregularly irregular HEART SOUNDS: S2 normal heart sound present OTHER: No lower extremity edema GI: COMMON NORMALS: Normal to inspection, nondistended, normoactive bowel sounds present, Soft to palpation and non-tender PALPATION: Yes Soft to palpation Neuro: COMMON NORMALS: no focal motor deficits (On gross examination.) Urinary Catheter Management^: Linder: Cath Placed During This Visit: yes, but has since been removed by the nurse Reason for Continuing Indwelling Catheter: Accurate Measurement of Urinary Output in Critically Ill Patients Date Urinary Catheter Removed: 01/25/20 Time Urinary Catheter Discontinued: 22:20 3-way Urethral CBI: Cath Placed During This Visit: no Reason for Continuing Indwelling Catheter: Accurate Measurement of Urinary Output in Critically Ill Patients Data : 01/31/20 06:30 01/31/20 04:30 Micro: Microbiology 01/25/20 14:45 Blood Culture - Final Blood NO GROWTH AFTER 5 DAYS 01/25/20 14:40 Blood Culture - Final Blood Proteus mirabilis A&P Assessment and plan (1) Sepsis: Shock has resolved. He was weaned off pressor, currently blood pressures are good. He is afebrile. Leukocytosis is somewhat better at 13.9. Pneumonia left lower lobe. Possibility of urinary tract infection with hematuria, thickened urinary bladder wall, although suspicion for UTI is less. Lactic acid improved. Blood cultures drawn. Continue Levaquin, Zosyn. Concern for possible aspiration given prior laryngeal radiation therapy, as well as his reports he mostly sleeps on the left side, and that appears where his infiltrate is. Atempted to call spouse for an update, but could not reach her. In case of cardiopulmonary arrest he does want attempted resuscitation. also reports per prior discussion he would not want prolonged attempts or prolonged life support. Status: Acute (2) Pneumonia: Community-acquired pneumonia. Follow-up sputum culture. Continue Levaquin, Zosyn. Concern for possible aspiration. Concern for underlying PE given elevated risk, hypoxia, tachycardia, low blood pressure. High risk. VQ ordered, but has to be able to stay still for it. Consider CTA if renal function improves sufficiently. Empirically on anticoagulation for now. Noted left lower lobe groundglass opacity. COVID-19 rapid antigen (97% sensitivity) is negative. Possible aspiration given he has been more lethargic recently, sleeps mostly on the left side, and with history of laryngeal radiation therapy. Also with COPD exacerbation with wheezing, rhonchi. Status: Acute (3) Bilateral hydronephrosis: Continue decompression with Linder. This appears to be secondary to bladder outlet obstruction. Linder catheter lamonte gordy in ER, but subsequently with hematuria. Due to need for anticoagulation appreciate urology recommendations. Priority is to make sure bladder is draining at this time, flashes, and possible CBI will be requested. His hemoglobin is not low, and chronic hematuria is not reported. He does have some thickening of bladder wall, with smoking history, elevated d-dimer, may benefit from additional evaluation after he recovers to exclude other potential underlying problems, perhaps even malignancy as discussed with him and his . Status: Acute (4) Hematuria: Improved today. As above. For now continues empirically on anticoagulation. Monitor hemoglobin. Suspected due to injury from Linder. But will need additional work-up for other possible causes of hematuria and bladder wall thickening after he improves given underlying risk factors for malignancy. Status: Acute Qualifiers: Hematuria type: gross Qualified Code(s): R31.0 - Gross hematuria (5) LASHON (acute kidney injury): With mild improvement with fluid challenge, decompression of hydronephrosis. Hold lisinopril. Monitor EVANGELISTA, renal function. Maintain blood pressures. Appears he takes lisinopril at home, this may be multifactorial secondary hypot ension, possibly also secondary to lisinopril, but also may be post renal with noted bilateral hydronephrosis on presentation. Avoid nephrotoxins. Status: Acute (6) Elevated d-dimer: D-dimer elevated beyond 20. At this time not clear what causes. Lower extremity duplex is negative. High suspicion for PE as he is high risk with recent immobility, smoking, male gender, other risk factors. Concern for possibility of either recurrence of malignancy or new malignancy given heavy smoking. For now empirically continue heparin drip. Monitor hemoglobin. We will need additional work-up after he recovers. Status: Acute (7) Paroxysmal atrial fibrillation with RVR: HR 70-80. Continue low dose metoprolol. Treat underlying causes. Given risk factors long-term if can tolerate would benefit from anticoagulation for stroke prevention. Currently empirically on anticoagulation due to concern for possible VTE, discussed long-term he may benefit from anticoagulation due to risk of CVA with underlying hypertension, and his age. Treat underlying conditions as above. Atrial fibrillation appears to be new finding. Once his heart rates improved, consider additional assessment by TTE. Once condition improves, consider additional assessment/stratification for coronary artery disease given risk factors. Status: Acute (8) COPD (chronic obstructive pulmonary disease): Acute exacerbation of COPD, today sounds better, although still having mi ld wheezing on the left. Will decrease steroid frequency. Taper off as tolerating. Antibiotics as above. Breathing treatments. Sputum culture. Oxygen support. BiPAP as needed. Encourage smoking cessation. Status: Acute (9) Troponin level elevated: He is still not having any chest pain. EKG has not been suggestive of acute WA, and so suspect that is more likely demand ischemia/type II WA, however, NSTEMI is possible still, with troponin rising with significant delta, up to the highest 166. His hematuria has improved. Hemoglobin is with mild decline, however, without profound anemia. We will start him on some aspirin. Monitor for any worsening of bleeding, and aspirin may need to be discontinued. He is not a candidate currently for more invasive risk stratification/management. Continue low-dose beta-vini. Will add statin. A1c is 5.5. Continue to encourage smoking cessation. Monitor blood pressures and optimize control long- term. In addition he may need additional assessment with perhaps a stress test once he becomes more stable for underlying coronary disease which may be contributing to the current picture. Continue to manage underlying conditions as above, maintain blood pressure. Assess TTE. Status: Acute (10) Hypertension: Lisinopril on hold due to hypotension, acute kidney injury. Metoprolol. Status: Acute (11) Rash of genital area: For now we will add nystatin cream. Cannot exclude possibility of HSV, although no blisters are noted. No rash noted elsewhere. No sign of Rashid's gangrene. Maintain Linder catheter in place. Reassess. Antibiotics as above. reports he has recently funcionally declined. Has had urinary and fecal incontinence, perhaps after the fall. Possible cellulitis, but does not appear like typical cellullitis. Add linezolid. Check chlamydia/gonorrhea panel. HSV swab. Contact isolation for now. Status: Acute (12) Smoker unmotivated to quit: He was instructed previously to no longer smoke given the severity of cancer, with high risk of recurrence per discussion with his , however, states that he picked up smoking again about 6 months ago. He states smokes currently about 1.5 packs/day. Encourage cessation given detrimental effect of smoking to multiple organ systems, as well as problems noted here. Provide nicotine supplements if having withdrawal. Status: Acute (13) Acute anemia: Hemoglobin did decrease from initial 13.4, down to 10.5, however, was quite hemoconcentrated on presentation, dehydrated. Did receive quite a bit of IV fluid. Does have acute blood loss secondary to hematuria. Will check Hemoccult as well. Hematuria is better today, however, is still needing therapeutic anticoagulation empirically due to high concern for PE until he is able to be closer assessed for it. Also started on aspirin due to possible non-STEMI. We will monitor hemoglobin. Transfuse if decreased below 8-9 given cannot rule out that he does not have coronary ischemia, if develops profuse bleeding, may need to discontinue anticoagulation, aspirin or both. Status: Acute (14) Systolic heart failure: Appears chronic and present on admission. Currently compensated Status: Acute (15) Bacteremia: Due to Proteus mirabilis Status: Acute Additional A&P Information Non-ST elevation WA, most likely of type II secondary to A. fib and pneumonia. Present on admission. Acute hypoxic respiratory failure, present on admission. Secondary to pneumonia. Lactic acidosis Leukocytosis History of laryngeal cancer, status post radiation and chemotherapy, did not have surgery from what I can see from his follow-up with Dr. Tyson (although seems to think he may have). Recent functional decline: reports that for the past 6 weeks or so he has been mostly sleeping during the day, he has pretty much not been ambulatory. She does report that he had a fall and has been complaining of leg pain. We will go ahead and image bilateral hips given his fall and immobility. She does report bowel and bladder incontinence. Will assess also CT lumbar/sacral spine to exclude acute cord compression. Noncontrast due to acute kidney injury. Early decub sores noted on bony promences on back, elbow and a few other locations. Reposition frequently. Improve nutrition once he is able to tolerate diet reliably. Urinary tract infection with hematuria. With ESBL Proteus mirabilis. Likely present on admission. PLAN: Continue current antibiotic. Awaiting PICC line placement with plan to discharge patient to nursing facility on Sunday. Patient appears to be getting confused when is not with him. I think once he is discharged outside of the hospital he will do much better. Will get chest x-ray in a.m. To further evaluate for pneumonia. Attestations Medical Necessity Statement*: Patient with UTI and bacteremia requires inpatient monitoring and treatment until deemed safe for discharge. Time Spent in Patient Care: 16 - 35 minutes Coding Level of Care Code Acute Medical Office Technologist for [facility] Diagnoses Sepsis A41.9 Pneumonia J18.9 Bilateral hydronephrosis N13.30 Hematuria R31.0 Hematuria type: gross LASHON (acute kidney injury) N17.9 Elevated d-dimer R79.89 Paroxysmal atrial fibrillation with RVR I48.0 COPD (chronic obstructive pulmonary disease) J44.9 Troponin level elevated R79.89 Hypertension I10 Rash of genital area R21 Smoker unmotivated to quit F17.200 Acute anemia D64.9 Systolic heart failure I50.20 Bacteremia R78.81
[2020-01-31] MEDS: lisinopril 10 mg Tablet PO (16:36)
[2020-01-31] MEDS: aspirin 81 mg EC Tablet PO (16:36)
[2020-01-31] MEDS: pantoprazole DR 40 mg Tablet PO (16:36)
[2020-01-31] MEDS: tamsulosin 0.4 mg Capsule PO (16:37)
--- NOTE | 2020-01-31 16:39 | PC.NURSE ---
pt has been sleeping all day.not cooperative when aroused and falls quickly back to sleep.unable to give oral medicines earlier today.gave bath this afternoon and pt woke up a little.able to swallow meds whole with a sip of water.fell back asleep.vs have been stable.pt keeps oxymask in place.spouse vishal visited..states she plans to take pt home at discharge...states pt has voiced that he does not want to go to a senior living..and she wants to abide by his wishes.
--- NOTE | 2020-01-31 17:14 | PC.OT ---
OT tx attempted several times today. Pt has been sleeping and unable to arouse for meals, cares or family visit. Nursing providing pt bathing with minimal arousal. At this time nursing requests OT tx be withheld until tomorrow.
[2020-01-31] MEDS: atorvastatin 40 mg Tablet PO (21:26)
[2020-02-01] VITALS (10 sets, daily range): BP systolic 91–141; BP diastolic 51–70; PULSE 63–87; RESP 16–26; TEMP 36.5–36.8; O2SAT 92–100
--- NOTE | 2020-02-01 00:34 | PC.NURSE ---
PT IS RESTING IN BED AT THIS TIME. WILL CONTINUE TO MONITOR.
[2020-02-01 03:58] LABS: Basophils % 0.1 %; Eosinophils % 0.2 %; Hematocrit 34.4 % (42.0-52.0); Hemoglobin 10.7 g/dL (11.7-16.6); Lymphocytes # 0.6 10^3/uL (0.8-4.8); Lymphocytes % 5.5 %; Mean Corpuscular HGB Conc 31.1 g/dL (30.0-36.0); Mean Corpuscular Hemoglobin 29.8 pg (28.0-34.0); Mean Corpuscular Volume 95.8 fL (80-94); Mean Platelet Volume 11.4 fL (7.4-10.4); Monocytes # 0.7 10^3/uL (0.2-0.9); Monocytes % 6.2 %; Neutrophils # 9.82 10^3/uL (1.8-7.7); Neutrophils % 87.4 %; Nucleated Red Blood Cells % 0 %; Platelet Count 290 10^3/cmm (130-400); Red Blood Count 3.59 10^6/uL (4.1-5.3); Red Cell Distribution Width 15.1 % (12.1-15.1); White Blood Count 11.2 10^3/uL (4.0-10.0)
[2020-02-01 04:15] LABS: Alanine Aminotransferase 17 U/L (0-41); Albumin Level 2.4 g/dL (3.5-5.2); Alkaline Phosphatase 69 IU/L (40-130); Anion Gap 8.7 (5-19); Aspartate Amino Transferase 22 U/L (0-40); Blood Urea Nitrogen 27 mg/dL (8-23); Calcium 7.5 mg/dL (8.5-10.5); Carbon Dioxide 31 mmol/L (22-29); Chloride 107 mmol/L (98-107); Globulin 2.7 g/dL (1.3-4.6); Glucose 80 mg/dL (65-115); Osmolality Calculated 290 mOsm/kg (285-295); Potassium 4.7 mmol/L (3.5-5.1); Sodium 142 mmol/L (136-145); Total Bilirubin 0.5 mg/dL (0.15-1.2); Total Protein 5.1 g/dL (6.6-8.7)
--- NOTE | 2020-02-01 05:53 | PC.NURSE ---
PT APPEARED TO HAVE RESTED WITH EYES CLOSED MOST OF THE NIGHT. PT DENIES PAIN AT THIS TIME. WILL GIVE REPORT TO ON COMING NURSE.
--- NOTE | 2020-02-01 08:04 | PM.PN ---
Subjective Subjective: Interval history: Patient is more alert this morning. He knows he is in the hospital. He does not eat. his BP is on low side and Lisinopril placed on hold. HR in the 60s this morning. again refused placement to SNF and also not ready to take patient home as she works and no one can take care of him at home. Patient refused chest X-Ray this morning. Vitals/I&O/Wt Last Vital Signs Temp 97.7 F 02/01/20 00:00 Pulse 63 02/01/20 04:00 Resp 17 02/01/20 04:00 BP 91/51 02/01/20 04:00 Pulse Ox 92 02/01/20 04:00 01/31/20 02/01/20 02/01/20 22:59 06:59 14:59 Intake Total 200 / 300 100 / 400 Output Total 450 / 450 325 / 775 Balance -250 / -150 -225 / -375 Weight last 48 hrs Weight 59.194 kg Weight 58.513 kg Physical Exam Const: COMMON NORMALS: no acute distress Resp: COMMON NORMALS: normal respiratory effort OTHER: Clear throughout. Cardio: COMMON NORMALS: S2 normal heart sound present RHYTHM: abnormal rhythm irregularly irregular HEART SOUNDS: S2 normal heart sound present OTHER: No lower extremity edema GI: COMMON NORMALS: Normal to inspection, nondistended, normoactive bowel sounds present, Soft to palpation and non-tender PALPATION: Yes Soft to palpation Neuro: COMMON NORMALS: no focal motor deficits (On gross examination.) Skin: NARRATIVE SKIN EXAM: Small slightly indurated lesion on penis, appears chronic Urinary Catheter Management^: Linder: Cath Placed During This Visit: yes, but has since been removed by the nurse Reason for Continuing Indwelling Catheter: Accurate Measurement of Urinary Output in Critically Ill Patients Date Urinary Catheter Removed: 01/25/20 Time Urinary Catheter Discontinued: 22:20 3-way Urethral CBI: Cath Placed During This Visit: no Reason for Continuing Indwelling Catheter: Accurate Measurement of Urinary Output in Critically Ill Patients Data : 02/01/20 03:31 02/01/20 03:31 A&P Assessment and plan (1) Sepsis: Shock has resolved. He was weaned off pressor, currently blood pressures are good. He is afebrile. Leukocytosis is somewhat better at 13.9. Pneumonia left lower lobe. Possibility of urinary tract infection with hematuria, thickened urinary bladder wall, although suspicion for UTI is less. Lactic acid improved. Blood cultures drawn. Continue Levaquin, Zosyn. Concern for possible aspiration given prior laryngeal radiation therapy, as well as his reports he mostly sleeps on the left side, and that appears where his infiltrate is. Atempted to call spouse for an update, but could not reach her. In case of cardiopulmonary arrest he does want attempted resuscitation. also reports per prior discussion he would not want prolonged attempts or prolonged life support. Status: Acute (2) Pneumonia: Community-acquired pneumonia. Follow-up sputum culture. Continue Levaquin, Zosyn. Concern for possible aspiration. Concern for underlying PE given elevated risk, hypoxia, tachycardia, low blood pressure. High risk. VQ ordered, but has to be able to stay still for it. Consider CTA if renal function improves sufficiently. Empirically on anticoagulation for now. Noted left lower lobe groundglass opacity. COVID-19 rapid antigen (97% sensitivity) is negative. Possible aspiration given he has been more lethargic recently, sleeps mostly on the left side, and with history of laryngeal radiation therapy. Also with COPD exacerbation with wheezing, rhonchi. Status: Acute (3) Bilateral hydronephrosis: Continue decompression with Linder. This appears to be secondary to bladder outlet obstruction. Linder catheter placed in ER, but subsequently with hematuria. Due to need for anticoagulation appreciate urology recommendations. Priority is to make sure bladder is draining at this time, flashes, and possible CBI will be requested. His hemoglobin is not low, and chronic hematuria is not reported. He does have some thickening of bladder wall, with smoking history, elevated d-dimer, may benefit from additional evaluation after he recovers to exclude other potential underlying problems, perhaps even malignancy as discussed with him and his . Status: Acute (4) Hematuria: Improved today. As above. For now continues empirically on anticoagulation. Monitor hemoglobin. Suspected due to injury from Linder. But will need additional work-up for other possible causes of hematuria and bladder wall thickening after he improves given underlying risk factors for malignancy. Status: Acute Qualifiers: Hematuria type: gross Qualified Code(s): R31.0 - Gross hematuria (5) LASHON (acute kidney injury): With mild improvement with fluid challenge, decompression of hydronephrosis. Hold lisinopril. Monitor EVANGELISTA, renal function. Maintain blood pressures. Appears he takes lisinopril at home, this may be multifactorial secondary hypotension, possibly also secondary to lisinopril, but also may be post renal with noted bilateral hydronephrosis on presentation. Avoid nephrotoxins. Status: Acute (6) Elevated d-dimer: D-dimer elevated beyond 20. At this time not clear what causes. Lower extremity duplex is negative. High suspicion for PE as he is high risk with recent immobility, smoking, male gender, other risk factors. Concern for possibility of either recurrence of malignancy or new malignancy given heavy smoking. For now empirically continue heparin drip. Monitor hemoglobin. We will need additional work-up after he recovers. Status: Acute (7) Paroxysmal atrial fibrillation with RVR: HR 70-80. Continue low dose metoprolol. Treat underlying causes. Given risk factors long-term if can tolerate would benefit from anticoagulation for stroke prevention. Currently empirically on anticoagulation due to concern for possible VTE, discussed long-term he may benefit from anticoagulation due to risk of CVA with underlying hypertension, and his age. Treat underlying conditions as above. Atrial fibrillation appears to be new finding. Once his heart rates improved, consider additional assessment by TTE. Once condition improves, consider additional assessment/stratification for coronary artery disease given risk factors. Status: Acute (8) COPD (chronic obstructive pulmonary disease): Acute exacerbation of COPD, today sounds better, although still having mild wheezing on the left. Will decrease steroid frequency. Taper off as tolerating. Antibiotics as above. Breathing treatments. Sputum culture. Oxygen support. BiPAP as needed. Encourage smoking cessation. Status: Acute (9) Troponin level elevated: He is still not having any chest pain. EKG has not been suggestive of acute UT, and so suspect that is more likely demand ischemia/type II UT, however, NSTEMI is possible still, with troponin rising with significant delta, up to the highest 166. His hematuria has improved. Hemoglobin is with mild decline, however, without profound anemia. We will start him on some aspirin. Monitor for any worsening of bleeding, and aspirin may need to be discontinued. He is not a candidate currently for more invasive risk stratification/management. Continue low-dose beta-vini. Will add statin. A1c is 5.5. Continue to encourage smoking cessation. Monitor blood pressures and optimize control long-term. In addition he may need additional assessment with perhaps a stress test once he becomes more stable for underlying coronary disease which may be contributing to the current picture. Continue to manage underlying conditions as above, maintain blood pressure. Assess TTE. Status: Acute (10) Hypertension: Lisinopril on hold due to hypotension, acute kidney injury. Metoprolol. Status: Acute (11) Rash of genital area: For now we will add nystatin cream. Cannot exclude possibility of HSV, although no blisters are noted. No rash noted elsewhere. No sign of Rashid's gangrene. Maintain Linder catheter in place. Reassess. Antibiotics as above. reports he has recently funcionally declined. Has had urinary and fecal incontinence, perhaps after the fall. Possible cellulitis, but does not appear like typical cellullitis. Add linezolid. Check chlamydia/gonorrhea panel. HSV swab. Contact isolation for now. Status: Acute (12) Smoker unmotivated to quit: He was instructed previously to no longer smoke given the severity of cancer, with high risk of recurrence per discussion with his , however, states that he picked up smoking again about 6 months ago. He states smokes currently about 1.5 packs/day. Encourage cessation given detrimental effect of smoking to multiple organ systems, as well as problems noted here. Provide nicotine supplements if having withdrawal. Status: Acute (13) Acute anemia: Hemoglobin did decrease from initial 13.4, down to 10.5, however, was quite hemoconcentrated on presentation, dehydrated. Did receive quite a bit of IV fluid. Does have acute blood loss secondary to hematuria. Will check Hemoccult as well. Hematuria is better today, however, is still needing therapeutic anticoagulation empirically due to high concern for PE until he is able to be closer assessed for it. Also started on aspirin due to possible non-STEMI. We will monitor hemoglobin. Transfuse if decreased below 8-9 given cannot rule out that he does not have coronary ischemia, if develops profuse bleeding, may need to discontinue anticoagulation, aspirin or both. Status: Acute (14) Systolic heart failure: Appears chronic and present on admission. Currently compensated Status: Acute (15) Bacteremia: Due to Proteus mirabilis Status: Acute Additional A&P Information Non-ST elevation UT, most likely of type II secondary to A. fib and pneumonia. Present on admission. Acute hypoxic respiratory failure, present on admission. Secondary to pneumonia. Lactic acidosis Leukocytosis History of laryngeal cancer, status post radiation and chemotherapy, did not have surgery from what I can see from his follow-up with Dr. Tyson (although seems to think he may have). Recent functional decline: reports that for the past 6 weeks or so he has been mostly sleeping during the day, he has pretty much not been ambulatory. She does report that he had a fall and has been complaining of leg pain. We will go ahead and image bilateral hips given his fall and immobility. She does report bowel and bladder incontinence. Will assess also CT lumbar/sacral spine to exclude acute cord compression. Noncontrast due to acute kidney injury. Early decub sores noted on bony promences on back, elbow and a few other locations. Reposition frequently. Improve nutrition once he is able to tolerate diet reliably. Urinary tract infection with hematuria. With ESBL Proteus mirabilis. Likely present on admission. PLAN: Continue current antibiotic. Will try contacting to discuss disposition plan. We will try getting PICC arranged today or tomorrow. Attestations Medical Necessity Statement*: patient with bacteremia and UTI requires close inpatient monitoring and treatment until placement is arranged. Time Spent in Patient Care: 16 - 35 minutes Coding Level of Care Code Acute Child Support Agent for [facility] Fwd Diagnoses Sepsis A41.9 Pneumonia J18.9 Bilateral hydronephrosis N13.30 Hematuria R31.0 Hematuria type: gross LASHON (acute kidney injury) N17.9 Elevated d-dimer R79.89 Paroxysmal atrial fibrillation with RVR I48.0 COPD (chronic obstructive pulmonary disease) J44.9 Troponin level elevated R79.89 Hypertension I10 Rash of genital area R21 Smoker unmotivated to quit F17.200 Acute anemia D64.9 Systolic heart failure I50.20 Bacteremia R78.81
--- NOTE | 2020-02-01 09:22 | PC.SOCIAL ---
IMM information left with pt and pt not coherent at the time.
--- NOTE | 2020-02-01 11:29 | PC.CHAP ---
Pastoral Care Encounter/Spiritual Assessment Type of Contact [] Declined experimental plastics fabricator visit [] Patient/Family/Request visit [] Outpatient visit [] Follow-up visit [] Physician referral [] Code/Alert [] Routine visit [X] Staff referral [] Actively dying [X] Patient sleeping [] Family support [] [] Out of room [] Palliative care [] [] Receiving care in room [] Pre-surgical visit [] Trauma [] Long length of stay [] ICU visit [] Other: Relational/Emotional Strength [] Patient feels connected with others/family/visitors/staff [] Distress [] Loneliness/isolation [] Abandonment Spirituality of Patient [] Person of Natalie [] Attends Sabianism of their Natalie [] Believes in Prayer [] Reads Bible or Alevism materials [] There are Spiritual issues to be addressed Tie Sawyer Interventions [X] Prayer [] Active listening [] Non-anxious presence [] Spiritual/emotional support [] Crisis/trauma care [] Spiritual counseling [] Bereavement support [] Provided bereavement packet [] Provided Bible/devotional materials [] Provided toy/stuffed animal, coloring book to patient or family member [] Provided Communion [] Anointing/Patriot [] Salvation [] Completed spiritual assessment [] Other: Impact on Illness or Injury [] Angry [] Fearful [] Anxious [] Often cries [] Exhaustion [] Unable to work [] Unable to attend gnosticism [] Unable to walk/stand [] Unable to read [] Unable to drive [] Unable to eat/drink [] Unable to sleep [] Unable to be with family [] Patient intubated [] Other: Summary: Today, the nurse said that it would be okay to see the pt and pray for him at bedside. I did not wake or disturb him based on my conversation with same nurse yesterday. Time spent with patient: 2 mins
--- NOTE | 2020-02-01 15:10 | PC.NURSE ---
pt has been sleeping all day..will arouse when touched and spoken to. attempted to give oral medications and turn ptmahogany through-out day.. pt mumbles no .has left planishing press operator on..not trying to pull off oxymask or iv today.refuses to allow nurse to put pt gown on pt.refuses meals or drinks of water.dr so dc'd lisinopril due to decreased bp's.
--- NOTE | 2020-02-01 15:19 | PC.OT ---
OT tx withheld today. Nursing reports pt is not wanting to move, declining repositioning and basic nursing care. Pt discharge planning undetermined at this time as pt requires total care. ROPER to consult with OTR for discharge from OT services at this time as pt is not interested in participation.
--- NOTE | 2020-02-01 19:14 | PC.NURSE ---
about 1700 nurse entered room and approached pt for assessment...and pt opened eyes.. was alert,oriented to person and place..cooperative..and asked for a glass of water! pt's speech was clear.he denied pain.drank water without difficulty.offered to have a gown placed on him..and pt stated he did not want one.asked if he wanted to be repositioned and he stated no he did not.urine remains dark red throughout day.o2 sats >92%.instructed pt to please use call gale if he has any needs..and he verb understanding.
[2020-02-01] MEDS: atorvastatin 40 mg Tablet PO (21:00)
--- NOTE | 2020-02-01 22:47 | PC.NURSE ---
BEDSIDE REPORT WAS GIVEN BY OFF GOING NURSE. PT HAS HEMATURIA. PT WAS ALERT TO NAME AND RESPONDED TO NURSE. PT DENIES PAIN AT THIS TIME. WILL CONTINUE TO MONITOR.
[2020-02-02] VITALS (8 sets, daily range): BP systolic 94–160; BP diastolic 43–88; PULSE 72–88; RESP 14–22; TEMP 36.3–36.6; O2SAT 95–99
--- NOTE | 2020-02-02 04:42 | PC.NURSE ---
PT IS MORE AWAKE AND ALERT AT THIS TIME. PT DRANK ABOUT 500ML OF WATER. PT FOLLOWED DIRECTIONS. V/S WNL WILL CONTINUE TO MONITOR.
[2020-02-02] MEDS: ipratropium-albuterol 3 mL Neb INHALATION ×2 (08:26→20:54)
--- NOTE | 2020-02-02 08:30 | PC.NURSE ---
Patient is side lying left. Opens eyes to voice. Oriented x2 (name and in hospital ). Patient able to drink water and finished one bottle of ensure without any difficultly swallowing.
[2020-02-02 08:37] LABS: Basophils % 0.1 %; Eosinophils % 0.3 %; Hematocrit 33.2 % (42.0-52.0); Hemoglobin 10.3 g/dL (11.7-16.6); Lymphocytes # 0.5 10^3/uL (0.8-4.8); Mean Corpuscular Hemoglobin 29.9 pg (28.0-34.0); Mean Corpuscular Volume 96.2 fL (80-94); Monocytes # 0.8 10^3/uL (0.2-0.9); Monocytes % 8.6 %; Neutrophils # 7.59 10^3/uL (1.8-7.7); Nucleated Red Blood Cells % 0 %; Platelet Count 298 10^3/cmm (130-400); Red Blood Count 3.45 10^6/uL (4.1-5.3); Red Cell Distribution Width 14.9 % (12.1-15.1)
[2020-02-02] MEDS: pantoprazole DR 40 mg Tablet PO (08:39)
[2020-02-02] MEDS: tamsulosin 0.4 mg Capsule PO (08:39)
[2020-02-02] MEDS: aspirin 81 mg EC Tablet PO (08:39)
[2020-02-02 08:42] LABS: INR 1.04 (0.8-1.2)
[2020-02-02 08:50] LABS: Alanine Aminotransferase 16 U/L (0-41); Albumin Level 2.5 g/dL (3.5-5.2); Alkaline Phosphatase 79 IU/L (40-130); Anion Gap 11.2 (5-19); Aspartate Amino Transferase 34 U/L (0-40); Blood Urea Nitrogen 25 mg/dL (8-23); Calcium 8.3 mg/dL (8.5-10.5); Carbon Dioxide 31 mmol/L (22-29); Chloride 107 mmol/L (98-107); Globulin 2.4 g/dL (1.3-4.6); Glucose 57 mg/dL (65-115); Osmolality Calculated 295 mOsm/kg (285-295); Potassium 4.2 mmol/L (3.5-5.1); Sodium 145 mmol/L (136-145); Total Bilirubin 0.7 mg/dL (0.15-1.2); Total Protein 4.9 g/dL (6.6-8.7)
--- NOTE | 2020-02-02 10:57 | PC.OT ---
OT note: Pt refused edge of bed or out of bed activity at this time, only agreeable to eat jello and drink Ensure at bed level with head of bed raised. From discussion in rounding pt to discharge on hospice/home health. Due to this will discharge from OT at this time as pt does not wish to participate in OT at this time.
--- NOTE | 2020-02-02 15:56 | P.PN_ITS ---
Subjective Subjective: Interval history: Patient is much more alert this morning. Denies shortness of breath or chest pain. Is not very cooperative. Oriented to self and place. decided to proceed with home hospice and does not want patient to go to nursing facility. Patient's hematuria appears to be improving. He required some manual Linder flushing. Has some left ecchymosis that has been there and likely developed post fall. Hemoglobin and platelets appear to be stable Vitals/I&O/Wt Last Vital Signs Temp 97.7 F 02/02/20 11:07 Pulse 79 02/02/20 11:07 Resp 20 H 02/02/20 11:07 BP 160/60 02/02/20 11:07 Pulse Ox 96 02/02/20 11:07 02/02/20 02/02/20 02/02/20 06:59 14:59 22:59 Intake Total 600 / 1100 970 / 970 Output Total 700 / 700 Balance -100 / 400 970 / 970 Weight last 48 hrs Weight 59.239 kg Weight 59.194 kg Physical Exam Const: COMMON NORMALS: no acute distress Resp: COMMON NORMALS: normal respiratory effort OTHER: Clear throughout. Cardio: COMMON NORMALS: S2 normal heart sound present RHYTHM: abnormal rhythm irregularly irregular HEART SOUNDS: S2 normal heart sound present OTHER: No lower extremity edema GI: COMMON NORMALS: Normal to inspection, nondistended, normoactive bowel sounds present, Soft to palpation and non-tender PALPATION: Yes Soft to palpation Neuro: COMMON NORMALS: no focal motor deficits (On gross examination.) Urinary Catheter Management^: Linder: Cath Placed During This Visit: yes, but has since been removed by the nurse Reason for Continuing Indwelling Catheter: Accurate Measurement of Urinary Output in Critically Ill Patients Date Urinary Catheter Removed: 01/25/20 Time Urinary Catheter Discontinued: 22:20 3-way Urethral CBI: Cath Placed During This Visit: no Reason for Continuing Indwelling Catheter: Accurate Measurement of Urinary Output in Critically Ill Patients Data : 02/02/20 08:22 02/02/20 08:22 A&P Assessment and plan (1) Sepsis: Shock has resolved. He was weaned off pressor, currently blood pressures are good. He is afebrile. Leukocytosis is somewhat better at 13.9. Pneumonia left lower lobe. Possibility of urinary tract infection with hematuria, thickened urinary bladder wall, although suspicion for UTI is less. Lactic acid improved. Blood cultures drawn. Continue Levaquin, Zosyn. Concern for possible aspiration given prior laryngeal radiation therapy, as well as his reports he mostly sleeps on the left side, and that appears where his infiltrate is. Atempted to call spouse for an update, but could not reach her. In case of cardiopulmonary arrest he does want attempted resuscitation. also reports per prior discussion he would not want prolonged attempts or prolonged life support. Status: Acute (2) Pneumonia: Community-acquired pneumonia. Follow-up sputum culture. Continue Levaquin, Zosyn. Concern for possible aspi ration. Concern for underlying PE given elevated risk, hypoxia, tachycardia, low blood pressure. High risk. VQ ordered, but has to be able to stay still for it. Consider CTA if renal function improves sufficiently. Empirically on anticoagulation for now. Noted left lower lobe groundglass opacity. COVID-19 rapid antigen (97% sensitivity) is negative. Possible aspiration given he has been more lethargic recently, sleeps mostly on the left side, and with history of laryngeal radiation therapy. Also with COPD exacerbation with wheezing, rhonchi. Status: Acute (3) Bilateral hydronephrosis: Continue decompression with Linder. This appears to be secondary to bladder outlet obstruction. Linder catheter placed in ER, but subsequently with hematuria. Due to need for anticoagulation appreciate urology recommendations. Priority is to make sure bladder is draining at this time, flashes, and possible CBI will be requested. His hemoglobin is not low, and chronic hematuria is not reported. He does have some thickening of bladder wall, with smoking history, elevated d-dimer, may benefit from additional evaluation after he recovers to exclude other potential underlying problems, perhaps even malignancy as discussed with him and his . Status: Acute (4) Hematuria: Improved today. As above. For now continues empirically on anticoagulation. Monitor hemoglobin. Suspected due to injury from Linder. But will need additional work-up for other possible causes of hematuria and bladder wall thickening after he improves given underlying risk factors for malignancy. Status: Acute Qualifiers: Hematuria type: gross Qualified Code(s): R31.0 - Gross hematuria (5) LASHON (acute kidney injury): With mild improvement with fluid challenge, decompression of hydronephrosis. Hold lisinopril. Monitor EVANGELISTA, renal function. Maintain blood pressures. Appears he takes lisinopril at home, this may be multifactorial secondary hypotension, possibly also secondary to lisinopril, but also may be post renal with noted bilateral hydronephrosis on presentation. Avoid nephrotoxins. Status: Acute (6) Elevated d-dimer: D-dimer elevated beyond 20. At this time not clear what causes. Lower extremity duplex is negative. High suspicion for PE as he is high risk with recent immobility, smoking, male gender, other risk factors. Concern for possibility of either recurrence of malignancy or new malignancy given heavy smoking. For now empirically continue heparin drip. Monitor hemoglobin. We will need additional work-up after he recovers. Status: Acute (7) Paroxysmal atrial fibrillation with RVR: HR 70-80. Continue low dose metoprolol. Treat underlying causes. Given risk factors long-term if can tolerate would benefit from anticoagulation for stroke prevention. Currently empirically on anticoagulation due to concern for possible VTE, discussed long-term he may benefit from anticoagulation due to risk of CVA with underlying hypertension, and his age. Treat underlying conditions as above. Atrial fibrillation appears to be new finding. Once his heart rates improved, consider additional assessment by TTE. Once condition improves, consider additional assessment/stratification for coronary artery disease given risk factors. Status: Acute (8) COPD (chronic obstructive pulmonary disease): Acute exacerbation of COPD, today sounds better, although still having mild wheezing on the left. Will decrease steroid frequency. Taper off as tolerating. Antibiotics as above. Breathing treatments. Sputum culture. Oxygen support. BiPAP as needed. Encourage smoking cessation. Status: Acute (9) Troponin level elevated: He is still not having any chest pain. EKG has not been suggestive of acute TN, and so suspect that is more likely demand ischemia/type II TN, however, NSTEMI is possible still, with troponin rising with significant delta, up to the highest 166. His hematuria has improved. Hemoglobin is with mild decline, however, without profound anemia. We will start him on some aspirin. Monitor for any worsening of bleeding, and aspirin may need to be discontinued. He is not a candidate currently for more invasive risk stratification/management. Continue low-dose beta-vini. Will add statin. A1c is 5.5. Continue to encourage smoking cessation. Monitor blood pressures and optimize control long- term. In addition he may need additional assessment with perhaps a stress test once he becomes more stable for underlying coronary disease which may be contributing to the current picture. Continue to manage underlying conditions as above, maintain blood pressure. Assess TTE. Status: Acute (10) Hypertension: Lisinopril on hold due to hypotension, acute kidney injury. Metoprolol. Status: Acute (11) Rash of genital area: For now we will add nystatin cream. Cannot exclude possibility of HSV, although no blisters are noted. No rash noted elsewhere. No sign of Rashid's gangrene. Maintain Linder catheter in place. Reassess. Antibiotics as above. reports he has recently funcionally declined. Has had urinary and fecal incontinence, perhaps after the fall. Possible cellulitis, but does not appear like typical cellullitis. Add linezolid. Check chlamydia/gonorrhea panel. HSV swab. Contact isolation for now. Status: Acute (12) Smoker unmotivated to quit: He was instructed previously to no longer smoke given the severity of cancer, with high risk of recurrence per discussion with his , however, states that he picked up smoking again about 6 months ago. He states smokes currently about 1.5 packs/day. Encourage cessation given detrimental effect of smoking to multiple organ systems, as well as problems noted here. Provide nicotine supplements if having withdrawal. Status: Acute (13) Acute anemia: Hemoglobin did decrease from initial 13.4, down to 10.5, however, was quite hemoconcentrated on presentation, dehydrated. Did receive quite a bit of IV fluid. Does have acute blood loss secondary to hematuria. Will check Hemoccult as well. Hematuria is better today, however, is still needing therapeutic anticoagulation empirically due to high concern for PE until he is able to be closer assessed for it. Also started on aspirin due to possible non-STEMI. We will monitor hemoglobin. Transfuse if decreased below 8-9 given cannot rule out that he does not have coronary ischemia, if develops profuse bleeding, may need to discontinue anticoagulation, aspirin or both. Status: Acute (14) Systolic heart failure: Appears chronic and present on admission. Currently compensated Status: Acute (15) Bacteremia: Due to Proteus mirabilis Status: Acute Additional A&P Information Non-ST elevation TN, most likely of type II secondary to A. fib and pneumonia. Present on admission. Acute hypoxic respiratory failure, present on admission. Secondary to pneumonia. Lactic acidosis Leukocytosis History of laryngeal cancer, status post radiation and chemotherapy, did not have surgery from what I can see from his follow-up with Dr. Tyson (although seems to think he may have). Recent functional decline: reports that for the past 6 weeks or so he has been mostly sleeping during the day, he has pretty much not been ambulatory. She does report that he had a fall and has been complaining of leg pain. We will go ahead and image bilateral hips given his fall and immobility. She does report bowel and bladder incontinence. Will assess also CT lumbar/sacral spine to exclude acute cord compression. Noncontrast due to acute kidney injury. Early decub sores noted on bony promences on back, elbow and a few other locations. Reposition frequently. Improve nutrition once he is able to tolerate diet reliably. Urinary tract infection with hematuria. With ESBL Proteus mirabilis. Likely present on admission. PLAN: Continue Primaxin with plan to discharge patient on ertapenem for 1 more week. Awaiting PICC line placement. Home IV administration and hospice referral orders placed. Attestations Medical Necessity Statement*: Patient with significant infectious process requires inpatient monitoring and treatment until appropriate arrangements are made. 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
--- NOTE | 2020-02-02 17:26 | PC.NURSE ---
Patient came to visit during visiting hours today, was asked to sign consent form for PICC line placement due to patient decreased cognition. wanted some time to talk it over with the patient. Patient refuses PICC line placement reports her does not want the PICC and denies consent at this time. would like for the doctor to speak with him if he okays placement to the doctor then to go ahead with placement if he says no then do not place. Dr Vyas notified of conversation with and this nurse no new instructions given at this time.
[2020-02-02] MEDS: atorvastatin 40 mg Tablet PO (20:38)
[2020-02-03] VITALS (8 sets, daily range): BP systolic 91–106; BP diastolic 47–63; PULSE 59–79; RESP 16–19; TEMP 36.1–36.7; O2SAT 87–99
[2020-02-03 05:58] LABS: Alanine Aminotransferase 15 U/L (0-41); Albumin Level 2.5 g/dL (3.5-5.2); Alkaline Phosphatase 70 IU/L (40-130); Aspartate Amino Transferase 22 U/L (0-40); Blood Urea Nitrogen 25 mg/dL (8-23); Calcium 7.8 mg/dL (8.5-10.5); Carbon Dioxide 32 mmol/L (22-29); Chloride 105 mmol/L (98-107); Globulin 2.4 g/dL (1.3-4.6); Glucose 102 mg/dL (65-115); Magnesium 1.6 mg/dL (1.7-2.3); Osmolality Calculated 291 mOsm/kg (285-295); Sodium 142 mmol/L (136-145); Total Bilirubin 0.7 mg/dL (0.15-1.2); Total Protein 4.9 g/dL (6.6-8.7)
[2020-02-03 05:59] LABS: Anion Gap 9.2 (5-19); Potassium 4.2 mmol/L (3.5-5.1)
[2020-02-03 07:08] LABS: Basophils % 0.1 %; Eosinophils % 0.4 %; Hematocrit 30.4 % (42.0-52.0); Hemoglobin 9.5 g/dL (11.7-16.6); Lymphocytes # 0.8 10^3/uL (0.8-4.8); Lymphocytes % 7.8 %; Mean Corpuscular HGB Conc 31.3 g/dL (30.0-36.0); Mean Corpuscular Hemoglobin 30.3 pg (28.0-34.0); Mean Corpuscular Volume 96.8 fL (80-94); Mean Platelet Volume 10.9 fL (7.4-10.4); Monocytes # 1.2 10^3/uL (0.2-0.9); Neutrophils # 7.56 10^3/uL (1.8-7.7); Neutrophils % 78.5 %; Nucleated Red Blood Cells % 0 %; Platelet Count 274 10^3/cmm (130-400); Red Blood Count 3.14 10^6/uL (4.1-5.3); White Blood Count 9.6 10^3/uL (4.0-10.0)
[2020-02-03] MEDS: ipratropium-albuterol 3 mL Neb INHALATION (08:01)
[2020-02-03] MEDS: magnesium sulfate premix 2 GM/50 ML PIGGYBACK IV (08:29)
--- NOTE | 2020-02-03 08:50 | PC.NURSE ---
Dr. Vyas bedside discussing POC at this time. Continue to administer meds peripheral instead of PICC. Plans to discharge home on hospice today.
[2020-02-03] MEDS: aspirin 81 mg EC Tablet PO (08:54)
[2020-02-03] MEDS: pantoprazole DR 40 mg Tablet PO (08:54)
[2020-02-03] MEDS: tamsulosin 0.4 mg Capsule PO (08:54)
--- NOTE | 2020-02-03 11:21 | PC.SOCIAL ---
IMM Updated Updated pt on Pg 2 IMM. Provided pt a copy. No questions voiced. Signed, dated, & timed copy in chart.
--- NOTE | 2020-02-03 11:35 | P.DS_ITS ---
Discharge Providers Date of Admission: 01/25/20 17:53 Date of Discharge: February 03, 2020 Attending Provider at Admission: Jaicnto Mcgee Attending Provider at Discharge: Deshawn Vyas MD Diagnoses at Discharge Discharge Diagnosis (1) Sepsis: Status: Acute Problem details: Resolved (2) Pneumonia: Status: Acute (3) Bilateral hydronephrosis: Status: Acute Problem details: Secondary to obstruction at prostate level. (4) Hematuria: Status: Acute Problem details: Gross, improved Qualifiers: Hematuria type: gross Qualified Code(s): R31.0 - Gross hematuria (5) LASHON (acute kidney injury): Status: Acute (6) Elevated d-dimer: Status: Acute (7) Paroxysmal atrial fibrillation with RVR: Status: Acute (8) COPD (chronic obstructive pulmonary disease): Status: Acute (9) Troponin level elevated: Status: Acute (10) Hypertension: Status: Acute (11) Rash of genital area: Status: Acute (12) Smoker unmotivated to quit: Status: Acute (13) Acute anemia: Status: Acute Problem details: Stable (14) Systolic heart failure: Status: Acute Problem details: Currently compensated. (15) Bacteremia: Status: Acute Reason for Visit Reason for Visit: RESP DISTRESS Hospital Course Discharge Summary: Patient presented with respiratory distress. He had history of laryngeal cancer status post surgery and radiation therapy. He continues to smoke. He had urinary retention and UTI with bacteremia growing Proteus. Per patient's mental and functional status gradually declined over the last 6 months. Over the last several months he has not been able to walk. Patient was treated with antibiotics and gradually improved. He is oriented to self and place but otherwise does not appear to be able to make his own decisions. He cannot maintain normal conversation. He does answer simple questions appropriately. He denies shortness of breath or chest pain this morning denies abdominal pain. He wants to go home and patient's decided to proceed with home hospice. She did not give permission to have PICC line placed therefore we are trying to arrange IV administration of ertapenem through peripheral line for the next 1 week. We will keep Linder catheter in and request outpatient follow-up with Dr. Sellers to see if voiding trials can be tried. Because of hematuria we will discontinue Eliquis as patient's risk of bleeding exceeds benefit. Patient's Linder this morning showed clear urine after manual bladder irrigation. I was told that overnight there were some clots noted. Linder is working and drains urine well. Patient is not interested in smoking cessation. Patient has poor long-term prognosis. He is not eating much. Physical Exam Const: COMMON NORMALS: no acute distress Resp: COMMON NORMALS: normal respiratory effort and clear to auscultation bilaterally AUSCULTATION: clear to auscultation bilaterally Cardio: COMMON NORMALS: regular rate, regular rhythm and S2 normal heart sound present RATE: regular rate RHYTHM: regular rhythm HEART SOUNDS: S2 normal heart sound present OTHER: No lower extremity edema GI: COMMON NORMALS: Normal to inspection, nondistended, normoactive bowel sounds present, Soft to palpation and non-tender PALPATION: Yes Soft to palpation Urinary Catheter Management^: Linder: Cath Placed During This Visit: yes, but has since been removed by the nurse Reason for Continuing Indwelling Catheter: Accurate Measurement of Urinary Output in Critically Ill Patients Date Urinary Catheter Removed: 01/25/20 Time Urinary Catheter Discontinued: 22:20 3-way Urethral CBI: Cath Placed During This Visit: no Reason for Continuing Indwelling Catheter: Hospice/Comfort/Palliative Care Discharge Data Data Completed and Pending: Completed Studies During Hospitalization Category Date Time Status CT abdomen pelvis wo con [id number] Urge nt Cat Scan 01/25/20 16:[address] lumbar spine w o con* [id number] Urgen t Cat Scan 01/25/20 20:[address] pelvis wo con [id number] Routine Cat Scan 01/25/20 Completed XR chest 1V andrea ble [id number] Routine Exams 01/27/20 06:00 Completed XR chest 1V andrea ble [id number] Stat Exams 01/25/20 14:39 Completed CV echo complete* [id number] Routine Ultrasound 01/27/20 21:30 [place] [id number] Urgent Ultrasound 01/25/20 16:06 Completed Pending at discharge Category Date Time Status Complete Blood Co unt w/Auto AM LABS Lab 02/04/20 04:00 Ordered Complete Blood Co unt w/Auto AM LABS Lab 02/05/20 04:00 Ordered Comprehensive Met abolic Panel AM LA BS Lab 02/04/20 04:00 Ordered Comprehensive Met abolic Panel AM LA BS Lab 02/05/20 04:00 Ordered Immunochemical Fe kenisha OCB Routine Lab 01/26/20 11:45 Uncollected Magnesium AM LABS Lab 02/04/20 04:00 Ordered Magnesium AM LABS Lab 02/05/20 04:00 Ordered Sputum Culture an d Gram Stain Stat Lab 01/25/20 14:39 Uncollected Labs from last 24 hours 02/03/20 02/03/20 02/03/20 06:37 04:57 04:57 WBC 9.6 Cancelled Corrected WBC Cancelled RBC 3.14 L Cancelled Hgb 9.5 L Cancelled Hct 30.4 L Cancelled MCV 96.8 H Cancelled MCH 30.3 Cancelled MCHC 31.3 Cancelled RDW 15.0 Cancelled Plt Count 274 Cancelled MPV 10.9 H Cancelled Gran % Cancelled Neut % (Auto) 78.5 Cancelled Lymph % (Auto) 7.8 Cancelled Mcnairy % (Auto) 12.0 Cancelled Eos % (Auto) 0.4 Cancelled Baso % (Auto) 0.1 Cancelled Neut # (Auto) 7.56 Cancelled Lymph # (Auto) 0.8 Cancelled Mcnairy # (Auto) 1.2 H Cancelled Eos # (Auto) 0.0 Cancelled Baso # (Auto) 0.0 Cancelled Absolute Gran (aut o) Cancelled Nucleated RBC % (a uto) 0 Cancelled Nucleated RBCs # 0.0 Cancelled Sodium 142 Potassium 4.2 Chloride 105 Carbon Dioxide 32 H Anion Gap 9.2 BUN 25 H Creatinine 0.8 GFR Calculation Not Reportable Glucose 102 Calculated Osmolal ity 291 Calcium 7.8 L Magnesium 1.6 L Total Bilirubin 0.7 AST 22 ALT 15 Alkaline Phosphata se 70 Total Protein 4.9 L Albumin 2.5 L Globulin 2.4 Vitals: Last Vital Signs Temp 97.9 F 02/03/20 10:47 Pulse 65 02/03/20 10:47 Resp 18 02/03/20 10:47 BP 96/57 02/03/20 10:47 Pulse Ox 94 02/03/20 10:47 Discharge Plan Discharge Patient Disposition: Hospice - Home Condition: Stable Prescriptions: New atorvastatin 40 mg Tablet 40 mg PO BEDTIME Qty: 30 RF: 0 Advair Diskus 250-50 mcg/dose Blister With Device 1 puff inhalation BID.RESPIRATORY Qty: 1 RF: 0 acetaminophen 325 mg Tablet 650 mg PO Q6H PRN (Reason: Mild/Mod Pain Or Temp >/= 101) Qty: 30 RF: 0 aspirin 81 mg Tablet,Delayed Release (Dr/Ec) 81 mg PO DAILY Qty: 30 RF: 0 bisoprolol fumarate 5 mg Tablet 10 mg PO DAILY Qty: 30 RF: 0 tamsulosin 0.4 mg Capsule 0.4 mg PO DAILY Qty: 30 RF: 0 pantoprazole 40 mg Tablet,Delayed Release (Dr/Ec) 40 mg PO DAILY Qty: 30 RF: 0 ertapenem 1 gram recon soln 1 gm IV DAILY 7 Days Qty: 7 RF: 0 Discontinued lisinopril 10 mg tablet 10 mg PO DAILY RF: 0 Discharge Orders: Discharge Order (Routine); Ordered 02/03/20 Ordered By: Deshawn Vyas Referrals: Juan Antonio EARL [Other] Sandip Sellers MD [Physician] - 2 weeks (Dr lea office will be calling you to set up a follow up appointment. ) Discharge Diet: Advance as tolerated Discharge Activity: Increase activity as tolerated Patient Instructions: Acetaminophen (By mouth), Aspirin (By mouth), Atorvastatin (By mouth), Tamsulosin (By mouth), Bisoprolol (By mouth), Pantoprazole (By mouth), Fluticasone/Salmeterol (By breathing), Ertapenem (Injection), Linder Catheter Care Activity Restrictions/Additional Instructions: Please discuss with hospice nurse or physician if you have any questions. 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
--- NOTE | 2020-02-03 17:16 | PC.NURSE ---
Patient discharged home with hospice to follow, Patients [place] given discharge instructions. Verbalized understanding noted. Patient assisted with dressing and to wheel chair. patient accompanied to private vehicle by staff and o2 in place educated on IV that stayed in place per per orders.
--- NOTE | 2020-02-03 17:30 | PC.NURSE ---
Patient discharged home with hospice services. Patient left [facility] via w/c to surgical services exit with spouse present. All discharge instructions and personal belongings were sent home with patient and . IV in place for peripheral antibiotics at home per orders. Patients verbalized understandings of all discharge instructions. 1720 when patient was discharged home.
== END 2020-02-03 17:20 | disposition hospice, home (50) | DRG 871 ==
LOC: ER 16:38 → ICU 18:10 → CSU 01-29 17:30
PROVIDERS: Family Medicine; Admitting Provider Internal Medicine; Visit Provider Internal Medicine
DX: A41.9 Sepsis, unspecified organism (principal); R65.21 Severe sepsis with septic shock; J69.0 Pneumonitis due to inhalation of food and vomit; I21.A1 Myocardial infarction type 2; J96.01 Acute respiratory failure with hypoxia; I26.99 Other pulmonary embolism without acute cor pulmonale; N13.30 Unspecified hydronephrosis; N17.9 Acute kidney failure, unspecified; I50.22 Chronic systolic (congestive) heart failure; E87.2 Acidosis; N39.0 Urinary tract infection, site not specified; Z85.21 Personal history of malignant neoplasm of larynx; Z92.3 Personal history of irradiation; Z92.21 Personal history of antineoplastic chemotherapy; F17.210 Nicotine dependence, cigarettes, uncomplicated; J43.9 Emphysema, unspecified; I95.9 Hypotension, unspecified; I48.0 Paroxysmal atrial fibrillation; I11.0 Hypertensive heart disease with heart failure; R21 Rash and other nonspecific skin eruption; M79.606 Pain in leg, unspecified; R15.9 Full incontinence of feces; R32 Unspecified urinary incontinence; B96.4 Proteus (mirabilis) (morganii) as the cause of diseases classified elsewhere; D50.0 Iron deficiency anemia secondary to blood loss (chronic); E86.0 Dehydration; L89.109 Pressure ulcer of unspecified part of back, unspecified stage; L89.009 Pressure ulcer of unspecified elbow, unspecified stage; Z91.81 History of falling; D64.9 Anemia, unspecified; N32.0 Bladder-neck obstruction; R33.9 Retention of urine, unspecified
CPT/HCPCS: 12345; 36415; 36569; 36600; 51702; 71045; 72131; 72192; 74176; 80051; 80053; 80061; 81001; 82728; 82810; 83036; 83605; 83615; 83735; 83880; 83986; 84145; 84484; 85018; 85025; 85049; 85378; 85384; 85610; 85730; 86140; 86592; 87040; 87077; 87086; 87186; 87205; 87426; 87491; 87530; 87591; 92610; 93005; 93306; 93970; 94640; 94660; 94664; 96372; 96375; 97166; 99284; A4216; C9113; J0330; J0696; J0743; J1265; J1644; J1940; J1956; J2020; J2270; J2543; J2704; J2930; J3475; J3486; J3490; J7030